=== PATIENT | female | born 1965 | race Caucasian/White ===

== ENCOUNTER 2017-03-24 07:50 | Emergency (ER) | payer SELFPAY ==
[~2017-03-24] VITALS: Ht 172.7 cm; Wt 75.0 kg
[~2017-03-24 07:50] MED LIST: BACT800T5 PO; DOXY100T PO
[2017-03-24 07:51] VITALS: BP 195/126; PULSE 98; RESP 14; TEMP 98; O2SAT 96
[2017-03-24 07:54] VITALS: BP 156/111; PULSE 82; RESP 16; O2SAT 98
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
== END 2017-03-24 08:33 | disposition left against medical advice (07) ==
LOC: NEPK 07:50
DX: J02.9 Acute pharyngitis, unspecified (principal)
CPT/HCPCS: 99281

== ENCOUNTER 2017-08-07 05:24 | Inpatient (IN) | payer OTHER ==
[~2017-08-07] VITALS: Ht 170.2 cm; Wt 52.8 kg
[2017-08-07] VITALS (17 sets, daily range): BP systolic 118–193; BP diastolic 84–122; PULSE 82–130; RESP 16–28; TEMP 97.7–98.8; O2SAT 95–100
[2017-08-07] MEDS ORDERED: RESP: LIDOCAINE HCL 4% PF 5 ML NEB NEB ONE (05:30)
[2017-08-07] MEDS ORDERED: DEXAMETHASONE SOD PHOS 4 MG/ML VIAL OTHER ONE (05:30)
[2017-08-07] MEDS ORDERED: DEXAMETHASONE SOD PHOS 4 MG/ML VIAL IM ONE (05:30)
[2017-08-07] MEDS ORDERED: DEXAMETHASONE SOD PHOS 20 MG/5 ML VIAL IV PUSH ONE (05:45)
[2017-08-07] MEDS ORDERED: hydrALAZINE HCL 20 MG/ML VIAL IV PUSH ONE (05:45)
[2017-08-07 06:02] LABS: BASOPHIL % 0.6 % (0.0-2.0); EOSINOPHIL # 0.1 TH/MM3 (0-0.4); EOSINOPHIL % 0.9 % (0.0-4.0); HEMATOCRIT 52.4 % (35.0-46.0); HEMOGLOBIN 18.8 GM/DL (11.6-15.3); LYMPH % 16.4 % (9.0-44.0); LYMPHOCYTE # 1.1 TH/MM3 (1.0-4.8); MEAN CELL VOLUME 97.1 FL (80.0-100.0); MEAN CORPUSCULAR HEMOGLOBIN 34.7 PG (27.0-34.0); MEAN CORPUSCULAR HGB CONC 35.8 % (32.0-36.0); MEAN PLATELET VOLUME 8.2 FL (7.0-11.0); MONO % 9.6 % (0.0-8.0); MONOCYTE # 0.7 TH/MM3 (0-0.9); NEUT % 72.5 % (16.0-70.0); PLATELET COUNT 209 TH/MM3 (150-450); WHITE BLOOD COUNT 6.9 TH/MM3 (4.0-11.0)
--- NOTE | 2017-08-07 06:11 | RADRPT ---
EXAM DATE/TIME: 08/07/2017 05:38 [facility] COMPARISON: No previous studies available for comparison. INDICATIONS : Short of breath. MEDICAL HISTORY : None. SURGICAL HISTORY : None. ENCOUNTER: Initial ACUITY: 1 day PAIN SCORE: 06/26 LOCATION: Bilateral chest FINDINGS: A single view of the chest demonstrates the lungs to be symmetrically aerated without evidence of mas s, infiltrate or effusion. The cardiomediastinal contours are unremarkable. Osseous structures are intact. CONCLUSION: No acute disease. Walker Sharif MD on August 07, 2017 at 6:10 Board Certified Radiologist. This report was verified electronically.
[2017-08-07 06:15] LABS: PROTHROMBIN TIME - PATIENT 9.9 SEC (9.8-11.6)
--- NOTE | 2017-08-07 06:22 | PD ---
HPI . Respiratory distress Chief Complaint: Respiratory Distress Time Seen by Provider: 05:28 Travel History International Travel<30 days: No Contact w/Intl Traveler<30days: No Traveled to known affect area: No History of Present Illness HPI 52-year-old female complains of having respiratory distress, difficulty breathing, states that "it feels like him breathing through a straw" this is been progressive over the past several months. Patient is a heavy active smoker for many years. Patient denies any fevers chills sweats, cough, production of sputum, leg edema or pain PFSH Past Medical History Narrative Medical Past medical history reviewed Hx Anticoagulant Therapy: No Cardiovascular Problems: Yes Chemotherapy: No COPD: Yes Cerebrovascular Accident: No Diabetes: Yes Patient Takes Glucophage: No Hypertension: Yes Respiratory: Yes Tetanus Vaccination: Unknown Influenza Vaccination: No ?: Not : 3 Para: 3 Past Surgical History Surgical History: No Previous Surgery Hysterectomy: No Social History Alcohol Use: Yes (A COUPLE OF TIMES A WEEK) Tobacco Use: Yes (1 PPD) Substance Use: Yes (MARIJUANA) Allergies-Medications (Allergen,Severity, Reaction): Coded Allergies: *MDRO Multi-Drug Resistant Organism (Verified Adverse Reaction, Unknown, ) MRSA (wound) - 11/07/15 Reported Meds & Prescriptions Reported Meds & Active Scripts Active No Active Prescriptions or Reported Medications Narrative Medication Allergies and medications reviewed Review of Systems Except as stated in HPI: all other systems reviewed are Neg General / Constitutional: No: Fever Eyes: No: Visual changes HENT: No: Headaches Cardiovascular: No: Chest Pain or Discomfort Respiratory: Positive: Shortness of Breath, Stridor, No: Cough, Wheezing, Sneezing, Orthopnea, Hemoptysis, Night Sweats, Pleuritic Pain Gastrointestinal: No: Abdominal Pain Genitourinary: No: Dysuria Musculoskeletal: No: Pain Skin: No Rash Neurologic: No: Weakness Psychiatric: No: Depression Endocrine: No: Polydipsia Hematologic/Lymphatic: No: Easy Bruising Physical Exam Narrative GENERAL: Awake and alert oriented 3 in mild to moderate respiratory distress. Oxygen saturation 96% on room air SKIN: Warm and dry. Color is normal diaphoresis and pallor HEAD: Atraumatic. Normocephalic. EYES: Pupils equal and round. No scleral icterus. No injection or drainage. ENT: No nasal bleeding or discharge. Mucous membranes pink and moist. NECK: Trachea midline. No JVD. Positive stridorous respirations. Possible right sided neck mass anteriorly CARDIOVASCULAR: Regular rate and rhythm. S1-S2 no murmurs rubs gallops RESPIRATORY: No accessory muscle use. Clear to auscultation. Breath sounds equal bilaterally. GASTROINTESTINAL: Abdomen soft, non-tender, nondistended. Hepatic and splenic margins not palpable. MUSCULOSKELETAL: Extremities without clubbing, cyanosis, or edema. No obvious deformities. NEUROLOGICAL: Awake and alert. No obvious gross focal deficits PSYCHIATRIC: Appropriate mood and affect; insight and judgment normal. Data Data Last Documented VS Vital Signs Date Time Temp Pulse Resp B/P (MAP) Pulse Ox O2 Delivery O2 Flow Rate FiO2 08/07/17 05:48 82 28 146/93 (110) 100 Room Air 08/07/17 05:26 97.7 Orders Orders Complete Blood Count With Diff (08/07/17 05:28) Comprehensive Metabolic Panel (08/07/17 05:28) B-Type Natriuretic Peptide (08/07/17 05:28) Act Partial Throm Time (Ptt) (08/07/17 05:28) Prothrombin Time / Inr (Pt) (08/07/17 05:28) Magnesium (Mg) (08/07/17 05:28) Ckmb (Isoenzyme) Profile (08/07/17 05:28) Troponin I (08/07/17 05:28) Urinalysis - C+S If Indicated (08/07/17 05:28) Iv Access Insert/Monitor (08/07/17 05:28) Electrocardiogram (08/07/17 05:28) Ecg Monitoring (08/07/17 05:28) Oximetry (08/07/17 05:28) Oxygen Administration (08/07/17 05:28) Chest, Single Ap (08/07/17 05:28) Sodium Chloride 0.9% Flush (Ns Flush) (08/07/17 05:30) Dexamethasone Inj (Decadron Inj) (08/07/17 05:30) Lidocaine Pf 4% Neb (Lidocaine Pf 4% Neb (08/07/17 05:30) Hydralazine Inj (Apresoline Inj) (08/07/17 05:45) Dexamethasone Inj (Decadron Inj) (08/07/17 05:45) Ct Soft Tiss Neck W Iv Cont (08/07/17 ) Iohexol 350 Inj (Omnipaque 350 Inj) (08/07/17 06:41) Labs Laboratory Tests Test 08/07/17 05:47 08/07/17 06:53 White Blood Count 6.9 TH/MM3 Red Blood Count 5.40 MIL/MM3 Hemoglobin 18.8 GM/DL Hematocrit 52.4 % Mean Corpuscular Volume 97.1 FL Mean Corpuscular Hemoglobin 34.7 PG Mean Corpuscular Hemoglobin Concent 35.8 % Red Cell Distribution Width 13.0 % Platelet Count 209 TH/MM3 Mean Platelet Volume 8.2 FL Neutrophils (%) (Auto) 72.5 % Lymphocytes (%) (Auto) 16.4 % Monocytes (%) (Auto) 9.6 % Eosinophils (%) (Auto) 0.9 % Basophils (%) (Auto) 0.6 % Neutrophils # (Auto) 5.0 TH/MM3 Lymphocytes # (Auto) 1.1 TH/MM3 Monocytes # (Auto) 0.7 TH/MM3 Eosinophils # (Auto) 0.1 TH/MM3 Basophils # (Auto) 0.0 TH/MM3 CBC Comment DIFF FINAL Differential Comment Prothrombin Time 9.9 SEC Prothromb Time International Ratio 1.0 RATIO Activated Partial Thromboplast Time 26.8 SEC Blood Urea Nitrogen 2 MG/DL Creatinine 0.50 MG/DL Random Glucose 94 MG/DL Total Protein 7.9 GM/DL Albumin 3.8 GM/DL Calcium Level 9.4 MG/DL Magnesium Level 2.0 MG/DL Alkaline Phosphatase 141 U/L Aspartate Amino Transf (AST/SGOT) 61 U/L Alanine Aminotransferase (ALT/SGPT) 56 U/L Total Bilirubin 0.8 MG/DL Sodium Level 126 MEQ/L Potassium Level 3.6 MEQ/L Chloride Level 85 MEQ/L Carbon Dioxide Level 33.3 MEQ/L Anion Gap 8 MEQ/L Estimat Glomerular Filtration Rate 131 ML/MIN Total Creatine Kinase 66 U/L Troponin I LESS THAN 0.02 NG/ML B-Type Natriuretic Peptide 58 PG/ML Urine Color LIGHT-YELLOW Urine Turbidity CLEAR Urine pH 7.5 Urine Specific Reeves 1.040 Urine Protein NEG mg/dL Urine Glucose (UA) NEG mg/dL Urine Ketones 10 mg/dL Urine Occult Blood NEG Urine Nitrite NEG Urine Bilirubin NEG Urine Urobilinogen LESS THAN 2.0 MG/DL Urine Leukocyte Esterase MOD Urine RBC 1 /hpf Urine WBC 5 /hpf Urine Squamous Epithelial Cells 1 /hpf Urine Bacteria RARE /hpf Microscopic Urinalysis Comment CULT NOT INDICATED MDM Medical Decision Making Medical Screen Exam Complete: Yes Emergency Medical Condition: Yes Medical Record Reviewed: Yes Differential Diagnosis Stridor, neck mass, COPD exacerbation Narrative Course Patient had no improvement with Decadron/lidocaine via nebulizer treatment. Laboratory examination reviewed, no significant abnormalities CT soft tissue neck, right-sided. Her laryngeal mass consistent with exam and presentation. Pending ENT evaluation and admission to medical service Diagnosis Primary Impression: Laryngeal mass Additional Impression: Stridor Admitting Information Admitting Physician Requests: Admit Scripts No Active Prescriptions or Reported Meds Errol Velez MD Aug 07, 2017 06:22
[2017-08-07 06:30] LABS: ALBUMIN 3.8 GM/DL (3.4-5.0); ALT (GPT) 56 U/L (10-53); AST (GOT) 61 U/L (15-37); BICARBONATE 33.3 MEQ/L (21.0-32.0); BLOOD UREA NITROGEN 2 MG/DL (7-18); CALCIUM 9.4 MG/DL (8.5-10.1); CHLORIDE 85 MEQ/L (98-107); GLOMERULAR FILTRATION RATE 131 ML/MIN (>89); GLUCOSE,RANDOM 94 MG/DL (74-106); SODIUM (NA) 126 MEQ/L (136-145)
[2017-08-07 06:34] LABS: ALKALINE PHOSPHATASE 141 U/L (45-117); TOTAL BILIRUBIN ADULT 0.8 MG/DL (0.2-1.0); TOTAL PROTEIN 7.9 GM/DL (6.4-8.2); TROPONIN I LESS THAN 0.02 NG/ML (0.02-0.05)
[2017-08-07] MEDS ORDERED: IOHEXOL 350 MG/ML 10 ML VIAL (for RAD DIAG) IVCONTRAST ONE (06:41)
--- NOTE | 2017-08-07 07:00 | RADRPT ---
EXAM DATE/TIME: 08/07/2017 06:35 This report includes an Addendum and supersedes previous reports for this exam. [facility] COMPARISON: No previous studies available for comparison. INDICATIONS : Stridor. Difficulty breathing. Evaluate for mass. IV CONTRAST: 72 cc Omnipaque 350 (iohexol) IV RADIATION DOSE: 13.44 CTDIvol (mGy) MEDICAL HISTORY : Chronic obstructive pulmonary disease. Hypertension. SURGICAL HISTORY : None. ENCOUNTER: Initial ACUITY: 1 day PAIN SCALE: 6/10 LOCATION: Bilateral neck TECHNIQUE: Volumetric scanning of the neck was performed. Using automated exposure control and adjustment of th e mA and/or kV according to patient size, radiation dose was kept as low as reasonably achievable to obtain optimal diagnostic quality images. DICOM format image data is available electronically for r eview and comparison. FINDINGS: NASOPHARYNX: The nasopharyngeal airway has a normal configuration. No mucosal thickening or mass is seen. OROPHARYNX: The intrinsic muscles of the tongue are symmetric. The tonsillar pillars are intact. The prevertebr al soft tissues are not thickened. LARYNX: There is a soft tissue mass involving the left piriform sinus and aryepiglottic fold. This is indisti nct and demonstrates areas of enhancement. This measures up to at least 2 cm in diameter. There is mi dline shift of the soft tissue structures to the right. The airway is mild to moderately narrowed. PARAPHARYNGEAL: The parapharyngeal space is intact. SALIVARY GLANDS: The parotid and submandibular glands are intact. LYMPH NODES: No enlarged or necrotic-appearing nodes. There is small left cervical chain nodes measuring up to a c entimeter which may be reactive. THYROID: Homogeneous enhancement without evidence of nodule. BONES: Unremarkable. There is emphysema in the lung apices. CONCLUSION: 1. Soft tissue mass involving left performed sinuses and aryepiglottic folds most characteristic of a tumor. Direct visualization is recommended. 2. Small left cervical chain nodes which may be reactive. 3. Emphysema in the lung apices. Walker Sharif MD on August 07, 2017 at 6:54 Board Certified Radiologist. This report was verified electronically. 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 There is extra laryngeal pe netration by the mass into the left anterolateral subcutaneous soft tissues at the level of the commi ssure. Infraglottic extension of the mass is seen concentrically involving the cricoid cartilage. Arnaldo Okeefe MD on August 21, 2017 at 15:23 Board Certified Radiologist. This report was verified electronically.
[2017-08-07 07:21] LABS: BACTERIA, URINE RARE /hpf; BILIRUBIN, URINE NEG (NEG); BLOOD, URINE NEG (NEG); GLUCOSE,URINE NEG (NEG); KETONE, URINE 10 mg/dL (NEG); NITRITE,URINE NEG (NEG); PH, URINE 7.5 (5.0-8.5); SQUAMOUS EPITHELIAL CELL URINE 1 /hpf (0-5); URINE COLOR LIGHT-YELLOW (YELLW/STRAW); URINE LEUKOCYTE ESTERASE MOD (NEG)
[2017-08-07] MEDS ORDERED: RESP: ALBUTEROL 1.25 MG/3 ML NEB (PRN) NEB (07:45)
[2017-08-07] MEDS ORDERED: ONDANSETRON HCL 4 MG/2 ML VIAL IV PUSH PRN (07:45)
[2017-08-07] MEDS ORDERED: SODIUM CHLOR 0.9% 1000 ML INJ 1,000 ML IV SCH (07:45)
--- NOTE | 2017-08-07 07:50 | EKG ---
Date Performed: 08/07/2017 Time Performed: 05:30:35 PTAGE: 52 years EKG: SINUS TACHYCARDIA RIGHT ATRIAL ENLARGEMENT POSSIBLE LEFT ATRIAL ENLARGEMENT ABNORMAL ECG NO PREVIOUS TRACING DOCTOR: Jose Bedoya Interpretating Date/Time 08/07/2017 07:49:20
--- NOTE | 2017-08-07 08:01 | HHI.HP ---
[facility] Service [facility] Primary Care Physician No Primary Care Physician Admission Diagnosis neck mass, airway impingement Diagnoses: (1) Laryngeal mass Diagnosis: Principal Chief Complaint: hoarseness Travel History International Travel<30 Days: No Contact w/Intl Traveler <30 Da: No Traveled to Known Affected Are: No History of Present Illness patient is a 52 y/o female , chronic smoker with history of alcohol abuse, who presented to ER with hoarseness. she says that it's been going on for a couple of months. she's complaining of difficult breathing and swallowing for the past two months. she's lost about 15 pounds over the past few weeks.she's having cough productive of whitish sputum with no report of fever or chills. she says that it seems that her hoarseness has been getting worse. Review of Systems Constitutional: COMPLAINS OF: Weight loss, DENIES: Fever, Chills, Night Sweats Eyes: DENIES: Blurred vision, Diplopia, Vision loss, Double Vision Ears, nose, mouth, throat: COMPLAINS OF: Hoarseness, DENIES: Tinnitus, Vertigo , Throat pain, Epistaxis Respiratory: COMPLAINS OF: Cough, Sputum production, Shortness of breath, DENIES: Apneas, Snoring, Wheezing, Hemoptysis Cardiovascular: DENIES: Chest pain, Palpitations, Syncope, Dyspnea on Exertion , PND, Lower Extremity Edema, Orthopnea, Claudication Gastrointestinal: COMPLAINS OF: Difficulty Swallowing, DENIES: Abdominal pain, Black stools, Bloody stools, Constipation, Diarrhea, Nausea, Vomiting, Anorexia Genitourinary: DENIES: Urinary frequency, Urgency, Hematuria, Dysuria Musculoskeletal: DENIES: Joint pain, Muscle aches, Stiffness, Joint Swelling Integumentary: DENIES: Rash Neurologic: DENIES: Abnormal gait, Headache, Localized weakness, Paresthesias, Seizures, Speech Problems, Tremor, Poor Balance Psychiatric: DENIES: Anxiety, Confusion, Mood changes, Depression, Hallucinations, Agitation, Suicidal Ideation, Homicidal Ideation, Delusions Past Family Social History Past Medical History not significant except questionable diabetes. Past Surgical History tubal ligation. Reported Medications none. Allergies: Coded Allergies: *MDRO Multi-Drug Resistant Organism (Verified Adverse Reaction, Unknown, ) MRSA (wound) - 11/07/15 Active Ordered Medications Inpatient Medications Dexamethasone Sodium Phosphate (Decadron Inj) 10 mg ONCE ONCE IV PUSH Last administered on 08/07/17at 05:46; Start 08/07/17 at 05:45; Stop 08/07/17 at 05:46 ; Status DC Hydralazine HCl (Apresoline Inj) 10 mg ONCE ONCE IV PUSH Last administered on 08/07/17at 05:44; Start 08/07/17 at 05:45; Stop 08/07/17 at 05:46; Status DC Lidocaine HCl (Lidocaine Pf 4% Neb) 1 ml ONCE ONCE NEB Last administered on at 05:30; Start 08/07/17 at 05:30; Stop 08/07/17 at 05:31; Status DC Sodium Chloride (NS Flush) 2 ml UNSCH PRN IVF FLUSH AFTER USING IV ACCESS; Start 08/07/17 at 05:30 Family History cancer in mother. Social History used to smoke one pack and half a day with heavy alcohol abuse. Physical Exam Vital Signs Vital Signs Date Time Temp Pulse Resp B/P (MAP) Pulse Ox O2 Delivery O2 Flow Rate FiO2 08/07/17 07:10 98.1 95 22 142/99 (113) 96 Room Air 08/07/17 07:10 96 Room Air 08/07/17 07:10 118 22 96 Room Air 08/07/17 07:10 22 96 Room Air 08/07/17 05:48 82 28 146/93 (110) 100 Room Air 08/07/17 05:34 100 Room Air 08/07/17 05:34 107 99 Room Air 08/07/17 05:34 24 100 Room Air 08/07/17 05:26 97.7 122 24 193/122 (145) 98 Physical Exam GENERAL: in no acute distress but sounds hoarse. SKIN: No rashes, ecchymoses or lesions. Cool and dry. HEAD: Atraumatic. Normocephalic. No temporal or scalp tenderness. EYES: Pupils equal round and reactive. Extraocular motions intact. No scleral icterus. No injection or drainage. ENT: Nose without bleeding, purulent drainage or septal hematoma. Throat without erythema, tonsillar hypertrophy or exudate. Uvula midline. Airway patent. NECK: Trachea midline. No JVD or lymphadenopathy. Supple, nontender, no meningeal signs. CARDIOVASCULAR: Regular rate and rhythm without murmurs, gallops, or rubs. RESPIRATORY: Clear to auscultation. Breath sounds equal bilaterally. No wheezes , rales, or rhonchi. GASTROINTESTINAL: Abdomen soft, non-tender, nondistended. No hepato-splenomegaly , or palpable masses. No guarding. MUSCULOSKELETAL: Extremities without clubbing, cyanosis, or edema. No joint tenderness, effusion, or edema noted. No calf tenderness. Negative Homans sign bilaterally. NEUROLOGICAL: Awake and alert. Cranial nerves II through XII intact. Motor and sensory grossly within normal limits. Five out of 5 muscle strength in all muscle groups. Normal speech. Laboratory Laboratory Tests Test 08/07/17 05:47 08/07/17 06:53 White Blood Count 6.9 Red Blood Count 5.40 Hemoglobin 18.8 Hematocrit 52.4 Mean Corpuscular Volume 97.1 Mean Corpuscular Hemoglobin 34.7 Mean Corpuscular Hemoglobin Concent 35.8 Red Cell Distribution Width 13.0 Platelet Count 209 Mean Platelet Volume 8.2 Neutrophils (%) (Auto) 72.5 Lymphocytes (%) (Auto) 16.4 Monocytes (%) (Auto) 9.6 Eosinophils (%) (Auto) 0.9 Basophils (%) (Auto) 0.6 Neutrophils # (Auto) 5.0 Lymphocytes # (Auto) 1.1 Monocytes # (Auto) 0.7 Eosinophils # (Auto) 0.1 Basophils # (Auto) 0.0 CBC Comment DIFF FINAL Differential Comment Prothrombin Time 9.9 Prothromb Time International Ratio 1.0 Activated Partial Thromboplast Time 26.8 Blood Urea Nitrogen 2 Creatinine 0.50 Random Glucose 94 Total Protein 7.9 Albumin 3.8 Calcium Level 9.4 Magnesium Level 2.0 Alkaline Phosphatase 141 Aspartate Amino Transf (AST/SGOT) 61 Alanine Aminotransferase (ALT/SGPT) 56 Total Bilirubin 0.8 Sodium Level 126 Potassium Level 3.6 Chloride Level 85 Carbon Dioxide Level 33.3 Anion Gap 8 Estimat Glomerular Filtration Rate 131 Total Creatine Kinase 66 Troponin I LESS THAN 0.02 B-Type Natriuretic Peptide 58 Urine Color LIGHT-YELLOW Urine Turbidity CLEAR Urine pH 7.5 Urine Specific [place] 1.040 Urine Protein NEG Urine Glucose (UA) NEG Urine Ketones 10 Urine Occult Blood NEG Urine Nitrite NEG Urine Bilirubin NEG Urine Urobilinogen LESS THAN 2.0 Urine Leukocyte Esterase MOD Urine RBC 1 Urine WBC 5 Urine Squamous Epithelial Cells 1 Urine Bacteria RARE Microscopic Urinalysis Comment CULT NOT INDICATED Result Diagram: 08/07/17 0547 08/07/17 0547 Imaging Last Impressions Chest X-Ray 08/07/17 0528 Signed Impressions: Service Date/Time: Monday, August 07, 2017 05:38 - CONCLUSION: No acute disease. Walker Sharif MD Neck CT 08/07/17 0000 Signed Impressions: Service Date/Time: Monday, August 07, 2017 06:35 - CONCLUSION: 1. Soft tissue mass involving left performed sinuses and aryepiglottic folds most characteristic of a tumor. Direct visualization is recommended. 2. Small left cervical chain nodes which may be reactive. 3. Emphysema in the lung apices. Walker Sharif MD Caproycei VTE Risk Assessment Caprini VTE Risk Assessment: Mod/High Risk (score >= 2) Caprini Risk Assessment Model Point Value = 1 Point Value = 2 Point Value = 3 Point Value = 5 Age 41-60 Minor surgery BMI > 25 kg/m2 Swollen legs Varicose veins or History of unexplained or recurrent spontaneous Oral contraceptives or hormone replacement Sepsis (< 1 month) Serious lung disease, including pneumonia (< 1 month) Abnormal pulmonary function Acute myocardial infarction Congestive heart failure (< 1 month) History of inflammatory bowel disease Medical patient at bed rest Age 61-74 Arthroscopic surgery Major open surgery (> 45 min) Laparoscopic surgery (> 45 min) Malignancy Confined to bed (> 72 hours) Immobilizing plaster cast Central venous access Age >= 75 History of VTE Family history of VTE Factor V Leiden Prothrombin [id number] Lupus anticoagulant Anticardiolipin antibodies Elevated serum homocysteine Heparin-induced thrombocytopenia Other congenital or acquired thrombophilia Stroke (< 1 month) Elective arthroplasty Hip, pelvis, or leg fracture Acute spinal cord injury (< 1 month) Prophylaxis Regimen Total Risk Factor Score Risk Level Prophylaxis Regimen 0-1 Low Early ambulation 2 Moderate Order ONE of the following: *Sequential Compression Device (SCD) *Heparin 5000 units SQ BID 3-4 Higher Order ONE of the following medications: *Heparin 5000 units SQ TID *Enoxaparin/Lovenox 40 mg SQ daily (WT < 150 kg, CrCl > 30 mL/min) *Enoxaparin/Lovenox 30 mg SQ daily (WT < 150 kg, CrCl > 10-29 mL/min) *Enoxaparin/Lovenox 30 mg SQ BID (WT < 150 kg, CrCl > 30 mL/min) AND/OR *Sequential Compression Device (SCD) 5 or more Highest Order ONE of the following medications: *Heparin 5000 units SQ TID (Preferred with Epidurals) *Enoxaparin/Lovenox 40 mg SQ daily (WT < 150 kg, CrCl > 30 mL/min) *Enoxaparin/Lovenox 30 mg SQ daily (WT < 150 kg, CrCl > 10-29 mL/min) *Enoxaparin/Lovenox 30 mg SQ BID (WT < 150 kg, CrCl > 30 mL/min) AND *Sequential Compression Device (SCD) Assessment and Plan Assessment and Plan A/P - laryngeal mass/ stridor keep NPO for now- consult ENT. received IV steroids earlier. continue with oxygen and neb treatment as needed. -hyponatremia check urine and serum osmolality- check TSH. start on IV NS-continue to monitor the sodium level. -elevated LFT's- likely due to alcohol abuse check hepatitis panel -DVT prophylaxis with SCD's- no chemical prophylaxis till evaluated by roofing laborer and ENT. d/w the ER physician and will roofing laborer will be consulted for possible need for emergent tracheostomy. critical care time 35 min. Discussed Condition With ER physician and the patient. Physician Certification 2 Midnight Certification Type: Admission for Inpatient Services Order for Inpatient Services The services are ordered in accordance with Medicare regulations or non- Medicare payer requirements, as applicable. In the case of services not specified as inpatient-only, they are appropriately provided as inpatient services in accordance with the 2-midnight benchmark. Estimated LOS (days): 2 days is the estimated time the patient will need to remain in the hospital, assuming treatment plan goals are met and no additional complications. Post-Hospital Plan: Home Anuradha Jay MD Aug 07, 2017 08:01
[2017-08-07] MEDS: SODIUM CHLORIDE 0.9% FLUSH 10 ML FLUSH IVF PRN (08:12)
--- NOTE | 2017-08-07 09:08 | PD ---
Physical Exam Narrative Patient originally seen by Dr. Velez. Patient is sitting in the bed comfortably. She is breathing normally, but voice is hoarse. Data Data Last Documented VS Vital Signs Date Time Temp Pulse Resp B/P (MAP) Pulse Ox O2 Delivery O2 Flow Rate FiO2 08/07/17 07:10 98.1 95 22 142/99 (113) 96 Room Air Orders Orders Complete Blood Count With Diff (08/07/17 05:28) Comprehensive Metabolic Panel (08/07/17 05:28) B-Type Natriuretic Peptide (08/07/17 05:28) Act Partial Throm Time (Ptt) (08/07/17 05:28) Prothrombin Time / Inr (Pt) (08/07/17 05:28) Magnesium (Mg) (08/07/17 05:28) Ckmb (Isoenzyme) Profile (08/07/17 05:28) Troponin I (08/07/17 05:28) Urinalysis - C+S If Indicated (08/07/17 05:28) Iv Access Insert/Monitor (08/07/17 05:28) Electrocardiogram (08/07/17 05:28) Ecg Monitoring (08/07/17 05:28) Oximetry (08/07/17 05:28) Oxygen Administration (08/07/17 05:28) Chest, Single Ap (08/07/17 05:28) Sodium Chloride 0.9% Flush (Ns Flush) (08/07/17 05:30) Dexamethasone Inj (Decadron Inj) (08/07/17 05:30) Lidocaine Pf 4% Neb (Lidocaine Pf 4% Neb (08/07/17 05:30) Hydralazine Inj (Apresoline Inj) (08/07/17 05:45) Dexamethasone Inj (Decadron Inj) (08/07/17 05:45) Ct Soft Tiss Neck W Iv Cont (08/07/17 ) Iohexol 350 Inj (Omnipaque 350 Inj) (08/07/17 06:41) Admit Order (Ed Use Only) (08/07/17 ) Labs Laboratory Tests Test 08/07/17 05:47 08/07/17 06:53 White Blood Count 6.9 TH/MM3 Red Blood Count 5.40 MIL/MM3 Hemoglobin 18.8 GM/DL Hematocrit 52.4 % Mean Corpuscular Volume 97.1 FL Mean Corpuscular Hemoglobin 34.7 PG Mean Corpuscular Hemoglobin Concent 35.8 % Red Cell Distribution Width 13.0 % Platelet Count 209 TH/MM3 Mean Platelet Volume 8.2 FL Neutrophils (%) (Auto) 72.5 % Lymphocytes (%) (Auto) 16.4 % Monocytes (%) (Auto) 9.6 % Eosinophils (%) (Auto) 0.9 % Basophils (%) (Auto) 0.6 % Neutrophils # (Auto) 5.0 TH/MM3 Lymphocytes # (Auto) 1.1 TH/MM3 Monocytes # (Auto) 0.7 TH/MM3 Eosinophils # (Auto) 0.1 TH/MM3 Basophils # (Auto) 0.0 TH/MM3 CBC Comment DIFF FINAL Differential Comment Prothrombin Time 9.9 SEC Prothromb Time International Ratio 1.0 RATIO Activated Partial Thromboplast Time 26.8 SEC Blood Urea Nitrogen 2 MG/DL Creatinine 0.50 MG/DL Random Glucose 94 MG/DL Total Protein 7.9 GM/DL Albumin 3.8 GM/DL Calcium Level 9.4 MG/DL Magnesium Level 2.0 MG/DL Alkaline Phosphatase 141 U/L Aspartate Amino Transf (AST/SGOT) 61 U/L Alanine Aminotransferase (ALT/SGPT) 56 U/L Total Bilirubin 0.8 MG/DL Sodium Level 126 MEQ/L Potassium Level 3.6 MEQ/L Chloride Level 85 MEQ/L Carbon Dioxide Level 33.3 MEQ/L Anion Gap 8 MEQ/L Estimat Glomerular Filtration Rate 131 ML/MIN Total Creatine Kinase 66 U/L Troponin I LESS THAN 0.02 NG/ML B-Type Natriuretic Peptide 58 PG/ML Urine Color LIGHT-YELLOW Urine Turbidity CLEAR Urine pH 7.5 Urine Specific [place] 1.040 Urine Protein NEG mg/dL Urine Glucose (UA) NEG mg/dL Urine Ketones 10 mg/dL Urine Occult Blood NEG Urine Nitrite NEG Urine Bilirubin NEG Urine Urobilinogen LESS THAN 2.0 MG/DL Urine Leukocyte Esterase MOD Urine RBC 1 /hpf Urine WBC 5 /hpf Urine Squamous Epithelial Cells 1 /hpf Urine Bacteria RARE /hpf Microscopic Urinalysis Comment CULT NOT INDICATED Urine Osmolality 192 MOSM/KG MDM Supervised Visit with VANESSA: No Narrative Course CT of the neck shows a large mass. She was given Decadron. ENT consulted. Patient admitted to the ICU due to airway concerns. Diagnosis Primary Impression: Laryngeal mass Additional Impression: Stridor Admitting Information Admitting Physician Requests: Admit Scripts No Active Prescriptions or Reported Meds Samira Gabriel MD Aug 07, 2017 09:08
[2017-08-07] MEDS ORDERED: CHLORHEXIDINE GLUCONATE 2 % 1 PACK (2 CLOTHS) TOP PRN (09:15)
[2017-08-07] MEDS ORDERED: MISCELLANEOUS NURSING INFORMATION XX SCH (09:15)
[2017-08-07] MEDS ORDERED: RESP: ALBUTEROL 2.5 MG/IPRATROPIUM 0.5 MG NEB (PRN) INH (09:15)
[2017-08-07] MEDS: SODIUM CHLOR 0.9% 1000 ML INJ 1,000 ML IV SCH ×2 (09:17→21:18)
--- NOTE | 2017-08-07 09:20 | HHI.HP ---
[facility] Service Critical Care Medicine Primary Care Physician No Primary Care Physician Admission Diagnosis difficulty breathing, neck mass, airway impingement Diagnosis: (1) Acute airway obstruction Diagnosis: Principal (2) Laryngeal mass Diagnosis: Principal (3) Stridor Diagnosis: Principal Chief Complaint: I feel like I'm breathing through a straw. Travel History International Travel<30 Days: No Contact w/Intl Traveler <30 Da: No Traveled to Known Affected Are: No History of Present Illness 52 y/o female , chronic smoker with history of alcohol abuse, who presented to ER with hoarseness, difficulty breathing. She says that it's been going on for a couple of months. Complaining of worsening difficult breathing and swallowing for the past two months. she's lost about 15 pounds over the past few weeks. Cough productive of whitish sputum with no report of fever or chills. she says that it seems that her hoarseness has been getting worse. Review of Systems ROS Difficulty breathing in, struggling to get a breath. Past Family Social History Allergies: Coded Allergies: *MDRO Multi-Drug Resistant Organism (Verified Adverse Reaction, Unknown, ) MRSA (wound) - 11/07/15 Past Medical History Past Medical History Narrative Medical Past medical history reviewed Hx Anticoagulant Therapy: No Cardiovascular Problems: Yes Chemotherapy: No COPD: Yes Cerebrovascular Accident: No Diabetes: Yes Patient Takes Glucophage: No Hypertension: Yes Respiratory: Yes Tetanus Vaccination: Unknown Influenza Vaccination: No ?: Not : 3 Para: 3 Past Surgical History Surgical History: No Previous Surgery Hysterectomy: No Social History Alcohol Use: Yes (A COUPLE OF TIMES A WEEK) Tobacco Use: Yes (1 PPD) Substance Use: Yes (MARIJUANA) Allergies-Medications Allergies-Medications (Allergen,Severity, Reaction): Coded Allergies: *MDRO Multi-Drug Resistant Organism (Verified Adverse Reaction, Unknown, ) MRSA (wound) - 11/07/15 Reported Meds & Prescriptions Reported Meds & Active Scripts Active No Active Prescriptions or Reported Medications Narrative Medication Allergies and medications reviewed Physical Exam Vital Signs Vital Signs Date Time Temp Pulse Resp B/P (MAP) Pulse Ox O2 Delivery O2 Flow Rate FiO2 08/07/17 07:10 98.1 95 22 142/99 (113) 96 Room Air 08/07/17 07:10 96 Room Air 2/21/18 07:10 118 22 96 Room Air 08/07/17 07:10 22 96 Room Air 08/07/17 05:48 82 28 146/93 (110) 100 Room Air 08/07/17 05:34 100 Room Air 08/07/17 05:34 107 99 Room Air 08/07/17 05:34 24 100 Room Air 08/07/17 05:26 97.7 122 24 193/122 (145) 98 Physical Exam Head: Atraumatic. Neck: Fullness left lateral neck at cricoid level and above. Airway with high- pitched stridor. Lungs: Transmitted stridor, otherwise clear. Heart: NL S1S2, RRR. No JVD. Abdomen: Benign, soft. Extremities: Warm, well perfused. No edema. Neuro: O X 3, alert, M/S grossly intact. Hoarse. Struggling to inhale. Laboratory Laboratory Tests Test 08/07/17 05:47 08/07/17 06:53 White Blood Count 6.9 Red Blood Count 5.40 Hemoglobin 18.8 Hematocrit 52.4 Mean Corpuscular Volume 97.1 Mean Corpuscular Hemoglobin 34.7 Mean Corpuscular Hemoglobin Concent 35.8 Red Cell Distribution Width 13.0 Platelet Count 209 Mean Platelet Volume 8.2 Neutrophils (%) (Auto) 72.5 Lymphocytes (%) (Auto) 16.4 Monocytes (%) (Auto) 9.6 Eosinophils (%) (Auto) 0.9 Basophils (%) (Auto) 0.6 Neutrophils # (Auto) 5.0 Lymphocytes # (Auto) 1.1 Monocytes # (Auto) 0.7 Eosinophils # (Auto) 0.1 Basophils # (Auto) 0.0 CBC Comment DIFF FINAL Differential Comment Prothrombin Time 9.9 Prothromb Time International Ratio 1.0 Activated Partial Thromboplast Time 26.8 Blood Urea Nitrogen 2 Creatinine 0.50 Random Glucose 94 Total Protein 7.9 Albumin 3.8 Calcium Level 9.4 Magnesium Level 2.0 Alkaline Phosphatase 141 Aspartate Amino Transf (AST/SGOT) 61 Alanine Aminotransferase (ALT/SGPT) 56 Total Bilirubin 0.8 Sodium Level 126 Potassium Level 3.6 Chloride Level 85 Carbon Dioxide Level 33.3 Anion Gap 8 Estimat Glomerular Filtration Rate 131 Total Creatine Kinase 66 Troponin I LESS THAN 0.02 B-Type Natriuretic Peptide 58 Urine Color LIGHT-YELLOW Urine Turbidity CLEAR Urine pH 7.5 Urine Specific [place] 1.040 Urine Protein NEG Urine Glucose (UA) NEG Urine Ketones 10 Urine Occult Blood NEG Urine Nitrite NEG Urine Bilirubin NEG Urine Urobilinogen LESS THAN 2.0 Urine Leukocyte Esterase MOD Urine RBC 1 Urine WBC 5 Urine Squamous Epithelial Cells 1 Urine Bacteria RARE Microscopic Urinalysis Comment CULT NOT INDICATED Result Diagram: 08/07/1747 08/07/1747 Caprini VTE Risk Assessment Caprini VTE Risk Assessment: Mod/High Risk (score >= 2) Caprini Risk Assessment Model Point Value = 1 Point Value = 2 Point Value = 3 Point Value = 5 Age 41-60 Minor surgery BMI > 25 kg/m2 Swollen legs Varicose veins or History of unexplained or recurrent spontaneous Oral contraceptives or hormone replacement Sepsis (< 1 month) Serious lung disease, including pneumonia (< 1 month) Abnormal pulmonary function Acute myocardial infarction Congestive heart failure (< 1 month) History of inflammatory bowel disease Medical patient at bed rest Age 61-74 Arthroscopic surgery Major open surgery (> 45 min) Laparoscopic surgery (> 45 min) Malignancy Confined to bed (> 72 hours) Immobilizing plaster cast Central venous access Age >= 75 History of VTE Family history of VTE Factor V Leiden Prothrombin [id number] Lupus anticoagulant Anticardiolipin antibodies Elevated serum homocysteine Heparin-induced thrombocytopenia Other congenital or acquired thrombophilia Stroke (< 1 month) Elective arthroplasty Hip, pelvis, or leg fracture Acute spinal cord injury (< 1 month) Prophylaxis Regimen Total Risk Factor Score Risk Level Prophylaxis Regimen 0-1 Low Early ambulation 2 Moderate Order ONE of the following: *Sequential Compression Device (SCD) *Heparin 5000 units SQ BID 3-4 Higher Order ONE of the following medications: *Heparin 5000 units SQ TID *Enoxaparin/Lovenox 40 mg SQ daily (WT < 150 kg, CrCl > 30 mL/min) *Enoxaparin/Lovenox 30 mg SQ daily (WT < 150 kg, CrCl > 10-29 mL/min) *Enoxaparin/Lovenox 30 mg SQ BID (WT < 150 kg, CrCl > 30 mL/min) AND/OR *Sequential Compression Device (SCD) 5 or more Highest Order ONE of the following medications: *Heparin 5000 units SQ TID (Preferred with Epidurals) *Enoxaparin/Lovenox 40 mg SQ daily (WT < 150 kg, CrCl > 30 mL/min) *Enoxaparin/Lovenox 30 mg SQ daily (WT < 150 kg, CrCl > 10-29 mL/min) *Enoxaparin/Lovenox 30 mg SQ BID (WT < 150 kg, CrCl > 30 mL/min) AND *Sequential Compression Device (SCD) Assessment and Plan Problem List: (1) Stridor ICD Code: R06.1 - Stridor Status: Acute (2) Laryngeal mass ICD Code: J38.7 - Other diseases of larynx Status: Acute (3) Acute airway obstruction ICD Code: J98.8 - Other specified respiratory disorders Assessment and Plan Plan: 1. ICU admission. 2. Racemic epinephrine. 3. HOB up 30. 4. Clindamycin 5. Avoid chemical DVT px. 6. Pepcid. 7. May need emergent trach. Overall impression: Critical airway. Needs protection immediately, will require emergency tracheostomy. Critically ill with airway obstruction. Critical Care 45 mins aside from procedures. Jesus Magana MD Aug 07, 2017 09:19
[2017-08-07] MEDS ORDERED: MORPHINE SULFATE 2 MG/ML INJ IV PUSH PRN (09:30)
[2017-08-07] MEDS ORDERED: MIDAZOLAM HCL 5 MG/5 ML VIAL IV PUSH ONE (10:30)
[2017-08-07] MEDS ORDERED: fentaNYL CITRATE 250 MCG/5 ML AMP IV PUSH ONE (10:30)
[2017-08-07] MEDS ORDERED: MIDAZOLAM HCL 5 MG/ML VIAL (1 ML) ONE (10:35)
--- NOTE | 2017-08-07 10:55 | PD.CONS ---
History of Present Illness Service ENT Consult Requested By ED Reason for Consult Laryngeal tumor Primary Care Physician No Primary Care Physician Diagnoses: History of Present Illness 52 year old female smoker, several months increasing airway obstruction. Presneted to ED feeling like she is breathing through a straw. CT confirms at least 2 cm left laryngeal tumor. Patient in ICU, about to have tracheostomy. She is alert with daughter at bedside and able to complete interview. Review of Systems Ears, nose, mouth, throat: COMPLAINS OF: Throat pain, Hoarseness, Odynophagia, DENIES: Nasal discharge, Oral lesions Past Family Social History Allergies: Coded Allergies: *MDRO Multi-Drug Resistant Organism (Verified Adverse Reaction, Unknown, ) MRSA (wound) - 11/07/15 Physical Exam Vital Signs Vital Signs Date Time Temp Pulse Resp B/P (MAP) Pulse Ox O2 Delivery O2 Flow Rate FiO2 08/07/17 09:35 97.8 102 22 129/84 (99) 97 08/07/17 07:10 98.1 95 22 142/99 (113) 96 Room Air 08/07/17 07:10 96 Room Air 08/07/17 07:10 118 22 96 Room Air 08/07/17 07:10 22 96 Room Air 08/07/17 05:48 82 28 146/93 (110) 100 Room Air 08/07/17 05:34 100 Room Air 08/07/17 05:34 107 99 Room Air 08/07/17 05:34 24 100 Room Air 08/07/17 05:26 97.7 122 24 193/122 (145) 98 Physical Exam GENERAL: This is a well-nourished, thin patient, in mild respiratory distress. SKIN: No rashes, ecchymoses or lesions. Cool and dry. HEAD: Atraumatic. Normocephalic. No temporal or scalp tenderness. EYES: Pupils equal round and reactive. Extraocular motions intact. No scleral icterus. No injection or drainage. ENT: Nose without bleeding, purulent drainage or septal hematoma. Throat without erythema, tonsillar hypertrophy or exudate. Uvula midline. Airway patent. NECK: Trachea midline. No JVD or lymphadenopathy. Supple, nontender, no meningeal signs. NEUROLOGICAL: Awake and alert. Hoarse. Normal speech. Laboratory Laboratory Tests Test 08/07/17 05:47 08/07/17 06:53 08/07/17 09:30 08/07/17 10:30 White Blood Count 6.9 Red Blood Count 5.40 Hemoglobin 18.8 Hematocrit 52.4 Mean Corpuscular Volume 97.1 Mean Corpuscular Hemoglobin 34.7 Mean Corpuscular Hemoglobin Concent 35.8 Red Cell Distribution Width 13.0 Platelet Count 209 Mean Platelet Volume 8.2 Neutrophils (%) (Auto) 72.5 Lymphocytes (%) (Auto) 16.4 Monocytes (%) (Auto) 9.6 Eosinophils (%) (Auto) 0.9 Basophils (%) (Auto) 0.6 Neutrophils # (Auto) 5.0 Lymphocytes # (Auto) 1.1 Monocytes # (Auto) 0.7 Eosinophils # (Auto) 0.1 Basophils # (Auto) 0.0 CBC Comment DIFF FINAL Differential Comment Prothrombin Time 9.9 Prothromb Time International Ratio 1.0 Activated Partial Thromboplast Time 26.8 Blood Urea Nitrogen 2 Creatinine 0.50 Random Glucose 94 Total Protein 7.9 Albumin 3.8 Calcium Level 9.4 Magnesium Level 2.0 Alkaline Phosphatase 141 Aspartate Amino Transf (AST/SGOT) 61 Alanine Aminotransferase (ALT/SGPT) 56 Total Bilirubin 0.8 Sodium Level 126 Potassium Level 3.6 Chloride Level 85 Carbon Dioxide Level 33.3 Anion Gap 8 Estimat Glomerular Filtration Rate 131 Total Creatine Kinase 66 Troponin I LESS THAN 0.02 B-Type Natriuretic Peptide 58 Urine Color LIGHT-YELLOW Urine Turbidity CLEAR Urine pH 7.5 Urine Specific [place] 1.040 Urine Protein NEG Urine Glucose (UA) NEG Urine Ketones 10 Urine Occult Blood NEG Urine Nitrite NEG Urine Bilirubin NEG Urine Urobilinogen LESS THAN 2.0 Urine Leukocyte Esterase MOD Urine RBC 1 Urine WBC 5 Urine Squamous Epithelial Cells 1 Urine Bacteria RARE Microscopic Urinalysis Comment CULT NOT INDICATED Serum Osmolality 268 Result Diagram: 08/07/17 0547 08/07/[address] reviewed Assessment and Plan Assessment and Plan 52 year old female large left laryngeal tumor. Airway obstruction. Was able to review with patient and her daughter. 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 She is about to have her airway secured. Ageree with trach, she is not stable, she will need it for her biopsy, she will need it to maintain her airway during treatment. Discussed risks and benefits and will plan a Micro Laryngoscopy and Biopsy for Saturday. Needs Medical Oncology and Radiation Oncology evaluation. Romeo Shay MD Aug 07, 2017 10:55
[2017-08-07] MEDS ORDERED: RESP: RACEPINEPHRINE 2.25% 0.5 ML NEB ONE (10:59)
[2017-08-07] MEDS ORDERED: KETAMINE HCL 500 MG/5 ML VIAL IV PUSH ONE (11:00)
[2017-08-07] MEDS ORDERED: SUCCINYLCHOLINE CHLORIDE 200 MG/10 ML VIAL ONE (11:02)
[2017-08-07] MEDS ORDERED: PROPOFOL 500 MG/50 ML INJ 50 ML ONE (11:14)
--- NOTE | 2017-08-07 11:38 | PD.PROCEDR ---
Procedure Note Procedure Moderate Sedation Diagnosis: Laryngeal mass Indications: Laryngeal mass with airway obstruction. Need for urgent awake/ spontaneously breathing tracheostomy Consent: Verbal consent was obtained from the patient and her daughter. Due to the emergent nature of the procedure, written consent was not obtained Planned Procedure: Urgent percutaneous dilation tracheostomy Airway Exam: Oropharyngeal class II airway, normal flexion, normal extension, edentulous. Normal thyroid mental distance. Mobile anterior neck. Noted inspiratory and expiratory stridor. CT neck reviewed which demonstrated rightward deviation of the larynx with narrowing at the level just above the true vocal cords. Sedation plan: Moderate sedation with ketamine and midazolam Total sedation time: 23 minutes Please see sedation record scanned into medical record. The patient's past medical history, allergies, medications, and prior airway records were reviewed. A time-out procedure was performed. The patient underwent the above planned procedure and tolerated it well. They remained hemodynamically stable throughout. At the conclusion of the case, the patient was back to neurologic baseline and their care was turned over to the bedside RN. No immediate complications noted. I personally performed the sedation. Santi Mesa MD Aug 07, 2017 11:38
[2017-08-07] MEDS ORDERED: fentaNYL DRIP 250 ML IV PRN (11:45)
[2017-08-07] MEDS ORDERED: PROPOFOL 1000 MG/100 ML INJ 100 ML IV PRN (11:45)
--- NOTE | 2017-08-07 11:51 | PD.PROCEDR ---
Procedure Note Procedure DX: Airway obstruction, laryngeal mass OP: Percutaneous Tracheostomy ([id number]) Procedure: Consent and time out. Anesthetic by bag mask and supplementation. Patient large breathing spontaneously. Anterior neck prepped and draped. Skin above sternal notch infiltrated with 1% lidocaine with epinephrine. Two cm vertical incision centered above the sternal notch. Needle passed into trachea by palpation. Unable to visualize from above due to large mass. Wire passed to connor. Dilators passed then 8 mm Shiley cuffed trach tube delivered into main trachea over dilator. Position confirmed with EtCO2. Flange sutured to skin. Ties applied around neck. Sats maintained over 95% throughout procedure. Jesus Magana MD Aug 07, 2017 11:51
[2017-08-07] MEDS ORDERED: DEXAMETHASONE SOD PHOS 4 MG/ML VIAL IV PUSH SCH (12:00)
--- NOTE | 2017-08-07 13:14 | RADRPT ---
EXAM DATE/TIME: 08/07/2017 12:39 [facility] COMPARISON: CHEST SINGLE AP, August 07, 2017, 5:38. INDICATIONS : Post tracheostomy. MEDICAL HISTORY : Chronic obstructive pulmonary disease. Hypertension. SURGICAL HISTORY : None. ENCOUNTER: Initial ACUITY: 1 day PAIN SCORE: Non-responsive. LOCATION: Bilateral chest FINDINGS: Tracheostomy is present in good position. Nasogastric tube descends into the stomach. There is no todd dence of pneumothorax or other complication of tracheostomy. There is slight parenchymal opacity at t he left lung base which may reflect developing infiltrate. Cardiac contours are grossly unchanged. CONCLUSION: Satisfactory tracheostomy placement. Possible mild developing infiltrate in the left base. Renato Candelaria MD on August 07, 2017 at 13:12 Board Certified Radiologist. This report was verified electronically.
[2017-08-07 14:50] LABS: HEPATITIS A AB IGM NEGATIVE (NEGATIVE); HEPATITIS B CORE AB IGM NEGATIVE (NEGATIVE)
--- NOTE | 2017-08-07 19:02 | MB ---
cc: ALMA VELASQUEZ M.D. DATE OF CONSULTATION: 08/07/2017. REASON FOR CONSULTATION: Oncology was consulted to render opinion regarding a patient with head and neck cancer. REFERRING PHYSICIAN: Dr. Shay. HISTORY OF PRESENT ILLNESS: The patient is 52-year-old female with extensive history of tobacco and alcohol use who presented to the hospital with complaint of worsening dysphagia and shortness of breath. When I saw the patient, she was sedated on the ventilator. History was obtained from her daughter and son at bedside. Apparently the patient has been developing hoarseness for more than two months. She also complained of dysphagia. She has been getting progressively short of breath according to the patient's daughter. The patient was having stridor and she also had been having cough bringing up some whitish sputum. She has lost about 15 pounds. She was drinking alcohol until about four days ago. She has no complaints of fever or chills. She has no nausea, vomiting, abdominal pain. No complaint of urinary symptoms. When she presented to the hospital, a CT showed a mass in the larynx obstructing the airway. She had tracheostomy placement. PAST MEDICAL HISTORY: 1. Borderline diabetes not on any medication. 2. Chronic obstructive pulmonary disease, not previously diagnosed. 3. Hypertension. PAST SURGICAL HISTORY: 1. Bilateral tubal ligation. FAMILY HISTORY: The mother had some sort of cancer. She has seven siblings; however, they have no contact. She has two daughters and a son, all healthy. SOCIAL HISTORY: She smokes 1-1/2 packs a day for at least thirty years. She drinks beer and hard liquor for many years. The son stated that the patient would be drunk in the morning. ALLERGIES: NO KNOWN DRUG ALLERGIES. CURRENT MEDICATIONS: Pepcid. REVIEW OF SYSTEMS: CONSTITUTIONAL: As above. EYES: Negative. ENT: As above. CARDIOVASCULAR: No reported chest pressure or palpitations. RESPIRATORY: As above. GI: Negative. : Negative. MUSCULOSKELETAL: Negative. HEMATOLOGIC: Negative. ENDOCRINE: Negative. DERMATOLOGIC: Negative. PSYCHIATRIC: Negative. NEUROLOGIC: Negative. PHYSICAL EXAMINATION: VITAL SIGNS: Temperature 97.8, blood pressure 129/84. GENERAL: She is sedated on a ventilator. HEAD, EYES, EARS, NOSE, THROAT: Atraumatic, normocephalic. Pupils equal, round, reactive to light. Oropharynx has dry mucosa. NECK: Tracheostomy noted. LYMPHATIC: I could not palpate any axillary adenopathy. CARDIOVASCULAR: Regular S1 and S2. No murmur. LUNGS: Clear to auscultation anteriorly. ABDOMEN: Abdomen soft and nontender. I could not palpate liver or spleen. EXTREMITIES: No cyanosis or clubbing or edema. SKIN: No rash or petechiae. NEUROLOGIC EXAM: Sedated. LABORATORY DATA: Dated August 07, 2017 reviewed. ASSESSMENT: 1. Laryngeal mass. She has a long history of tobacco and alcohol use. She started having dysphonia about two months ago. She developed progressive dysphagia and shortness of breath. 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 There was a small left cervical chain lymph node, which could be reactive, but cannot rule out metastatic disease. The mass has obstructed the airway and the patient had emergent tracheostomy placement today. She has been evaluated Dr. Shay and Dr. Shay is going to take the patient to the operating room for examination under anesthesia and biopsy on Saturday. I had an extensive discussion with the patient's daughter and son. 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 I would recommend getting a PET/CT scan outpatient for staging. If she has localize disease, primary treatment will be concurrent chemotherapy and radiation. She is awaiting evaluation by radiation oncology. I told them that the patient will need port placement. Given that she has dysphagia she will likely need PEG tube placement also. I will discuss this with the patient once she comes off sedation. 2. History of alcohol and tobacco abuse. She had drank heavily until four days ago. Possibly she could go into withdrawal. 3. Chronic obstructive pulmonary disease. She was still smoking although her children said that she tried to cut back. 4. Hypertension. 5. Erythrocytosis, which I think is likely due to underlying chronic obstructive pulmonary disease and tobacco use. She possibly also has hemoconcentration due to dehydration. Continue to monitor for now. 6. Elevated liver enzymes likely due to alcohol abuse. She was drinking up to about four days ago. Hepatitis screen was negative. RECOMMENDATIONS: 1. Extensive discussion with the patient's children. 2. Await ENT exam and biopsy. 3. The patient is likely going to need port placement and PEG tube placement. 4. She will need outpatient PET/CT scan. 5. Await radiation oncology consultation. Thank you, Dr. Shay, for asking me to see this patient. MD AMADA Ram/KITA /4:53 PM /6:46 PM GUILLERMO
[2017-08-07] MEDS: CHLORHEXIDINE 0.12% (ORAL KIT) 15 ML CUP MT SCH (20:00)
[2017-08-07] MEDS: FAMOTIDINE 20 MG/2 ML VIAL IV PUSH SCH (21:18)
[2017-08-08] VITALS (19 sets, daily range): BP systolic 96–126; BP diastolic 71–93; PULSE 70–102; RESP 12–22; TEMP 97.9–98.7; O2SAT 96–100
[2017-08-08] MEDS: CHLORHEXIDINE GLUCONATE 2 % 1 PACK (2 CLOTHS) TOP SCH (02:42)
--- NOTE | 2017-08-08 06:41 | HHI.PR ---
Subjective Remarks Airway secured yesterday in ICU. Scheduled for laryngoscopy and biopsy tomorrow. Objective Vital Signs Date Time Temp Pulse Resp B/P (MAP) Pulse Ox O2 Delivery O2 Flow Rate FiO2 08/08/17 06:00 75 08/08/17 05:03 99 40 08/08/17 04:00 98.7 76 12 96/71 (79) 100 08/08/17 04:00 76 08/08/17 04:00 40 08/08/17 02:00 92 08/08/17 00:23 100 40 08/08/17 00:00 40 08/08/17 00:00 93 08/08/17 00:00 98.2 90 12 100/73 (82) 96 08/07/17 22:00 96 08/07/17 21:45 97 40 08/07/17 20:00 96 08/07/17 20:00 98.8 130 22 133/89 (104) 100 08/07/17 20:00 40 08/07/17 19:00 100 Mechanical Ventilator 40 08/07/17 18:00 108 08/07/17 16:13 100 40 08/07/17 16:00 98.1 102 16 118/87 (97) 100 08/07/17 16:00 60 08/07/17 16:00 102 08/07/17 14:07 100 40 08/07/17 14:00 104 08/07/17 12:00 112 08/07/17 12:00 97.9 112 26 126/90 (102) 99 08/07/17 11:35 100 100 08/07/17 11:30 60 08/07/17 11:01 100 15.00 08/07/17 10:00 108 08/07/17 10:00 97.8 108 21 132/93 (106) 95 08/07/17 09:35 97.8 102 22 129/84 (99) 97 08/07/17 07:10 98.1 95 22 142/99 (113) 96 Room Air 08/07/17 07:10 96 Room Air 08/07/17 07:10 118 22 96 Room Air 08/07/17 07:10 22 96 Room Air I/O 08/07/17 08/07/17 08/07/17 08/08/17 08/08/17 08/08/17 07:00 15:00 23:00 07:00 15:00 23:00 Intake Total 1150 ml 0 ml Output Total 10 ml 500 ml Balance 1150 ml -10 ml -500 ml Intake Oral 0 ml IV Total 1150 ml Output Urine Total 500 ml Stool Total 0 ml Gastric Drainage Total 10 ml Result Diagram: 08/07/17 0547 08/07/17 0547 Assessment and Plan Assessment and Plan 52 year old female large left laryngeal tumor. Airway obstruction. Successful tracheostomy. For laryngoscopy and biopsy tomorrow in OR. Romeo Shay MD Aug 08, 2017 06:41
[2017-08-08 06:44] LABS: PROTHROMBIN TIME - PATIENT 10.3 SEC (9.8-11.6)
[2017-08-08 07:17] LABS: BASOPHIL % 0.4 % (0.0-2.0); EOSINOPHIL % 0.2 % (0.0-4.0); HEMOGLOBIN 14.8 GM/DL (11.6-15.3); LYMPH % 19.7 % (9.0-44.0); LYMPHOCYTE # 1.4 TH/MM3 (1.0-4.8); MEAN CELL VOLUME 97.2 FL (80.0-100.0); MEAN CORPUSCULAR HEMOGLOBIN 34.2 PG (27.0-34.0); MEAN CORPUSCULAR HGB CONC 35.2 % (32.0-36.0); MEAN PLATELET VOLUME 8.3 FL (7.0-11.0); MONO % 10.4 % (0.0-8.0); MONOCYTE # 0.7 TH/MM3 (0-0.9); NEUT % 69.3 % (16.0-70.0); PLATELET COUNT 185 TH/MM3 (150-450); RED BLOOD COUNT 4.32 MIL/MM3 (4.00-5.30); RED CELL DISTRIBUTION WIDTH 12.8 % (11.6-17.2); WHITE BLOOD COUNT 7.2 TH/MM3 (4.0-11.0)
[2017-08-08] MEDS ORDERED: LORazepam 2 MG/ML VIAL IV PRN (07:30)
--- NOTE | 2017-08-08 07:31 | HHI.CCPN ---
Subjective Remarks/Hospital Course 52 y/o female , chronic smoker with history of alcohol abuse, who presented to ER with hoarseness, difficulty breathing. She says that it's been going on for a couple of months. Complaining of worsening difficult breathing and swallowing for the past two months. she's lost about 15 pounds over the past few weeks. Cough productive of whitish sputum with no report of fever or chills. she says that it seems that her hoarseness has been getting worse. 08/08: Tracheostomy yesterday emergently due to upper airway obstruction. Will lighten sedation today, place nicoderm patch, add ativan for withdrawal. Objective Vital Signs Date Time Temp Pulse Resp B/P (MAP) Pulse Ox O2 Delivery O2 Flow Rate FiO2 08/08/17 06:00 75 08/08/17 05:03 99 40 08/08/17 04:00 98.7 12 96/71 (79) 08/07/17 19:00 Mechanical Ventilator 08/07/17 11:01 15.00 Intake and Output 08/08/17 08/08/17 08/09/17 08:00 16:00 00:00 Intake Total 0 ml Output Total 500 ml Balance -500 ml Result Diagram: 08/08/17 0606 08/07/17 0547 Objective Remarks Head: Atraumatic. Neck: Fullness left lateral neck at cricoid level and above. Trach tube in place , clean, dry. Lungs: Clear, no wheezes or crackles. Comfortable on vent. Heart: NL S1S2, RRR. No JVD. Abdomen: Benign, soft. Nondistended. Extremities: Warm, well perfused. No edema. Neuro: Sedated, M/S grossly intact when awake. A/P Problem List: (1) Stridor ICD Code: R06.1 - Stridor Status: Acute (2) Laryngeal mass ICD Code: J38.7 - Other diseases of larynx Status: Acute (3) Acute airway obstruction ICD Code: J98.8 - Other specified respiratory disorders Assessment and Plan Plan: 1. ICU admission still, vent. 2. Bronchodilators. 3. HOB up 30. 4. Ativan for withdrawal. 5. Avoid chemical DVT px. 6. Pepcid. 7. Oncology evaluation. Overall impression: Critical airway now protected with tracheostomy. Jesus Magana MD Aug 08, 2017 07:31
[2017-08-08 07:35] LABS: ALBUMIN 2.7 GM/DL (3.4-5.0); ALKALINE PHOSPHATASE 89 U/L (45-117); ALT (GPT) 36 U/L (10-53); AST (GOT) 32 U/L (15-37); BICARBONATE 26.6 MEQ/L (21.0-32.0); BLOOD UREA NITROGEN 8 MG/DL (7-18); CALCIUM 8.6 MG/DL (8.5-10.1); CHLORIDE 100 MEQ/L (98-107); GLOMERULAR FILTRATION RATE 169 ML/MIN (>89); GLUCOSE,RANDOM 81 MG/DL (74-106); SODIUM (NA) 135 MEQ/L (136-145); TOTAL BILIRUBIN ADULT 0.7 MG/DL (0.2-1.0); TOTAL PROTEIN 5.6 GM/DL (6.4-8.2)
[2017-08-08] MEDS: CHLORHEXIDINE 0.12% (ORAL KIT) 15 ML CUP MT SCH ×2 (08:00→21:20)
[2017-08-08] MEDS: FAMOTIDINE 20 MG/2 ML VIAL IV PUSH SCH ×2 (08:06→20:44)
[2017-08-08] MEDS: SODIUM CHLOR 0.9% 1000 ML INJ 1,000 ML IV SCH ×2 (08:06→21:20)
[2017-08-08] MEDS: NICOTINE 21 MG/24 HR PATCH T-DERMAL SCH (08:06)
[2017-08-08] MEDS: REMOVE OLD PATCH T-DERMAL SCH (08:06)
--- NOTE | 2017-08-08 11:48 | PD.ONC.PN ---
Subjective Subjective Remarks Afebrile overnight. patient resting in bed. she reports she is hungry and wants to eat. the hunger is making her nauseated. ready to go for biopsy tomorrow. Objective Data Date Time Temp Pulse Resp B/P (MAP) Pulse Ox O2 Delivery O2 Flow Rate FiO2 08/08/17 08:25 100 40 08/08/17 08:15 40 08/08/17 07:00 100 Mechanical Ventilator 40 08/08/17 06:00 75 08/08/17 05:03 99 40 08/08/17 04:00 98.7 76 12 96/71 (79) 100 08/08/17 04:00 76 08/08/17 04:00 40 08/08/17 02:00 92 08/08/17 00:23 100 40 08/08/17 00:00 40 08/08/17 00:00 93 08/08/17 00:00 98.2 90 12 100/73 (82) 96 08/07/17 22:00 96 08/07/17 21:45 97 40 08/07/17 20:00 96 08/07/17 20:00 98.8 130 22 133/89 (104) 100 08/07/17 20:00 40 08/07/17 19:00 100 Mechanical Ventilator 40 08/07/17 18:00 108 08/07/17 16:13 100 40 08/07/17 16:00 98.1 102 16 118/87 (97) 100 08/07/17 16:00 60 08/07/17 16:00 102 08/07/17 14:07 100 40 08/07/17 14:00 104 08/07/17 12:00 112 08/07/17 12:00 97.9 112 26 126/90 (102) 99 08/07/17 11:35 100 100 08/08/17 08/08/17 08/08/17 07:00 15:00 23:00 Intake Total 0 ml Output Total 500 ml Balance -500 ml Result Diagram: 08/08/1760508/08/17605 Laboratory Results Laboratory Tests Test 08/07/17 13:10 08/08/17 06:06 08/08/17 06:09 Thyroid Stimulating Hormone 3rd Gen 0.352 uIU/ML Hepatitis A IgM Antibody NEGATIVE Hepatitis B Surface Antigen NEGATIVE Hepatitis B Core IgM Antibody NEGATIVE Hepatitis C Antibody NEGATIVE White Blood Count 7.2 TH/MM3 Red Blood Count 4.32 MIL/MM3 Hemoglobin 14.8 GM/DL Hematocrit 42.0 % Mean Corpuscular Volume 97.2 FL Mean Corpuscular Hemoglobin 34.2 PG Mean Corpuscular Hemoglobin Concent 35.2 % Red Cell Distribution Width 12.8 % Platelet Count 185 TH/MM3 Mean Platelet Volume 8.3 FL Neutrophils (%) (Auto) 69.3 % Lymphocytes (%) (Auto) 19.7 % Monocytes (%) (Auto) 10.4 % Eosinophils (%) (Auto) 0.2 % Basophils (%) (Auto) 0.4 % Neutrophils # (Auto) 5.0 TH/MM3 Lymphocytes # (Auto) 1.4 TH/MM3 Monocytes # (Auto) 0.7 TH/MM3 Eosinophils # (Auto) 0.0 TH/MM3 Basophils # (Auto) 0.0 TH/MM3 CBC Comment DIFF FINAL Differential Comment Blood Urea Nitrogen 8 MG/DL Creatinine 0.40 MG/DL Random Glucose 81 MG/DL Total Protein 5.6 GM/DL Albumin 2.7 GM/DL Calcium Level 8.6 MG/DL Alkaline Phosphatase 89 U/L Aspartate Amino Transf (AST/SGOT) 32 U/L Alanine Aminotransferase (ALT/SGPT) 36 U/L Total Bilirubin 0.7 MG/DL Sodium Level 135 MEQ/L Potassium Level 3.5 MEQ/L Chloride Level 100 MEQ/L Carbon Dioxide Level 26.6 MEQ/L Anion Gap 8 MEQ/L Estimat Glomerular Filtration Rate 169 ML/MIN Prothrombin Time 10.3 SEC Prothromb Time International Ratio 1.0 RATIO Activated Partial Thromboplast Time 24.0 SEC Administered Medications Medications (Trade) Dose Ordered Sig/Kali Route PRN Reason Start Time Stop Time Status Last Admin Dose Admin Sodium Chloride (NS Flush) 2 ml UNSCH PRN IVF FLUSH AFTER USING IV ACCESS 08/07/17 05:30 08/07/17 08:12 Sodium Chloride 1,000 ml @ 84 mls/hr [id number] IV 08/07/17 09:00 08/08/17 08:06 Famotidine (Pepcid Inj) 20 mg Q12HR IV PUSH 08/07/17 21:00 08/08/17 08:06 Miscellaneous Information 1 [id number] 08/07/17 09:15 08/07/17 09:15 Chlorhexidine Gluconate (Chlorhexidine 2% Cloth) 3 pack Taper DAILY@04 TOP 08/08/17 04:00 08/04/18 03:59 08/08/17 02:42 Chlorhexidine Gluconate (Peridex 0.12% Liq) 15 ml BID@08,20 MT 08/07/17 20:00 08/08/17 08:00 Propofol 100 ml @ 1.71 mls/hr TITRATE PRN IV SEDATION 08/07/17 11:45 08/07/17 14:00 Fentanyl Citrate 250 ml @ 5 mls/hr TITRATE PRN IV SEDATION 08/07/17 11:45 08/07/17 18:03 Nicotine (Habitrol 21 Mg Patch.24 Hr) 1 patch DAILY T-DERMAL 08/08/17 09:00 08/08/17 08:06 Objective Remarks GENERAL: middle aged female, lying in bed. SKIN: Warm and dry. HEAD: Normocephalic. EYES: No injection or drainage. NECK: Supple. trach in place CARDIOVASCULAR: Regular rate and rhythm RESPIRATORY: anterior zavala with occasional rhonchi GASTROINTESTINAL: Abdomen soft, non-tender, nondistended. EXTREMITIES: No cyanosis, or edema. MUSCULOSKELETAL: Adequate muscle tone. NEUROLOGICAL: awake and alert, able to move extremities. Assessment/Plan Problem List: (1) Laryngeal mass ICD Codes: J38.7 - Other diseases of larynx Status: Acute Plan: will obtain biopsy tomorrow. History: --started having dysphonia about two months ago. She developed progressive dysphagia and shortness of breath. 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 There was a small left cervical chain lymph node, which could be reactive, but cannot rule out metastatic disease. The mass has obstructed the airway and the patient had emergent tracheostomy placement today. She has been evaluated and Dr. Shay is going to take the patient to the operating room for examination under anesthesia and biopsy on Saturday. --will need outpatient PET scan. -- If she has localize disease, primary treatment will be concurrent chemotherapy and radiation. She is awaiting evaluation by radiation oncology. I told them that the patient will need port placement. Given that she has dysphagia she will likely need PEG tube placement also. Assessment 52y/o female with laryngeal mass. h/o tobacco and alcohol use. Borderline diabetes not on any medication. Chronic obstructive pulmonary disease, not previously diagnosed. Hypertension. Plan 1. biopsy in OR tomorrow. 2. will obtain port and PEG tube after biopsy results. Attending Statement The exam, history, and the medical decision-making described in the above note were completed with the assistance of the mid-level provider. I reviewed and agree with the findings presented. I attest that I had a [id number] encounter with the patient on the same day, and personally performed and documented my assessment and findings in the medical record. Denies any pain. Remains on vent. Await laryngoscopy and biopsy tomorrow. Await rad onc eval. Will need port and PEG placement after we have the pathology. Regi Pitts Aug 08, 2017 11:48 Artie Hayward MD Aug 08, 2017 15:04
[2017-08-08] MEDS: MORPHINE SULFATE 2 MG/ML INJ IV PUSH PRN (18:45)
[2017-08-09] VITALS (12 sets, daily range): BP systolic 118–155; BP diastolic 85–102; PULSE 82–102; RESP 13–24; TEMP 98.4–98.8; O2SAT 98–100
[2017-08-09] MEDS: CHLORHEXIDINE GLUCONATE 2 % 1 PACK (2 CLOTHS) TOP SCH (02:45)
[2017-08-09] MEDS: NICOTINE 21 MG/24 HR PATCH T-DERMAL SCH (08:44)
[2017-08-09] MEDS: FAMOTIDINE 20 MG/2 ML VIAL IV PUSH SCH ×2 (08:44→22:20)
[2017-08-09] MEDS: MORPHINE SULFATE 2 MG/ML INJ IV PUSH PRN ×4 (08:44→22:42)
[2017-08-09] MEDS: CHLORHEXIDINE 0.12% (ORAL KIT) 15 ML CUP MT SCH ×2 (08:45→22:20)
[2017-08-09] MEDS: SODIUM CHLOR 0.9% 1000 ML INJ 1,000 ML IV SCH ×2 (08:45→22:20)
[2017-08-09] MEDS: REMOVE OLD PATCH T-DERMAL SCH (08:45)
[2017-08-09] MEDS ORDERED: LIDOCAINE HCL 1% PF 5 ML SYRINGE OTHER ONE (12:00)
[2017-08-09] MEDS ORDERED: ePHEDrine/NS 25 MG/5 ML SYRINGE IV ONE (12:00)
[2017-08-09] MEDS ORDERED: PROPOFOL 200 MG/20 ML AMP IV ONE (12:00)
[2017-08-09] MEDS ORDERED: DO NOT ADM ANY ANTICOAGULANT DRUGS PRN (12:42)
--- NOTE | 2017-08-09 13:26 | MP ---
cc: JOSE EDUARDO BALDERAS M.D. DATE OF SURGERY 08/09/2017 INDICATIONS This is a 52-year-old female with a history of airway obstruction and CT evidence of a laryngeal tumor. Ruben presented and had an emergency tracheostomy on Saturday and is stabilized with her airway. She is now brought to the operating room for microlaryngoscopy and biopsy with suspicion of squamous cell carcinoma of the larynx. PREOPERATIVE DIAGNOSIS Hoarseness, laryngeal lesion. POSTOPERATIVE DIAGNOSIS Hoarseness, laryngeal lesion. PROCEDURE Microlaryngoscopy and biopsy. SUMMARY The patient was brought to the operating room and placed in supine position, successfully placed under general anesthesia and prepared in the usual fashion for this procedure. The oral cavity was palpated. There was no palpable lesion. The neck was without any significant palpable mass. The patient was examined with a laryngoscope with magnification. She showed evidence of a large left laryngeal tumor involving transglottic, supraglottic down through to the subglottic region and the left side at the aryepiglottic fold. Multiple biopsies were completed, endolaryngeal to the left side with mild bleeding. She was suctioned. Hemostasis was obtained. She tolerated the procedure well, was awakened and taken to Recovery in stable condition. MD JOSH Anderson/STEPHANIE /12:25 PM /1:06 PM
[2017-08-09 13:56] LABS: AUTOMATED NEUTROPHIL # 4.9 TH/MM3 (1.8-7.7); BASOPHIL % 0.4 % (0.0-2.0); EOSINOPHIL % 0.5 % (0.0-4.0); HEMOGLOBIN 14.6 GM/DL (11.6-15.3); LYMPHOCYTE # 0.9 TH/MM3 (1.0-4.8); MEAN CELL VOLUME 98.9 FL (80.0-100.0); MEAN CORPUSCULAR HEMOGLOBIN 34.4 PG (27.0-34.0); MEAN CORPUSCULAR HGB CONC 34.8 % (32.0-36.0); MEAN PLATELET VOLUME 8.1 FL (7.0-11.0); MONO % 9.7 % (0.0-8.0); MONOCYTE # 0.6 TH/MM3 (0-0.9); NEUT % 75.4 % (16.0-70.0); PLATELET COUNT 154 TH/MM3 (150-450); RED BLOOD COUNT 4.25 MIL/MM3 (4.00-5.30); RED CELL DISTRIBUTION WIDTH 13.1 % (11.6-17.2); WHITE BLOOD COUNT 6.5 TH/MM3 (4.0-11.0)
--- NOTE | 2017-08-09 13:57 | HHI.CCPN ---
Subjective Remarks/Hospital Course 52 y/o female , chronic smoker with history of alcohol abuse, who presented to ER with hoarseness, difficulty breathing. She says that it's been going on for a couple of months. Complaining of worsening difficult breathing and swallowing for the past two months. she's lost about 15 pounds over the past few weeks. Cough productive of whitish sputum with no report of fever or chills. she says that it seems that her hoarseness has been getting worse. 08/08: Tracheostomy yesterday emergently due to upper airway obstruction. Will lighten sedation today, place nicoderm patch, add ativan for withdrawal. 08/09: Laryngeal biopsy today. Possibly home in a.m. with office visits to Oncology for followup. Braething comfortably. Objective Vital Signs Date Time Temp Pulse Resp B/P (MAP) Pulse Ox O2 Delivery O2 Flow Rate FiO2 08/09/17 13:00 98.2 92 16 122/78 (93) 99 Trach Collar 6 08/09/17 08:32 28 Intake and Output 08/09/17 08/09/17 08/10/17 08:00 16:00 00:00 Intake Total 382 ml 1250 ml Output Total 200 ml 1 ml Balance 182 ml 1249 ml Result Diagram: 08/08/17 0608/08/17 0606 Objective Remarks Head: Atraumatic. Neck: Fullness left lateral neck at cricoid level and above. Trach tube in place , clean, dry. Lungs: Clear, no wheezes or crackles. Comfortable on vent. Heart: NL S1S2, RRR. No JVD. Abdomen: Benign, soft. Nondistended.BS active. Extremities: Warm, well perfused. No edema. Neuro: Sedated, M/S grossly intact when awake. A/P Problem List: (1) Stridor ICD Code: R06.1 - Stridor Status: Acute (2) Laryngeal mass ICD Code: J38.7 - Other diseases of larynx Status: Acute (3) Acute airway obstruction ICD Code: J98.8 - Other specified respiratory disorders Assessment and Plan Plan: 1. ICU admission. 2. Racemic epinephrine. 3. HOB up 30. 4. TFs started. Home with NG. 5. Avoid chemical DVT px. 6. Pepcid. 7. Emergent tracheostomy 08/07.. Overall impression: Critical airway. Now protected with tracheostomy. Laryngeal biopsy today. Jesus Magana MD Aug 09, 2017 13:57
[2017-08-09 14:33] LABS: CALCIUM 8.6 MG/DL (8.5-10.1); CREATININE 0.47 MG/DL (0.50-1.00)
--- NOTE | 2017-08-09 15:18 | PD.ONC.PN ---
Subjective Subjective Remarks Afebrile overnight. patient resting in bed. tolerated procedure in OR this AM. no complaints. wants to know when her biopsy results will return. Objective Data Date Time Temp Pulse Resp B/P (MAP) Pulse Ox O2 Delivery O2 Flow Rate FiO2 08/09/17 13:00 98.2 92 16 122/78 (93) 99 Trach Collar 6 08/09/17 12:45 93 15 112/75 (87) 98 Trach Collar 6 08/09/17 12:40 98.4 95 15 106/73 (84) 100 Trach Collar 8 08/09/17 11:35 89 16 154/98 (116) 100 08/09/17 11:30 97.8 95 18 157/102 (120) 100 08/09/17 11:30 100 Trach Collar 6 08/09/17 10:00 94 08/09/17 08:32 100 T-piece 5.00 28 08/09/17 08:00 94 08/09/17 08:00 98.6 102 24 155/102 (119) 99 08/09/17 07:00 100 Room Air 08/09/17 06:00 82 08/09/17 04:00 96 08/09/17 04:00 98.4 102 18 124/88 (100) 99 08/09/17 02:00 88 08/09/17 00:00 98.4 96 17 118/85 (96) 98 08/09/17 00:00 96 08/08/17 22:00 82 08/08/17 20:41 98 T-piece 28 08/08/17 20:00 98.5 102 22 126/93 (104) 97 08/08/17 20:00 102 08/08/17 19:00 100 T-Piece 28 Humidified 08/08/17 18:00 87 08/08/17 16:33 100 T-piece 28 08/08/17 16:12 100 35 08/08/17 16:12 28 35 08/08/17 16:00 40 08/08/17 16:00 98.2 85 22 116/85 (95) 100 08/08/17 16:00 85 08/09/17 08/09/17 08/09/17 07:00 15:00 23:00 Intake Total 382 ml 1250 ml Output Total 200 ml 1 ml Balance 182 ml 1249 ml Result Diagram: 08/09/17 1344 08/09/17 1344 Laboratory Results Laboratory Tests Test 08/09/17 13:44 White Blood Count 6.5 TH/MM3 Red Blood Count 4.25 MIL/MM3 Hemoglobin 14.6 GM/DL Hematocrit 42.0 % Mean Corpuscular Volume 98.9 FL Mean Corpuscular Hemoglobin 34.4 PG Mean Corpuscular Hemoglobin Concent 34.8 % Red Cell Distribution Width 13.1 % Platelet Count 154 TH/MM3 Mean Platelet Volume 8.1 FL Neutrophils (%) (Auto) 75.4 % Lymphocytes (%) (Auto) 14.0 % Monocytes (%) (Auto) 9.7 % Eosinophils (%) (Auto) 0.5 % Basophils (%) (Auto) 0.4 % Neutrophils # (Auto) 4.9 TH/MM3 Lymphocytes # (Auto) 0.9 TH/MM3 Monocytes # (Auto) 0.6 TH/MM3 Eosinophils # (Auto) 0.0 TH/MM3 Basophils # (Auto) 0.0 TH/MM3 CBC Comment DIFF FINAL Differential Comment Blood Urea Nitrogen 6 MG/DL Creatinine 0.47 MG/DL Random Glucose 85 MG/DL Calcium Level 8.6 MG/DL Sodium Level 137 MEQ/L Potassium Level 3.5 MEQ/L Chloride Level 100 MEQ/L Carbon Dioxide Level 30.0 MEQ/L Anion Gap 7 MEQ/L Estimat Glomerular Filtration Rate 140 ML/MIN Administered Medications Medications (Trade) Dose Ordered Sig/Kali Route PRN Reason Start Time Stop Time Status Last Admin Dose Admin Sodium Chloride (NS Flush) 2 ml UNSCH PRN IVF FLUSH AFTER USING IV ACCESS 08/07/17 05:30 08/07/17 08:12 Sodium Chloride 1,000 ml @ 84 mls/hr [id number] IV 08/07/17 09:00 08/09/17 08:45 Famotidine (Pepcid Inj) 20 mg Q12HR IV PUSH 08/07/17 21:00 08/09/17 08:44 Miscellaneous Information 1 Q361D XX 08/07/17 09:15 08/07/17 09:15 Chlorhexidine Gluconate (Chlorhexidine 2% Cloth) 3 pack Taper DAILY@04 TOP 08/08/17 04:00 08/04/18 03:59 08/08/17 02:42 Chlorhexidine Gluconate (Peridex 0.12% Liq) 15 ml BID@08,20 MT 08/07/17 20:00 08/09/17 08:45 Propofol 100 ml @ 1.71 mls/hr TITRATE PRN IV SEDATION 08/07/17 11:45 08/07/17 14:00 Fentanyl Citrate 250 ml @ 5 mls/hr TITRATE PRN IV SEDATION 08/07/17 11:45 08/07/17 18:03 Morphine Sulfate (Morphine Inj) 2 mg Q3H PRN IV PUSH pain 6-10 08/07/17 11:45 08/09/17 14:00 Nicotine (Habitrol 21 Mg Patch.24 Hr) 1 patch DAILY T-DERMAL 08/08/17 09:00 08/09/17 08:44 Miscellaneous Information 1 DAILY T-DERMAL 08/08/17 09:00 08/09/17 08:45 Objective Remarks GENERAL: middle aged female, supine in bed resting. SKIN: Warm and dry. HEAD: Normocephalic. EYES: No injection or drainage. NECK: Supple. trach in place CARDIOVASCULAR: Regular rate and rhythm RESPIRATORY: anterior zavala clear GASTROINTESTINAL: Abdomen soft, non-tender, nondistended. EXTREMITIES: No cyanosis, or edema. MUSCULOSKELETAL: Adequate muscle tone. NEUROLOGICAL: awake and alert, moving extremities. unable to speak d/t trach. Assessment/Plan Problem List: (1) Laryngeal mass ICD Codes: J38.7 - Other diseases of larynx Status: Acute Plan: s/p biopsy in OR today, await pathology History: --started having dysphonia about two months ago. She developed progressive dysphagia and shortness of breath. 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 There was a small left cervical chain lymph node, which could be reactive, but cannot rule out metastatic disease. The mass has obstructed the airway and the patient had emergent tracheostomy placement today. She has been evaluated and Dr. Shay is going to take the patient to the operating room for examination under anesthesia and biopsy on Saturday. --will need outpatient PET scan. -- If she has localize disease, primary treatment will be concurrent chemotherapy and radiation. She is awaiting evaluation by radiation oncology. I told them that the patient will need port placement. Given that she has dysphagia she will likely need PEG tube placement also. Assessment 52y/o female with laryngeal mass. h/o tobacco and alcohol use. Borderline diabetes not on any medication. Chronic obstructive pulmonary disease, not previously diagnosed. Hypertension. Plan 1. await pathology 2. supportive care Attending Statement The exam, history, and the medical decision-making described in the above note were completed with the assistance of the mid-level provider. I reviewed and agree with the findings presented. I attest that I had a [id number] encounter with the patient on the same day, and personally performed and documented my assessment and findings in the medical record. Denies neck pain. Await laryngoscopy and biopsy. Will need port placement and possible PEG tube placement if path confirms head and neck carcinoma. Continue supportive care. Regi Pitts Aug 09, 2017 15:18 Artie Hayward MD Aug 09, 2017 15:37
[2017-08-10] VITALS (13 sets, daily range): BP systolic 137–148; BP diastolic 92–110; PULSE 81–100; RESP 13–22; TEMP 98–98.7; O2SAT 98–100
[2017-08-10] MEDS: CHLORHEXIDINE GLUCONATE 2 % 1 PACK (2 CLOTHS) TOP SCH (02:36)
[2017-08-10] MEDS: MORPHINE SULFATE 2 MG/ML INJ IV PUSH PRN ×4 (04:28→19:57)
[2017-08-10] MEDS: CHLORHEXIDINE 0.12% (ORAL KIT) 15 ML CUP MT SCH ×2 (08:00→19:58)
[2017-08-10] MEDS: REMOVE OLD PATCH T-DERMAL SCH (09:00)
[2017-08-10] MEDS: FAMOTIDINE 20 MG/2 ML VIAL IV PUSH SCH ×2 (09:49→21:00)
[2017-08-10] MEDS: NICOTINE 21 MG/24 HR PATCH T-DERMAL SCH (09:49)
--- NOTE | 2017-08-10 12:25 | HHI.CCPN ---
Subjective Remarks/Hospital Course 52 y/o female , chronic smoker with history of alcohol abuse, who presented to ER with hoarseness, difficulty breathing. She says that it's been going on for a couple of months. Complaining of worsening difficult breathing and swallowing for the past two months. she's lost about 15 pounds over the past few weeks. Cough productive of whitish sputum with no report of fever or chills. she says that it seems that her hoarseness has been getting worse. 08/08: Tracheostomy yesterday emergently due to upper airway obstruction. Will lighten sedation today, place nicoderm patch, add ativan for withdrawal. 08/09: Laryngeal biopsy today. Possibly home with office visits to Oncology for followup. Breathing comfortably. 08/10: Breathing comfortably on T-piece.Will need PEG, then d/c for oncology followup. Objective Vital Signs Date Time Temp Pulse Resp B/P (MAP) Pulse Ox O2 Delivery O2 Flow Rate FiO2 08/10/17 10:00 83 08/10/17 08:25 100 T-piece 28 08/10/17 08:00 98.4 14 148/109 (122) 08/10/17 07:00 6.00 Intake and Output 08/10/17 08/10/17 08/11/17 08:00 16:00 00:00 Intake Total 622 ml Output Total 625 ml Balance -3 ml Result Diagram: 08/09/17 1344 08/09/17 1344 Objective Remarks Head: Atraumatic. Neck: Fullness left lateral neck. Trach tube in place, clean, dry. Lungs: Clear, no wheezes or crackles. Comfortable on vent. Heart: NL S1S2, RRR. No JVD. Abdomen: Benign, soft. Nondistended. BS active. No guarding. Extremities: Warm, well perfused. No edema. Neuro: M/S grossly intact. Interactive by hand gestures and writing. A/P Problem List: (1) Stridor ICD Code: R06.1 - Stridor Status: Acute (2) Laryngeal mass ICD Code: J38.7 - Other diseases of larynx Status: Acute (3) Acute airway obstruction ICD Code: J98.8 - Other specified respiratory disorders Assessment and Plan Plan: 1. Place PEG. 2. Remove NG after. 3. HOB up 30. 4. TFs started. Home with NG. 5. Chemical DVT px. 6. Pepcid. 7. Emergent tracheostomy 08/07.. 8. GI consult. Overall impression: Critical airway. Now protected with tracheostomy. Laryngeal biopsy result pending. PEG then home. Jesus Magana MD Aug 10, 2017 12:25
[2017-08-10] MEDS: SODIUM CHLOR 0.9% 1000 ML INJ 1,000 ML IV SCH ×2 (13:07→20:25)
[2017-08-10] MEDS: ALPRAZolam 0.25 MG TAB PO PRN (19:57)
[2017-08-10] MEDS: SODIUM CHLORIDE 0.9% FLUSH 10 ML FLUSH IVF PRN (19:58)
[2017-08-11] VITALS (12 sets, daily range): BP systolic 133–161; BP diastolic 61–116; PULSE 82–101; RESP 14–24; TEMP 98–98.8; O2SAT 96–100
[2017-08-11] MEDS: CHLORHEXIDINE GLUCONATE 2 % 1 PACK (2 CLOTHS) TOP SCH (04:00)
[2017-08-11] MEDS: CHLORHEXIDINE 0.12% (ORAL KIT) 15 ML CUP MT SCH ×2 (08:00→19:20)
[2017-08-11] MEDS: REMOVE OLD PATCH T-DERMAL SCH (08:12)
[2017-08-11] MEDS: FAMOTIDINE 20 MG/2 ML VIAL IV PUSH SCH ×2 (08:12→20:45)
[2017-08-11] MEDS: SODIUM CHLOR 0.9% 1000 ML INJ 1,000 ML IV SCH ×2 (08:12→20:15)
[2017-08-11] MEDS: ACETAMINOPHEN/HYDROcodone 325 MG/5 MG TAB PO PRN ×3 (08:13→19:20)
[2017-08-11] MEDS: NICOTINE 21 MG/24 HR PATCH T-DERMAL SCH (08:13)
--- NOTE | 2017-08-11 09:28 | PD.CONS ---
HPI History of Present Illness This is a 52 year old slammed female who is now in the intensive care setting with trach. She is awake alert oriented and writing notes on a board for conversation. Patient notes that she had hoarseness which worsened to the point that she had no voice difficulty breathing and difficulty swallowing. Patient shakes head yes to symptoms been going on for several months. Noted on the record she had had a 15 pound weight loss. Currently denies any symptoms of nausea vomiting diarrhea or constipation. Denies any abdominal pain. She states currently managed with NG tube with Glucerna at 45 cc an hour. Patient writes note stating increased amount of gas, but no actual bloating noted. Hepatitis profile is negative, liver enzymes within normal range. CT scan done on 221 shows soft tissue mass involving the left sinuses most consistent with a tumor. Direct visualization is recommended small left cervical chain nodes which may be reactive and emphysema. (Leatha Jarrett) PFSH Past Medical History According to the record questionable diabetes. Past Surgical History tubal ligation. (Leatha Jarrett) Coded Allergies: *MDRO Multi-Drug Resistant Organism (Verified Adverse Reaction, Unknown, ) MRSA (wound) - 11/07/15 Medications Administered Medications Medications (Trade) Dose Ordered Sig/Kali Route PRN Reason Start Time Stop Time Status Last Admin Dose Admin Sodium Chloride (NS Flush) 2 ml UNSCH PRN IVF FLUSH AFTER USING IV ACCESS 08/07/17 05:30 08/10/17 19:58 Sodium Chloride 1,000 ml @ 84 mls/hr [id number] IV 08/07/17 09:00 08/11/17 08:12 Famotidine (Pepcid Inj) 20 mg Q12HR IV PUSH 08/07/17 21:00 08/11/17 08:12 Miscellaneous Information 1 Q361D XX 08/07/17 09:15 08/07/17 09:15 Chlorhexidine Gluconate (Chlorhexidine 2% Cloth) 3 pack Taper DAILY@04 TOP 08/08/17 04:00 08/04/18 03:59 08/08/17 02:42 Chlorhexidine Gluconate (Peridex 0.12% Liq) 15 ml BID@08,20 MT 08/07/17 20:00 08/11/17 08:00 Propofol 100 ml @ 1.71 mls/hr TITRATE PRN IV SEDATION 08/07/17 11:45 08/07/17 14:00 Fentanyl Citrate 250 ml @ 5 mls/hr TITRATE PRN IV SEDATION 08/07/17 11:45 08/07/17 18:03 Morphine Sulfate (Morphine Inj) 2 mg Q3H PRN IV PUSH pain 6-10 08/07/17 11:45 08/10/17 19:57 Nicotine (Habitrol 21 Mg Patch.24 Hr) 1 patch DAILY T-DERMAL 08/08/17 09:00 08/11/17 08:13 Miscellaneous Information 1 DAILY T-DERMAL 08/08/17 09:00 08/11/17 08:12 Lorazepam (Ativan Inj) 1 mg Q6H PRN IV anxiety or agitation 08/08/17 07:30 08/10/17 14:30 Acetaminophen/ Hydrocodone Bitart ([place] 5-325 Mg) 1 tab Q4H PRN PO pain 5-10 08/10/17 18:15 08/11/17 08:13 Alprazolam (Xanax) 0.25 mg Q4H PRN PO anxiety 08/10/17 18:15 08/10/17 19:57 Family History cancer in mother. Social History Pack-a-day smoker, Alcohol couple of times a week Admits to marijuana use Patient is single, but does have children (Leatha Jarrett) Review of Systems Constitutional: COMPLAINS OF: Weight loss Respiratory: COMPLAINS OF: Shortness of breath Gastrointestinal: COMPLAINS OF: Difficulty Swallowing (Leatha Jarrett) GI Exam Vitals I&O Vital Signs Date Time Temp Pulse Resp B/P (MAP) Pulse Ox O2 Delivery O2 Flow Rate FiO2 08/11/17 07:00 98 Trach Collar 6.00 28 T-Piece Humidified 08/11/17 06:00 88 08/11/17 04:00 86 08/11/17 04:00 98.0 86 14 134/96 (109) 96 08/11/17 02:00 84 08/11/17 00:00 98.8 88 14 133/95 (108) 100 08/10/17 20:21 100 28 08/10/17 20:02 22 08/10/17 20:00 T-Piece 28 Humidified 08/10/17 20:00 98.4 100 22 146/110 (122) 08/10/17 18:00 97 08/10/17 18:00 97 08/10/17 16:00 98.0 97 16 145/106 (119) 08/10/17 16:00 94 08/10/17 14:00 87 08/10/17 12:00 98.0 87 18 137/94 (108) 100 08/10/17 12:00 87 08/10/17 10:00 83 I/O 08/10/17 08/10/17 08/10/17 08/11/17 08/11/17 08/11/17 07:00 15:00 23:00 07:00 15:00 23:00 Intake Total 622 ml 660 ml 1167 ml Output Total 625 ml 1100 ml 1250 ml Balance -3 ml -440 ml -83 ml Tube Feeding 622 ml 660 ml 1167 ml Output Urine Total 625 ml 1100 ml 1250 ml # Bowel Movements 0 Imaging Last Impressions Chest X-Ray 08/07/17 0528 Signed Impressions: Service Date/Time: Monday, August 07, 2017 05:38 - CONCLUSION: No acute disease. Walker Sharif MD Neck CT 08/07/17 0000 Signed Impressions: Service Date/Time: Monday, August 07, 2017 06:35 - CONCLUSION: 1. Soft tissue mass involving left performed sinuses and aryepiglottic folds most characteristic of a tumor. Direct visualization is recommended. 2. Small left cervical chain nodes which may be reactive. 3. Emphysema in the lung apices. Walker Sharif MD Laboratory Administered Medications Medications (Trade) Dose Ordered Sig/Kali Route PRN Reason Start Time Stop Time Status Last Admin Dose Admin Sodium Chloride (NS Flush) 2 ml UNSCH PRN IVF FLUSH AFTER USING IV ACCESS 08/07/17 05:30 08/10/17 19:58 Sodium Chloride 1,000 ml @ 84 mls/hr [id number] IV 08/07/17 09:00 08/11/17 08:12 Famotidine (Pepcid Inj) 20 mg Q12HR IV PUSH 08/07/17 21:00 08/11/17 08:12 Miscellaneous Information 1 Q361D XX 08/07/17 09:15 08/07/17 09:15 Chlorhexidine Gluconate (Chlorhexidine 2% Cloth) 3 pack Taper DAILY@04 TOP 08/08/17 04:00 08/04/18 03:59 08/08/17 02:42 Chlorhexidine Gluconate (Peridex 0.12% Liq) 15 ml BID@08,20 MT 08/07/17 20:00 08/11/17 08:00 Propofol 100 ml @ 1.71 mls/hr TITRATE PRN IV SEDATION 08/07/17 11:45 08/07/17 14:00 Fentanyl Citrate 250 ml @ 5 mls/hr TITRATE PRN IV SEDATION 08/07/17 11:45 08/07/17 18:03 Morphine Sulfate (Morphine Inj) 2 mg Q3H PRN IV PUSH pain 6-10 08/07/17 11:45 08/10/17 19:57 Nicotine (Habitrol 21 Mg Patch.24 Hr) 1 patch DAILY T-DERMAL 08/08/17 09:00 08/11/17 08:13 Miscellaneous Information 1 DAILY T-DERMAL 08/08/17 09:00 08/11/17 08:12 Lorazepam (Ativan Inj) 1 mg Q6H PRN IV anxiety or agitation 08/08/17 07:30 08/10/17 14:30 Acetaminophen/ Hydrocodone Bitart ([place] 5-325 Mg) 1 tab Q4H PRN PO pain 5-10 08/10/17 18:15 08/11/17 08:13 Alprazolam (Xanax) 0.25 mg Q4H PRN PO anxiety 08/10/17 18:15 08/10/17 19:57 Physical Examination HEENT: Pupils round and reactive to light; normocephalic; atraumatic; no jaundice. Trach, new for the past few days NECK: Neck is supple, no JVD, mild left lymphadenopathy. CHEST: Chest is clear without obvious rhonchi, mild diminished lower breath sounds CARDIAC: Regular rate and rhythm ABDOMEN: Soft, nondistended, nontender; no hepatosplenomegaly; bowel sounds are present in all four quadrants. N G-tube with Glucerna tube feeds at 45 cc an hour EXTREMITIES: No clubbing, cyanosis, or edema. SKIN: Normal; no rash; no jaundice. 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 Soft tissue mass, laryngeal area requiring tracheotomy for now. Needs visualization according to CT scan. Nutritional deficits and weight loss, 15 pounds over the past few months. Currently being managed with Glucerna tube feeds per NG tube tolerate and 45 cc an hour, positive for gas without bloating for now. PEG tube discussion is already in place. History of tobacco and EtOH abuse and marijuana use. Emphysema noted on CT scan. Plan Nutrition continue keep feeds for now, Glucerna EGD with PEG tube placement, possible tomorrow, time to be announced Ancef 2 g IV on-call 1 pre-EGD PPI IV Monitor for any acute bleeding Monitor labs Supportive care keep patient informed of her plan of care She was seen per myself and Dr. Hart, no written on his behalf (Leatha Jarrett) Plan Patient was seen and examined, agree with above-noted, plan for PEG tube tomorrow morning (Leticia Hart MD) Leatha Jarrett Aug 11, 2017 09:28 Leticia Hart MD Aug 11, 2017 16:49
--- NOTE | 2017-08-11 11:29 | HHI.PR ---
Subjective Remarks in no acute distress. denies pain. at times tachycardic. d/w the RN and no acute issues over night. Objective Vitals Vital Signs Date Time Temp Pulse Resp B/P (MAP) Pulse Ox O2 Delivery O2 Flow Rate FiO2 08/11/17 10:16 99 T-piece 28 08/11/17 10:00 92 08/11/17 09:15 20 08/11/17 08:00 98.4 100 24 159/111 (127) 98 08/11/17 08:00 101 08/11/17 07:00 98 Trach Collar 6.00 28 T-Piece Humidified 08/11/17 06:00 88 08/11/17 04:00 86 08/11/17 04:00 98.0 86 14 134/96 (109) 96 08/11/17 02:00 84 08/11/17 00:00 98.8 88 14 133/95 (108) 100 08/10/17 20:21 100 28 08/10/17 20:02 22 08/10/17 20:00 T-Piece 28 Humidified 08/10/17 20:00 98.4 100 22 146/110 (122) 08/10/17 18:00 97 08/10/17 18:00 97 08/10/17 16:00 98.0 97 16 145/106 (119) 08/10/17 16:00 94 08/10/17 14:00 87 08/10/17 12:00 98.0 87 18 137/94 (108) 100 08/10/17 12:00 87 I/O 08/10/17 08/10/17 08/10/17 08/11/17 08/11/17 08/11/17 07:00 15:00 23:00 07:00 15:00 23:00 Intake Total 622 ml 660 ml 1167 ml Output Total 625 ml 1100 ml 1250 ml Balance -3 ml -440 ml -83 ml Tube Feeding 622 ml 660 ml 1167 ml Output Urine Total 625 ml 1100 ml 1250 ml # Bowel Movements 0 Result Diagram: 08/09/17 1344 08/09/17 1344 Imaging Last Impressions Chest X-Ray 08/07/17 0574 Signed Impressions: Service Date/Time: Monday, August 07, 2017 05:38 - CONCLUSION: No acute disease. Walker Sharif MD Neck CT 08/07/17 0000 Signed Impressions: Service Date/Time: Monday, August 07, 2017 06:35 - CONCLUSION: 1. Soft tissue mass involving left performed sinuses and aryepiglottic folds most characteristic of a tumor. Direct visualization is recommended. 2. Small left cervical chain nodes which may be reactive. 3. Emphysema in the lung apices. Walker Sharif MD Objective Remarks GENERAL: This is a well-nourished, well-developed patient, in no apparent distress. Neck; trach in place. CARDIOVASCULAR: Regular rate and regular rhythm without murmurs, gallops, or rubs. RESPIRATORY: Clear to auscultation. Breath sounds equal bilaterally. No wheezes , rales, or rhonchi. GASTROINTESTINAL: Abdomen soft, non-tender, nondistended. Normal, active bowel sounds MUSCULOSKELETAL: Extremities without clubbing, cyanosis, or edema. NEURO: Alert & Oriented x4 to person, place, time, situation. Moves all ext x4 Procedures tracheostomy/ Microlaryngoscopy and biopsy. 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 IV ; Start 08/12/17 at 09:45 Chlorhexidine Gluconate (Chlorhexidine 2% Cloth) 3 pack UNSCH PRN TOP HYGIENIC CARE; Start 08/07/17 at 09:15 Chlorhexidine Gluconate (Peridex 0.12% Liq) 15 ml BID@08,20 MT Last administered on 08/11/17at 08:00; Start 08/07/17 at 20:00 Dexamethasone Sodium Phosphate (Decadron Inj) 6 mg Q6HR IV PUSH Last administered on 08/07/17at 12:00; Start 08/07/17 at 12:00; Stop 08/07/17 at 13:31 ; Status DC Famotidine (Pepcid Inj) 20 mg Q12HR IV PUSH Last administered on 08/11/17at 08: 12; Start 08/07/17 at 21:00 Fentanyl Citrate 250 ml @ 5 mls/hr TITRATE PRN IV SEDATION Last administered on 08/07/17at 18:03; Start 08/07/17 at 11:45 Fentanyl Citrate (fentaNYL INJ) 250 mcg ONCE ONCE IV PUSH Last administered on 08/07/17at 10:30; Start 08/07/17 at 10:30; Stop 08/07/17 at 10:31; Status DC Hydralazine HCl (Apresoline Inj) 10 mg ONCE ONCE IV PUSH Last administered on 08/07/17at 05:44; Start 08/07/17 at 05:45; Stop 08/07/17 at 05:46; Status DC Hydralazine HCl (Apresoline) 25 mg Q6H PRN PO SBP > 160, DBP > 90; Start at 18:15 Ketamine HCl (Ketalar Inj) 100 mg STAT ONCE IV PUSH Last administered on at 11:00; Start 08/07/17 at 11:00; Stop 08/07/17 at 11:01; Status DC Lidocaine HCl (Lidocaine Pf 4% Neb) 1 ml ONCE ONCE NEB Last administered on at 05:30; Start 08/07/17 at 05:30; Stop 08/07/17 at 05:31; Status DC Lorazepam (Ativan Inj) 1 mg Q6H PRN IV anxiety or agitation Last administered on 08/10/17at 14:30; Start 08/08/17 at 07:30 Midazolam HCl (Versed Inj) 10 mg ONCE ONCE IV PUSH Last administered on at 10:30; Start 08/07/17 at 10:30; Stop 08/07/17 at 10:31; Status DC Miscellaneous Information ALL NURSING DEPARTME... UNSCH PRN .XX SEE LABEL COMMENTS; Start 08/09/17 at 12:42; Stop 08/10/17 at 12:41; Status DC Morphine Sulfate (Morphine Inj) 2 mg Q1H PRN IV PUSH Pain 6-10; Start 08/10/17 at 18:15 Nicotine (Habitrol 21 Mg Patch.24 Hr) 1 patch DAILY T-DERMAL Last administered on 08/11/17 08:13; Start 08/08/17 at 09:00 Ondansetron HCl (Zofran Inj) 4 mg Q6H PRN IV PUSH NAUSEA OR VOMITING; Start at 09:15 Propofol 100 ml @ 1.71 mls/hr TITRATE PRN IV SEDATION Last administered on at 14:00; Start 08/07/17 at 11:45 Sodium Chloride 1,000 ml @ 84 mls/hr [id number] IV Last administered on at 08:12; Start 08/07/17 at 09:00 Sodium Chloride (NS Flush) 2 ml UNSCH PRN IVF FLUSH AFTER USING IV ACCESS Last administered on 08/10/17at 19:58; Start 08/07/17 at 05:30 A/P Problem List: (1) Acute airway obstruction ICD Code: J98.8 - Other specified respiratory disorders (2) Laryngeal mass ICD Code: J38.7 - Other diseases of larynx Status: Acute (3) Stridor ICD Code: R06.1 - Stridor Status: Acute Assessment and Plan A/P - laryngeal mass s/p tracheostomy and Microlaryngoscopy and biopsy. follow the biopsy. for PEG and port placement tomorrow. continue with Glucerna via NG tube for now. continue with trach care. oncology/ radiation oncology, ENT and GI following. -DVT prophylaxis- SCD's- pending the planned procedures. Discharge Planning for PEG and port placement tomorrow. not ready for discharge yet. Anuradha Jay MD Aug 11, 2017 11:28
--- NOTE | 2017-08-11 18:15 | RC ---
cc: JOSE EDUARDO BALDERAS,ALICE ANTHONY MD DATE OF SERVICE 08/08/2017 HISTORY Ms. Jorge is a 52-year-old female I am asked to see, currently inpatient. A neck mass, airway impingement. Had a tracheostomy. Scheduled for a biopsy tomorrow. Daughter present. We discussed potential role of definitive radiation therapy and chemo radiation potentially. We discussed potential surgical resection based on disease extent. She is scheduled for microlaryngoscopy and biopsy on Saturday which we recommend. I will schedule reevaluation in one week. Alice Grossman MD Radiation Oncologist RUY/MAXWELL /9:27 AM /6:06 PM
[2017-08-12] VITALS (7 sets, daily range): BP systolic 143–162; BP diastolic 93–102; PULSE 80–109; RESP 11–19; TEMP 98–98.9; O2SAT 97–100
[2017-08-12] MEDS: MORPHINE SULFATE 2 MG/ML INJ IV PUSH PRN ×5 (01:07→19:49)
[2017-08-12] MEDS: CHLORHEXIDINE GLUCONATE 2 % 1 PACK (2 CLOTHS) TOP SCH (04:00)
[2017-08-12] MEDS: ONDANSETRON HCL 4 MG/2 ML VIAL IV PUSH PRN ×2 (05:35→19:48)
[2017-08-12 06:13] LABS: AUTOMATED NEUTROPHIL # 3.1 TH/MM3 (1.8-7.7); EOSINOPHIL # 0.1 TH/MM3 (0-0.4); EOSINOPHIL % 2.7 % (0.0-4.0); HEMATOCRIT 44.3 % (35.0-46.0); HEMOGLOBIN 15.5 GM/DL (11.6-15.3); LYMPH % 17.3 % (9.0-44.0); LYMPHOCYTE # 0.8 TH/MM3 (1.0-4.8); MEAN CELL VOLUME 98.6 FL (80.0-100.0); MEAN CORPUSCULAR HEMOGLOBIN 34.6 PG (27.0-34.0); MEAN CORPUSCULAR HGB CONC 35.1 % (32.0-36.0); MEAN PLATELET VOLUME 8.8 FL (7.0-11.0); MONOCYTE # 0.7 TH/MM3 (0-0.9); PLATELET COUNT 199 TH/MM3 (150-450); RED BLOOD COUNT 4.49 MIL/MM3 (4.00-5.30); RED CELL DISTRIBUTION WIDTH 12.9 % (11.6-17.2); WHITE BLOOD COUNT 4.8 TH/MM3 (4.0-11.0)
[2017-08-12 06:43] LABS: BICARBONATE 30.4 MEQ/L (21.0-32.0); CALCIUM 8.3 MG/DL (8.5-10.1); CREATININE 0.28 MG/DL (0.50-1.00)
[2017-08-12] MEDS: CHLORHEXIDINE 0.12% (ORAL KIT) 15 ML CUP MT SCH ×2 (08:00→20:00)
[2017-08-12] MEDS: SODIUM CHLOR 0.9% 1000 ML INJ 1,000 ML IV SCH ×2 (08:10→20:05)
--- NOTE | 2017-08-12 08:10 | HHI.PR ---
Subjective Remarks in no acute distress. denies pain. no new complaints. overall had a good night. family at the bedside. Objective Vitals Vital Signs Date Time Temp Pulse Resp B/P (MAP) Pulse Ox O2 Delivery O2 Flow Rate FiO2 08/12/17 05:41 15 08/12/17 04:00 98.3 92 18 160/100 (120) 99 08/12/17 00:00 98.0 80 11 143/100 (114) 100 08/11/17 20:20 13 08/11/17 20:13 97 T-piece 28 08/11/17 20:00 98.2 90 18 149/61 (90) 99 08/11/17 19:15 90 08/11/17 19:00 99 Trach Collar 6.00 28 T-Piece Humidified 08/11/17 16:00 98.2 82 16 135/86 (102) 96 08/11/17 12:00 90 08/11/17 12:00 98.4 90 20 161/116 (131) 99 08/11/17 10:16 99 T-piece 28 08/11/17 10:00 92 I/O 08/11/17 08/11/17 08/11/17 08/12/17 08/12/17 08/12/17 07:00 15:00 23:00 07:00 15:00 23:00 Intake Total 1167 ml 655 ml 262 ml Output Total 1250 ml 1100 ml Balance -83 ml 655 ml -838 ml Tube Feeding 1167 ml 655 ml 262 ml Output Urine Total 1250 ml 1100 ml # Voids 3 Result Diagram: 08/12/17 0516 08/12/17 0516 Imaging Last Impressions Chest X-Ray 08/07/17 0528 Signed Impressions: Service Date/Time: Monday, August 07, 2017 05:38 - CONCLUSION: No acute disease. Walker Sharif MD Neck CT 08/07/17 0000 Signed Impressions: Service Date/Time: Monday, August 07, 2017 06:35 - CONCLUSION: 1. Soft tissue mass involving left performed sinuses and aryepiglottic folds most characteristic of a tumor. Direct visualization is recommended. 2. Small left cervical chain nodes which may be reactive. 3. Emphysema in the lung apices. Walker Sharif MD Objective Remarks GENERAL: This is a well-nourished, well-developed patient, in no apparent distress. Neck; trach in place. CARDIOVASCULAR: Regular rate and regular rhythm without murmurs, gallops, or rubs. RESPIRATORY: Clear to auscultation. Breath sounds equal bilaterally. No wheezes , rales, or rhonchi. GASTROINTESTINAL: Abdomen soft, non-tender, nondistended. Normal, active bowel sounds MUSCULOSKELETAL: Extremities without clubbing, cyanosis, or edema. NEURO: Alert & Oriented x4 to person, place, time, situation. Moves all ext x4 Procedures tracheostomy/ Microlaryngoscopy and biopsy. Medications and IVs Inpatient Medications Acetaminophen/ Hydrocodone Bitart ([place] 5-325 Mg) 1 tab Q4H PRN PO pain 5-10 Last administered on 08/11/17at 19:20; Start 08/10/17 at 18:15 Albuterol Sulfate (Albuterol Neb) 1.25 mg Q4HR NEB PRN NEB SHORTNESS OF BREATH ; Start 08/07/17 at 07:45 Albuterol/ Ipratropium (Duoneb Neb) 1 ampule Q2HR NEB PRN INH WHEEZING; Start 08/07/17 at 09:15 Alprazolam (Xanax) 0.25 mg Q4H PRN PO anxiety Last administered on 08/10/17at 19 :57; Start 08/10/17 at 18:15 Cefazolin Sodium/ Dextrose 50 ml @ 100 mls/hr SWITCH BOX INSTALLER IV ; Start 08/12/17 at 09:45 Chlorhexidine Gluconate (Chlorhexidine 2% Cloth) 3 pack UNSCH PRN TOP HYGIENIC CARE; Start 08/07/17 at 09:15 Chlorhexidine Gluconate (Peridex 0.12% Liq) 15 ml BID@08,20 MT Last administered on 08/11/17at 19:20; Start 08/07/17 at 20:00 Dexamethasone Sodium Phosphate (Decadron Inj) 6 mg Q6HR IV PUSH Last administered on 08/07/17at 12:00; Start 08/07/17 at 12:00; Stop 08/07/17 at 13:31 ; Status DC Famotidine (Pepcid Inj) 20 mg Q12HR IV PUSH Last administered on 08/11/17at 20: 45; Start 08/07/17 at 21:00 Fentanyl Citrate 250 ml @ 5 mls/hr TITRATE PRN IV SEDATION Last administered on 08/07/17at 18:03; Start 08/07/17 at 11:45 Fentanyl Citrate (fentaNYL INJ) 250 mcg ONCE ONCE IV PUSH Last administered on 08/07/17at 10:30; Start 08/07/17 at 10:30; Stop 08/07/17 at 10:31; Status DC Hydralazine HCl (Apresoline Inj) 10 mg ONCE ONCE IV PUSH Last administered on 08/07/17at 05:44; Start 08/07/17 at 05:45; Stop 08/07/17 at 05:46; Status DC Hydralazine HCl (Apresoline) 25 mg Q6H PRN PO SBP > 160, DBP > 90; Start at 18:15 Ketamine HCl (Ketalar Inj) 100 mg STAT ONCE IV PUSH Last administered on at 11:00; Start 08/07/17 at 11:00; Stop 08/07/17 at 11:01; Status DC Lidocaine HCl (Lidocaine Pf 4% Neb) 1 ml ONCE ONCE NEB Last administered on at 05:30; Start 08/07/17 at 05:30; Stop 08/07/17 at 05:31; Status DC Lorazepam (Ativan Inj) 1 mg Q6H PRN IV anxiety or agitation Last administered on 08/10/17at 14:30; Start 08/08/17 at 07:30 Midazolam HCl (Versed Inj) 10 mg ONCE ONCE IV PUSH Last administered on at 10:30; Start 08/07/17 at 10:30; Stop 08/07/17 at 10:31; Status DC Miscellaneous Information ALL NURSING DEPARTME... UNSCH PRN .XX SEE LABEL COMMENTS; Start 08/09/17 at 12:42; Stop 08/10/17 at 12:41; Status DC Morphine Sulfate (Morphine Inj) 2 mg Q1H PRN IV PUSH Pain 6-10; Start 08/10/17 at 18:15 Nicotine (Habitrol 21 Mg Patch.24 Hr) 1 patch DAILY T-DERMAL Last administered on 08/11/17at 08:13; Start 08/08/17 at 09:00 Ondansetron HCl (Zofran Inj) 4 mg Q6H PRN IV PUSH NAUSEA OR VOMITING Last administered on 08/12/17at 05:35; Start 08/07/17 at 09:15 Propofol 100 ml @ 1.71 mls/hr TITRATE PRN IV SEDATION Last administered on at 14:00; Start 08/07/17 at 11:45 Sodium Chloride 1,000 ml @ 84 mls/hr [id number] IV Last administered on at 20:15; Start 08/07/17 at 09:00 Sodium Chloride (NS Flush) 2 ml UNSCH PRN IVF FLUSH AFTER USING IV ACCESS Last administered on 08/10/17at 19:58; Start 08/07/17 at 05:30 A/P Problem List: (1) Acute airway obstruction ICD Code: J98.8 - Other specified respiratory disorders (2) Laryngeal mass ICD Code: J38.7 - Other diseases of larynx Status: Acute (3) Stridor ICD Code: R06.1 - Stridor Status: Acute Assessment and Plan A/P - laryngeal mass s/p tracheostomy and Microlaryngoscopy and biopsy. follow the pathology. for PEG and port placement today. on Glucerna via NG tube . continue with trach care. oncology/ radiation oncology, ENT and GI following. -DVT prophylaxis- SCD's- pending the planned procedures. -consult PT Discharge Planning for PEG and port placement today. not ready for discharge. case management for dc planning. Anuradha Jay MD Aug 12, 2017 08:10
[2017-08-12] MEDS: FAMOTIDINE 20 MG/2 ML VIAL IV PUSH SCH ×2 (08:59→19:48)
[2017-08-12] MEDS: NICOTINE 21 MG/24 HR PATCH T-DERMAL SCH (08:59)
[2017-08-12] MEDS: REMOVE OLD PATCH T-DERMAL SCH (08:59)
[2017-08-12] MEDS ORDERED: ceFAZolin 2 GM PREMIX 50 ML IV SCH ×2 (09:45→11:00)
[2017-08-12] MEDS ORDERED: VANCOMYCIN INJ 1,000 MG in SODIUM CHLOR 0.9% 250 ML INJ 250 ML IV SCH (11:00)
[2017-08-12] MEDS ORDERED: LIDOCAINE HCL 1% PF 5 ML SYRINGE OTHER ONE (12:00)
[2017-08-12] MEDS ORDERED: PROPOFOL 200 MG/20 ML AMP IV ONE (12:00)
[2017-08-12] MEDS ORDERED: MIDAZOLAM HCL 2 MG/2 ML VIAL ONE ×2 (12:14→12:46)
--- NOTE | 2017-08-12 13:24 | PD.RAD ---
Post Procedure Progress Note Pre Procedure Diagnosis: (1) Laryngeal mass Post Procedure Diagnosis: (1) Laryngeal mass Procedure Date: Aug 12, 2017 Supervising Radiologist: Renato Cadnelaria Proceduralist/Assist: RT Elizabeth(R) Estimated blood loss: 5ml Anesthesia: Local, Conscious Sedation Plan of Activity Patient to Unit: ROPU Patient Condition: Good See PACS Report for procedural detail/treatment Central Venous Access Device Procedure 1 Right Internal Jugular Infusaport Placement single lumen Cuban: 8 Renato Candelaria MD Aug 12, 2017 13:24
[2017-08-12] MEDS ORDERED: SODIUM CHLORIDE 0.9% FLUSH 10 ML FLUSH IVF PRN (13:30)
--- NOTE | 2017-08-12 13:46 | RADRPT ---
EXAM DATE/TIME: 08/12/2017 12:06 [facility] COMPARISON: No previous studies available for comparison. INDICATIONS : Patient with a history of laryngeal mass needs [id number]. MEDICAL HISTORY : ETOH HTN PAD Chronic lung disease Laryngeal mass Diabetes SURGICAL HISTORY : None. ENCOUNTER: Initial ACUITY: 1 week PAIN SCORE: 0/10 FLUORO TIME: 0.4 minutes IMAGE SERIES: 0 SEDATION TIME: 30 minutes ACCESS: Right internal jugular vein SEDATION: 1.) 3 mg midazolam (Versed) IV 2.) 150 mcg fentanyl (Sublimaze) IV Prophylactic antibiotics were administered with appropriate pre-procedure timing. Vancomycin within 2 hours of procedure, Ancef (or alternative) within 1 hour of procedure. DEVICE: 1. 8 Arabic single lumen [id number] PROCEDURE : 1. Continuous pulse oximetry and EKG monitoring. 2. Intravenous conscious sedation. 3. Ultrasound guidance for venous access. 4. Fluoroscopic guided implantable central venous port placement. The patient was placed supine. The neck was prepped in sterile fashion. Full sterile technique was u sed, including cap, mask, sterile gloves and gown, and a large sterile sheet. Hand hygiene and 2% ch lorhexidine Betadine was utilized per protocol for cutaneous antisepsis with appropriate dry time for site. Sterile gel and sterile probe cover were utilized for ultrasound guidance. The skin and sub cutaneous tissues were infiltrated with local anesthetic solution. Under direct ultrasound guidance, central venous access was accomplished in the targeted vessel. The ultrasound images depicting access guidance were stored and saved to PACS for permanent record. A s ubcutaneous pocket was created using blunt dissection. The port was introduced to the pocket. The c atheter tubing was fed through a subcutaneous tunnel to the venotomy site. The catheter tubing was c ut to a suitable length and then was introduced through a valved Peel-Away sheath and positioned with catheter tubing tip at the cavo-atrial junction level. The pocket incision was closed with subcutic ular Vicryl suture. Steri-Strips were applied. The port was flushed and locked with heparin solutio n per protocol. Sterile dressing was applied to the site. The patient tolerated the procedure well. Conscious sedation was performed with the prescribed dosages and duration as above in the presence of an independent trained radiology nurse to assist in the monitoring of the patient. EKG and oximetry remained stable throughout the procedure. The patient tolerated the procedure well and there were no complications. The patient was sent to post anesthesia recovery in stable condition. CONCLUSION: Uncomplicated ultrasound and fluoroscopic guided implanted central venous port catheter placement as described in detail above. An 8 Arabic Power port was placed. Renato Candelaria MD on August 12, 2017 at 13:44 Board Certified Radiologist. This report was verified electronically.
--- NOTE | 2017-08-12 15:19 | PD.PROCEDR ---
GI Procedure PROCEDURE PERFORMED Upper endoscopy with gastrostomy tube placement INDICATION FOR PROCEDURE Dysphagia patient has trach PROCEDURE: The procedure, risks and benefits were discussed with Ms. Jorge and informed consent was obtained. Anesthesia sedated her with Diprivan. She was placed in the left lateral decubitus position. EGD: The Pentax videoscope was introduced through the oropharynx and advanced to the second portion of the duodenum under direct visualization. Retroflexion was performed in the stomach. The area for PEG tube was identified by illumination and indentation, sterilized with Betadine, injected with lidocaine, a catheter was advanced through the abdominal wall with retrieval of guidewire and then 20 [place] Microvasive PEG tube placement with a pull technique without any difficulty, after that verification of the PEG tube was done with a visualization by scope FINDINGS: Normal exam PEG tube was placed as above ESTIMATED BLOOD LOSS: None SPECIMENS REMOVED: None COMPLICATIONS: None IMPRESSION: Normal exam PEG tube was placed Antibiotic was given earlier PLAN: Nothing by mouth for 6 hours if site okay may use PEG tube Leticia Hart MD Aug 12, 2017 15:19
--- NOTE | 2017-08-12 15:20 | HHI.GIFU ---
Subjective Remarks Patient is laying in bed comfortably with a trach, no new complain, ready to have the PEG tube placed Objective Vitals I&O Vital Signs Date Time Temp Pulse Resp B/P (MAP) Pulse Ox O2 Delivery O2 Flow Rate FiO2 08/12/17 12:00 08/12/17 09:01 97 T-piece 4.00 98 08/12/17 08:00 88 08/12/17 08:00 98.8 88 14 151/93 (112) 98 08/12/17 07:00 98 Trach Collar 6.00 28 T-Piece Humidified 08/12/17 05:41 15 08/12/17 04:00 98.3 92 18 160/100 (120) 99 08/12/17 00:00 98.0 80 11 143/100 (114) 100 08/11/17 20:20 13 08/11/17 20:13 97 T-piece 28 08/11/17 20:00 98.2 90 18 149/61 (90) 99 08/11/17 19:15 90 08/11/17 19:00 99 Trach Collar 6.00 28 T-Piece Humidified 08/11/17 16:00 98.2 82 16 135/86 (102) 96 I/O 08/11/17 08/11/17 08/11/17 08/12/17 08/12/17 08/12/17 07:00 15:00 23:00 07:00 15:00 23:00 Intake Total 1167 ml 655 ml 262 ml 300 ml Output Total 1250 ml 1100 ml Balance -83 ml 655 ml -838 ml 300 ml IV Total 300 ml Tube Feeding 1167 ml 655 ml 262 ml Output Urine Total 1250 ml 1100 ml # Voids 3 Laboratory Laboratory Tests Test 08/12/17 05:16 White Blood Count 4.8 Red Blood Count 4.49 Hemoglobin 15.5 Hematocrit 44.3 Mean Corpuscular Volume 98.6 Mean Corpuscular Hemoglobin 34.6 Mean Corpuscular Hemoglobin Concent 35.1 Red Cell Distribution Width 12.9 Platelet Count 199 Mean Platelet Volume 8.8 Neutrophils (%) (Auto) 65.0 Lymphocytes (%) (Auto) 17.3 Monocytes (%) (Auto) 14.0 Eosinophils (%) (Auto) 2.7 Basophils (%) (Auto) 1.0 Neutrophils # (Auto) 3.1 Lymphocytes # (Auto) 0.8 Monocytes # (Auto) 0.7 Eosinophils # (Auto) 0.1 Basophils # (Auto) 0.0 CBC Comment DIFF FINAL Differential Comment Blood Urea Nitrogen 7 Creatinine 0.28 Random Glucose 86 Calcium Level 8.3 Sodium Level 136 Potassium Level 3.9 Chloride Level 100 Carbon Dioxide Level 30.4 Anion Gap 6 Estimat Glomerular Filtration Rate 255 Physical Exam HEENT: Pupils round and reactive to light; normocephalic; atraumatic; no jaundice. Throat is clear. NECK: Neck is supple, no JVD, no lymphadenopathy. Trach in place CHEST: Chest is clear to auscultation and percussion. CARDIAC: Regular rate and rhythm with no murmur gallop or rubs. ABDOMEN: Soft, nondistended, nontender; no hepatosplenomegaly; bowel sounds are present in all four quadrants. EXTREMITIES: No clubbing, cyanosis, or edema. SKIN: Normal; no rash; no jaundice. SUPERVISOR BLOOMING MILL: No focal deficits; alert and oriented times three. Assessment and Plan Plan Patient was seen and examined, tube with upper endoscopy was placed IMPRESSION: Normal exam PEG tube was placed Antibiotic was given earlier PLAN: Nothing by mouth for 6 hours if site okay may use PEG tube Leticia Hart MD Aug 12, 2017 15:20
--- NOTE | 2017-08-12 17:16 | PD.ONC.PN ---
Subjective Subjective Remarks Afebrile overnight Pt indicates she has some soreness where her PEG tube was placed, as well as the infusaport. No bleeding Daughter in room anxious to know biopsy results. Objective Data Date Time Temp Pulse Resp B/P (MAP) Pulse Ox O2 Delivery O2 Flow Rate FiO2 08/12/17 12:00 08/12/17 09:01 97 T-piece 4.00 98 08/12/17 08:00 88 08/12/17 08:00 98.8 88 14 151/93 (112) 98 08/12/17 07:00 98 Trach Collar 6.00 28 T-Piece Humidified 08/12/17 05:41 15 08/12/17 04:00 98.3 92 18 160/100 (120) 99 08/12/17 00:00 98.0 80 11 143/100 (114) 100 08/11/17 20:20 13 08/11/17 20:13 97 T-piece 28 08/11/17 20:00 98.2 90 18 149/61 (90) 99 08/11/17 19:15 90 08/11/17 19:00 99 Trach Collar 6.00 28 T-Piece Humidified 08/12/17 08/12/17 08/12/17 07:00 15:00 23:00 Intake Total 262 ml 350 ml Output Total 1100 ml Balance -838 ml 350 ml Result Diagram: 08/12/17 0516 08/12/17 0516 Laboratory Results Laboratory Tests Test 08/12/17 05:16 White Blood Count 4.8 TH/MM3 Red Blood Count 4.49 MIL/MM3 Hemoglobin 15.5 GM/DL Hematocrit 44.3 % Mean Corpuscular Volume 98.6 FL Mean Corpuscular Hemoglobin 34.6 PG Mean Corpuscular Hemoglobin Concent 35.1 % Red Cell Distribution Width 12.9 % Platelet Count 199 TH/MM3 Mean Platelet Volume 8.8 FL Neutrophils (%) (Auto) 65.0 % Lymphocytes (%) (Auto) 17.3 % Monocytes (%) (Auto) 14.0 % Eosinophils (%) (Auto) 2.7 % Basophils (%) (Auto) 1.0 % Neutrophils # (Auto) 3.1 TH/MM3 Lymphocytes # (Auto) 0.8 TH/MM3 Monocytes # (Auto) 0.7 TH/MM3 Eosinophils # (Auto) 0.1 TH/MM3 Basophils # (Auto) 0.0 TH/MM3 CBC Comment DIFF FINAL Differential Comment Blood Urea Nitrogen 7 MG/DL Creatinine 0.28 MG/DL Random Glucose 86 MG/DL Calcium Level 8.3 MG/DL Sodium Level 136 MEQ/L Potassium Level 3.9 MEQ/L Chloride Level 100 MEQ/L Carbon Dioxide Level 30.4 MEQ/L Anion Gap 6 MEQ/L Estimat Glomerular Filtration Rate 255 ML/MIN Administered Medications Medications (Trade) Dose Ordered Sig/Kali Route PRN Reason Start Time Stop Time Status Last Admin Dose Admin Sodium Chloride (NS Flush) 2 ml UNSCH PRN IVF FLUSH AFTER USING IV ACCESS 08/07/17 05:30 08/10/17 19:58 Sodium Chloride 1,000 ml @ 84 mls/hr [id number] IV 08/07/17 09:00 08/12/17 08:10 Famotidine (Pepcid Inj) 20 mg Q12HR IV PUSH 08/07/17 21:00 08/12/17 08:59 Ondansetron HCl (Zofran Inj) 4 mg Q6H PRN IV PUSH NAUSEA OR VOMITING 08/07/17 09:15 08/12/17 05:35 Miscellaneous Information 1 [id number] XX 08/07/17 09:15 08/07/17 09:15 Chlorhexidine Gluconate (Chlorhexidine 2% Cloth) 3 pack Taper DAILY@04 TOP 08/08/17 04:00 08/04/18 03:59 08/12/17 04:00 Chlorhexidine Gluconate (Peridex 0.12% Liq) 15 ml BID@08,20 MT 08/07/17 20:00 08/12/17 08:00 Propofol 100 ml @ 1.71 mls/hr TITRATE PRN IV SEDATION 08/07/17 11:45 08/07/17 14:00 Fentanyl Citrate 250 ml @ 5 mls/hr TITRATE PRN IV SEDATION 08/07/17 11:45 08/07/17 18:03 Morphine Sulfate (Morphine Inj) 2 mg Q3H PRN IV PUSH pain 6-10 08/07/17 11:45 08/12/17 09:31 Nicotine (Habitrol 21 Mg Patch.24 Hr) 1 patch DAILY T-DERMAL 08/08/17 09:00 08/12/17 08:59 Miscellaneous Information 1 DAILY T-DERMAL 08/08/17 09:00 08/12/17 08:59 Lorazepam (Ativan Inj) 1 mg Q6H PRN IV anxiety or agitation 08/08/17 07:30 08/10/17 14:30 Acetaminophen/ Hydrocodone Bitart ([place] 5-325 Mg) 1 tab Q4H PRN PO pain 5-10 08/10/17 18:15 08/11/17 19:20 Alprazolam (Xanax) 0.25 mg Q4H PRN PO anxiety 08/10/17 18:15 08/10/17 19:57 Vancomycin HCl 1000 mg/Sodium Chloride 250 ml @ 250 mls/hr PHOTOGRAPHIC SUPERVISOR IV 08/12/17 11:00 08/16/17 10:59 08/12/17 12:43 Cefazolin Sodium/ Dextrose 50 ml @ 100 mls/hr PHOTOGRAPHIC SUPERVISOR IV 08/12/17 11:00 08/16/17 10:59 08/12/17 11:31 Objective Remarks GENERAL: Middle aged female sitting on bedside commode in no obvious distress. SKIN: Warm and dry. Dressing covering L upper chest from infusaport placement earlier today HEAD: Normocephalic. EYES: No injection or drainage. NECK: Supple. trach in place CARDIOVASCULAR: Regular rate and rhythm RESPIRATORY: Scattered rhonchi anteriorly. GASTROINTESTINAL: Abdomen soft. New PEG tube placement. EXTREMITIES: No cyanosis, or edema. MUSCULOSKELETAL: Adequate muscle tone. NEUROLOGICAL: Awake and alert, moving extremities. Trach in place. Assessment/Plan Problem List: (1) Laryngeal mass ICD Codes: J38.7 - Other diseases of larynx Status: Acute Plan: s/p biopsy in [place] 08/09, await pathology History: --started having dysphonia about two months ago. She developed progressive dysphagia and shortness of breath. 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 There was a small left cervical chain lymph node, which could be reactive, but cannot rule out metastatic disease. The mass has obstructed the airway and the patient had emergent tracheostomy placement today. She has been evaluated and Dr. Shay is going to take the patient to the operating room for examination under anesthesia and biopsy on Saturday. --will need outpatient PET scan. -- If she has localize disease, primary treatment will be concurrent chemotherapy and radiation. She is awaiting evaluation by radiation oncology. I told them that the patient will need port placement. Given that she has dysphagia she will likely need PEG tube placement also. Assessment 52y/o female with laryngeal mass. h/o tobacco and alcohol use. Borderline diabetes not on any medication. Chronic obstructive pulmonary disease, not previously diagnosed. Hypertension. Plan 1. Await path 2. Supportive care. Attending Statement The exam, history, and the medical decision-making described in the above note were completed with the assistance of the mid-level provider. I reviewed and agree with the findings presented. I attest that I had a [id number] encounter with the patient on the same day, and personally performed and documented my assessment and findings in the medical record. Denies neck pain. No CP/SOB. Does not like the NGT. ENT exam showed laryngeal mass. Path pending. Await port placement and PEG tube placement. Continue supportive care. Amber Escobedo Aug 12, 2017 17:16 Artie Hayward MD Aug 12, 2017 19:55
[2017-08-12] MEDS: ACETAMINOPHEN/HYDROcodone 325 MG/5 MG TAB PO PRN (23:19)
[2017-08-13] VITALS (8 sets, daily range): BP systolic 119–169; BP diastolic 75–109; PULSE 70–96; RESP 18–20; TEMP 97.6–99.2; O2SAT 94–98
[2017-08-13] MEDS: CHLORHEXIDINE 0.12% (ORAL KIT) 15 ML CUP MT SCH ×2 (08:00→20:00)
[2017-08-13] MEDS: SODIUM CHLOR 0.9% 1000 ML INJ 1,000 ML IV SCH ×2 (08:32→22:14)
[2017-08-13] MEDS: REMOVE OLD PATCH T-DERMAL SCH (08:35)
[2017-08-13] MEDS: NICOTINE 21 MG/24 HR PATCH T-DERMAL SCH (08:35)
[2017-08-13] MEDS: FAMOTIDINE 20 MG/2 ML VIAL IV PUSH SCH ×2 (08:36→22:14)
[2017-08-13] MEDS ORDERED: IOHEXOL 350 MG/ML 10 ML VIAL (for RAD DIAG) IVCONTRAST ONE (10:06)
--- NOTE | 2017-08-13 10:36 | RADRPT ---
EXAM DATE/TIME: 08/13/2017 10:05 [facility] COMPARISON: CT SOFT TISSUE NECK W CONTRAST, August 07, 2017, 6:35. CHEST SINGLE AP, August 07, 2017, 12:39. INDICATIONS : Head and neck cancer. IV CONTRAST: 69 cc Omnipaque 350 (iohexol) IV RADIATION DOSE: 4.29 CTDIvol (mGy) MEDICAL HISTORY : Chronic obstructive pulmonary disease. Hypertension. SURGICAL HISTORY : None. ENCOUNTER: Initial ACUITY: 1 day PAIN SCALE: 0/10 LOCATION: chest TECHNIQUE: Volumetric scanning of the chest was performed. Using automated exposure control and adjustment of t he mA and/or kV according to patient size, radiation dose was kept as low as reasonably achievable to obtain optimal diagnostic quality images. DICOM format image data is available electronically for review and comparison. Follow-up recommendations for detected pulmonary nodules are based at a minimum on nodule size and pa tient risk factors according to Fleischner Society Guidelines. FINDINGS: LUNGS: There is no consolidation or pneumothorax. No concerning pulmonary nodule is visualized. There is mi ld to moderate centrilobular emphysema. Compressive atelectasis is present in both lower lobes adjace nt to the pleural effusions. PLEURA: There are small bilateral simple appearing pleural effusions with associated pleural thickening. MEDIASTINUM: The heart and great vessels demonstrate no acute abnormality. There is no mediastinal or hilar lymph adenopathy. AXILLAE: Within normal limits. No lymphadenopathy. SKELETAL: There are mild degenerative changes of the thoracic spine but no lytic or blastic lesion is seen. MISCELLANEOUS: There are 3 low density lesions in the liver measuring up to 4 cm. The 2 largest have density measure ments consistent with simple cysts. The smallest lesion measures 7 mm and is too small to characteriz e. There is scar at the right upper pole kidney. Tracheostomy is present and there is narrowing of th e airway superior to the tracheostomy. Additionally, there is a stranding of the peritracheal fat. CONCLUSION: 1. Small simple appearing bilateral pleural effusions with compressive atelectasis. 2. There is moderate emphysema. No pulmonary nodules are identified to suggest metastatic disease. 3. There is narrowing of the airway superior to the tracheostomy. Additionally, there is tracheal wal l thickening with mild abnormal soft tissue surrounding the trachea and the superior mediastinum. Renato Drew MD on August 13, 2017 at 10:28 Board Certified Radiologist. This report was verified electronically.
[2017-08-13] MEDS: ACETAMINOPHEN/HYDROcodone 325 MG/5 MG TAB PO PRN ×2 (10:42→17:51)
--- NOTE | 2017-08-13 12:48 | HHI.PR ---
Subjective Remarks The patient was resting comfortably in bed. She endorsed slight soreness around the PEG tube site. She said she had a little bit of mucus production. She was breathing well. She worked with physical therapy. She says she quit smoking 2 months ago and has a nicotine patch in place. Discussed with nursing. Objective Vitals Vital Signs Date Time Temp Pulse Resp B/P (MAP) Pulse Ox O2 Delivery O2 Flow Rate FiO2 08/13/17 12:01 97.6 76 20 144/104 (117) 95 08/13/17 08:44 100 Trach Collar 5.00 28 08/13/17 08:29 98.7 93 20 148/97 (114) 96 08/13/17 07:31 94 T-piece 28 08/13/17 04:00 98.5 86 18 119/75 (90) 98 08/13/17 02:00 T-Piece 28 08/13/17 00:00 98.3 91 18 131/84 (100) 95 08/12/17 20:30 100 T-piece 5.00 28 08/12/17 20:00 98.9 108 18 148/98 (115) 97 08/12/17 20:00 97 T-Piece 28 Humidified 08/12/17 20:00 108 08/12/17 20:00 98.0 109 18 155/102 (119) 97 08/12/17 16:00 98.0 88 19 162/99 (120) 97 I/O 08/12/17 08/12/17 08/12/17 08/13/17 08/13/17 08/13/17 07:00 15:00 23:00 07:00 15:00 23:00 Intake Total 262 ml 350 ml 0 ml 966 ml 282 ml Output Total 1100 ml 1 ml Balance -838 ml 350 ml 0 ml 966 ml 281 ml IV Total 300 ml 966 ml Tube Feeding 262 ml 0 ml 122 ml Other 50 ml 160 ml Output Urine Total 1100 ml 1 ml # Voids 4 4 # Bowel Movements 0 Result Diagram: 08/12/17 0516 08/12/17 0516 Imaging Last Impressions Chest CT 08/13/17 0000 Signed Impressions: Service Date/Time: Sunday, August 13, 2017 10:05 - CONCLUSION: 1. Small simple appearing bilateral pleural effusions with compressive atelectasis. 2. There is moderate emphysema. No pulmonary nodules are identified to suggest metastatic disease. 3. There is narrowing of the airway superior to the tracheostomy. Additionally, there is tracheal wall thickening with mild abnormal soft tissue surrounding the trachea and the superior mediastinum. Renato Drew MD Port Line Insertion 08/12/17 0000 Signed Impressions: Service Date/Time: Saturday, August 12, 2017 12:06 - CONCLUSION: Uncomplicated ultrasound and fluoroscopic guided implanted central venous port catheter placement as described in detail above. An 8 Amharic Power port was placed. Renato Candelaria MD Chest X-Ray 08/07/17 0528 Signed Impressions: Service Date/Time: Monday, August 07, 2017 05:38 - CONCLUSION: No acute disease. Walker Sharif MD Neck CT 08/07/17 0000 Signed Impressions: Service Date/Time: Monday, August 07, 2017 06:35 - CONCLUSION: 1. Soft tissue mass involving left performed sinuses and aryepiglottic folds most characteristic of a tumor. Direct visualization is recommended. 2. Small left cervical chain nodes which may be reactive. 3. Emphysema in the lung apices. Walker Sharif MD Objective Remarks GENERAL: This is a well-nourished, well-developed patient, in no apparent distress. HEENT: Trach in place. CARDIOVASCULAR: Regular rate and regular rhythm without murmurs, gallops, or rubs. RESPIRATORY: Clear to auscultation. Breath sounds equal bilaterally. No wheezes , rales, or rhonchi. GASTROINTESTINAL: Abdomen soft, non-tender, nondistended. Normal, active bowel sounds. MUSCULOSKELETAL: Extremities without clubbing, cyanosis, or edema. NEURO: Alert & Oriented x4 to person, place, time, situation. Moves all ext x4. PSYCH: Mood and affect appropriate. Procedures Tracheostomy/ Microlaryngoscopy and biopsy PEG tube/ Port placement Medications and IVs Current Medications Medications (Trade) Dose Ordered Sig/Kali Route Start Time Stop Time Status Last Admin (NS Flush) 2 ml UNSCH PRN IVF 08/07/17 05:30 08/10/17 19:58 (Zofran Inj) 4 mg Q8HR PRN IV PUSH 08/07/17 07:45 (Albuterol Neb) 1.25 mg Q4HR NEB PRN NEB 08/07/17 07:45 Sodium Chloride 1,000 ml @ 84 mls/hr [id number] IV 08/07/17 09:00 08/13/17 08:32 (Pepcid Inj) 20 mg Q12HR IV PUSH 08/07/17 21:00 08/13/17 08:36 (Zofran Inj) 4 mg Q6H PRN IV PUSH 08/07/17 09:15 08/12/17 19:48 (Duoneb Neb) 1 ampule Q2HR NEB PRN INH 08/07/17 09:15 (Peridex 0.12% Liq) 15 ml BID@08,20 MT 08/07/17 20:00 08/13/17 08:00 (Morphine Inj) 2 mg Q3H PRN IV PUSH 08/07/17 11:45 08/12/17 09:31 (Habitrol 21 Mg Patch.24 Hr) 1 patch DAILY T-DERMAL 08/08/17 09:00 08/13/17 08:35 Miscellaneous Information 1 DAILY T-DERMAL 08/08/17 09:00 08/13/17 08:35 (Ativan Inj) 1 mg Q6H PRN IV 08/08/17 07:30 08/10/17 14:30 ([place] 5-325 Mg) 1 tab Q4H PRN PO 08/10/17 18:15 08/13/17 10:42 (Xanax) 0.25 mg Q4H PRN PO 08/10/17 18:15 08/10/17 19:57 (Morphine Inj) 2 mg Q1H PRN IV PUSH 08/10/17 18:15 08/12/17 19:49 (Apresoline) 25 mg Q6H PRN PO 08/10/17 18:15 Cefazolin Sodium/ Dextrose 50 ml @ 100 mls/hr CODING COMPLIANCE SPECIALIST IV 08/12/17 09:45 Vancomycin HCl 1000 mg/Sodium Chloride 250 ml @ 250 mls/hr CODING COMPLIANCE SPECIALIST IV 08/12/17 11:00 08/16/17 10:59 08/12/17 12:43 Cefazolin Sodium/ Dextrose 50 ml @ 100 mls/hr CODING COMPLIANCE SPECIALIST IV 08/12/17 11:00 08/16/17 10:59 08/12/17 11:31 (Heparin Central Flush) 500 units UNSCH IV FLUSH 08/12/17 13:30 (NS Flush) 5 ml UNSCH PRN IVF 08/12/17 13:30 (Heparin Central Flush) 250 units UNSCH PRN IV FLUSH 08/12/17 13:30 A/P Problem List: (1) Acute airway obstruction ICD Code: J98.8 - Other specified respiratory disorders (2) Laryngeal mass ICD Code: J38.7 - Other diseases of larynx Status: Acute (3) Stridor ICD Code: R06.1 - Stridor Status: Acute Assessment and Plan Laryngeal mass S/p tracheostomy and microlaryngoscopy and biopsy. Oncology/ radiation oncology , ENT and GI following. S/p PEG and port placement. CT chest per oncology noted. - follow the pathology. - tube feeds. - continue with trach care. - follow up with oncology. - encourage ambulation. PT. Low TSH Borderline result. - repeat labs as an outpt. DVT prophylaxis: SCD's Discharge Planning Will likely need placement Walker Bautista DO Aug 13, 2017 12:48
--- NOTE | 2017-08-13 14:11 | PD.ONC.PN ---
Subjective Subjective Remarks Afebrile overnight. Patient resting in room with son at bedside. No complaints. awaiting pathology results. tolerating tube feeds. Objective Data Date Time Temp Pulse Resp B/P (MAP) Pulse Ox O2 Delivery O2 Flow Rate FiO2 08/13/17 12:01 97.6 76 20 144/104 (117) 95 08/13/17 08:44 100 Trach Collar 5.00 28 08/13/17 08:29 98.7 93 20 148/97 (114) 96 08/13/17 07:31 94 T-piece 28 08/13/17 04:00 98.5 86 18 119/75 (90) 98 08/13/17 02:00 T-Piece 28 08/13/17 00:00 98.3 91 18 131/84 (100) 95 08/12/17 20:30 100 T-piece 5.00 28 08/12/17 20:00 98.9 108 18 148/98 (115) 97 08/12/17 20:00 97 T-Piece 28 Humidified 08/12/17 20:00 108 08/12/17 20:00 98.0 109 18 155/102 (119) 97 08/12/17 16:00 98.0 88 19 162/99 (120) 97 08/13/17 08/13/17 08/13/17 07:00 15:00 23:00 Intake Total 966 ml 282 ml Output Total 1 ml Balance 966 ml 281 ml Result Diagram: 08/12/17 0516 08/12/17 0516 Imaging Studies Last [address] 08/13/17 0000 Signed Impressions: Service Date/Time: Sunday, August 13, 2017 10:05 - CONCLUSION: 1. Small simple appearing bilateral pleural effusions with compressive atelectasis. 2. There is moderate emphysema. No pulmonary nodules are identified to suggest metastatic disease. 3. There is narrowing of the airway superior to the tracheostomy. Additionally, there is tracheal wall thickening with mild abnormal soft tissue surrounding the trachea and the superior mediastinum. Renato Drew MD Administered Medications Medications (Trade) Dose Ordered Sig/Kali Route PRN Reason Start Time Stop Time Status Last Admin Dose Admin Sodium Chloride (NS Flush) 2 ml UNSCH PRN IVF FLUSH AFTER USING IV ACCESS 08/07/17 05:30 08/10/17 19:58 Sodium Chloride 1,000 ml @ 84 mls/hr [id number] IV 08/07/17 09:00 08/13/17 08:32 Famotidine (Pepcid Inj) 20 mg Q12HR IV PUSH 08/07/17 21:00 08/13/17 08:36 Ondansetron HCl (Zofran Inj) 4 mg Q6H PRN IV PUSH NAUSEA OR VOMITING 08/07/17 09:15 08/12/17 19:48 Chlorhexidine Gluconate (Peridex 0.12% Liq) 15 ml BID@08,20 MT 08/07/17 20:00 08/13/17 08:00 Morphine Sulfate (Morphine Inj) 2 mg Q3H PRN IV PUSH pain 6-10 08/07/17 11:45 08/12/17 09:31 Nicotine (Habitrol 21 Mg Patch.24 Hr) 1 patch DAILY T-DERMAL 08/08/17 09:00 08/13/17 08:35 Miscellaneous Information 1 DAILY T-DERMAL 08/08/17 09:00 08/13/17 08:35 Lorazepam (Ativan Inj) 1 mg Q6H PRN IV anxiety or agitation 08/08/17 07:30 08/10/17 14:30 Acetaminophen/ Hydrocodone Bitart ([place] 5-325 Mg) 1 tab Q4H PRN PO pain 5-10 08/10/17 18:15 08/13/17 10:42 Alprazolam (Xanax) 0.25 mg Q4H PRN PO anxiety 08/10/17 18:15 08/10/17 19:57 Morphine Sulfate (Morphine Inj) 2 mg Q1H PRN IV PUSH Pain 6-10 08/10/17 18:15 08/12/17 19:49 Vancomycin HCl 1000 mg/Sodium Chloride 250 ml @ 250 mls/hr PETROPHYSICAL ENGINEER IV 08/12/17 11:00 08/16/17 10:59 08/12/17 12:43 Cefazolin Sodium/ Dextrose 50 ml @ 100 mls/hr PETROPHYSICAL ENGINEER IV 08/12/17 11:00 08/16/17 10:59 08/12/17 11:31 Objective Remarks GENERAL: middle aged female, sitting up in bed in [facility]. SKIN: Warm and dry. HEAD: Normocephalic. EYES: no injection or drainage. NECK: Supple, trachea midline. trach in place. CARDIOVASCULAR: Regular rate and rhythm RESPIRATORY: Breath sounds equal bilaterally. No accessory muscle use. GASTROINTESTINAL: Abdomen soft, non-tender, nondistended. receiving TF via PEG tube EXTREMITIES: No cyanosis NEUROLOGICAL: No obvious focal deficit. Awake, alert, and oriented x3. Assessment/Plan Problem List: (1) Laryngeal cancer ICD Codes: C32.9 - Malignant neoplasm of larynx, unspecified Plan: s/p biopsy in [place] 08/09, pathology showed poorly diff. invasive squamous cell carcinoma. --treatment will be concurrent chemo/radiation. History: --started having dysphonia about two months ago. She developed progressive dysphagia and shortness of breath. 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 There was a small left cervical chain lymph node, which could be reactive, but cannot rule out metastatic disease. The mass has obstructed the airway and the patient had emergent tracheostomy placement today. She has been evaluated and Dr. Shay is going to take the patient to the operating room for examination under anesthesia and biopsy on Saturday. --will need outpatient PET scan. -- If she has localize disease, primary treatment will be concurrent chemotherapy and radiation. She is awaiting evaluation by radiation oncology. I told them that the patient will need port placement. Given that she has dysphagia she will likely need PEG tube placement also. 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 h/o tobacco and alcohol use. Borderline diabetes not on any medication. Chronic obstructive pulmonary disease, not previously diagnosed. Hypertension. Plan 1. plan for concurrent chemo/radiation outpatient. 2. continue tube feeds Attending Statement The exam, history, and the medical decision-making described in the above note were completed with the assistance of the mid-level provider. I reviewed and agree with the findings presented. I attest that I had a [id number] encounter with the patient on the same day, and personally performed and documented my assessment and findings in the medical record. Had port and PEG tube placement, slightly sore at surgical sites. Discussed with pathology, path showed poorly differentiated SCCA, P16 negative. Will get CT chest to r/o thoracic mets. She will need concurrent chemo and XRT when recovers from the surgery. Regi Pitts Aug 13, 2017 14:11 Artie Hayward MD Aug 13, 2017 14:37
--- NOTE | 2017-08-13 14:47 | HHI.GIFU ---
Subjective Remarks Pt resting in bed in NAD. Admits some mild soreness around PEG site. Denies n/ v. (Stacey George) Objective Vitals I&O Vital Signs Date Time Temp Pulse Resp B/P (MAP) Pulse Ox O2 Delivery O2 Flow Rate FiO2 08/13/17 12:01 97.6 76 20 144/104 (117) 95 08/13/17 08:44 100 Trach Collar 5.00 28 08/13/17 08:29 98.7 93 20 148/97 (114) 96 08/13/17 07:31 94 T-piece 28 08/13/17 04:00 98.5 86 18 119/75 (90) 98 08/13/17 02:00 T-Piece 28 08/13/17 00:00 98.3 91 18 131/84 (100) 95 08/12/17 20:30 100 T-piece 5.00 28 08/12/17 20:00 98.9 108 18 148/98 (115) 97 08/12/17 20:00 97 T-Piece 28 Humidified 08/12/17 20:00 108 08/12/17 20:00 98.0 109 18 155/102 (119) 97 08/12/17 16:00 98.0 88 19 162/99 (120) 97 I/O 08/12/17 08/12/17 08/12/17 08/13/17 08/13/17 08/13/17 07:00 15:00 23:00 07:00 15:00 23:00 Intake Total 262 ml 350 ml 0 ml 966 ml 282 ml Output Total 1100 ml 1 ml Balance -838 ml 350 ml 0 ml 966 ml 281 ml IV Total 300 ml 966 ml Tube Feeding 262 ml 0 ml 122 ml Other 50 ml 160 ml Output Urine Total 1100 ml 1 ml # Voids 4 4 # Bowel Movements 0 Laboratory Laboratory Tests Test 08/07/17 05:47 08/07/17 06:53 08/07/17 09:30 08/07/17 10:30 Blood Urea Nitrogen 2 MG/DL Creatinine 0.50 MG/DL Random Glucose 94 MG/DL Total Protein 7.9 GM/DL Albumin 3.8 GM/DL Calcium Level 9.4 MG/DL Magnesium Level 2.0 MG/DL Alkaline Phosphatase 141 U/L Aspartate Amino Transf (AST/SGOT) 61 U/L Alanine Aminotransferase (ALT/SGPT) 56 U/L Total Bilirubin 0.8 MG/DL Sodium Level 126 MEQ/L Potassium Level 3.6 MEQ/L Chloride Level 85 MEQ/L Carbon Dioxide Level 33.3 MEQ/L Total Creatine Kinase 66 U/L Troponin I LESS THAN 0.02 NG/ML B-Type Natriuretic Peptide 58 PG/ML Urine Color LIGHT-YELLOW Urine Turbidity CLEAR Urine pH 7.5 Urine Specific [place] 1.040 Urine Protein NEG mg/dL Urine Glucose (UA) NEG mg/dL Urine Ketones 10 mg/dL Urine Occult Blood NEG Urine Nitrite NEG Urine Bilirubin NEG Urine Urobilinogen LESS THAN 2.0 MG/DL Urine Leukocyte Esterase MOD Urine RBC 1 /hpf Urine WBC 5 /hpf Urine Squamous Epithelial Cells 1 /hpf Urine Bacteria RARE /hpf Microscopic Urinalysis Comment CULT NOT INDICATED Urine Osmolality 192 MOSM/KG Serum Osmolality 268 MOSM/KG Nasal Screen MRSA (PCR) MRSA NOT DETECTED Test 08/07/17 13:10 08/08/17 06:06 08/08/17 06:09 08/12/17 05:16 Thyroid Stimulating Hormone 3rd Gen 0.352 uIU/ML Hepatitis A IgM Antibody NEGATIVE Hepatitis B Surface Antigen NEGATIVE Hepatitis B Core IgM Antibody NEGATIVE Hepatitis C Antibody NEGATIVE Blood Urea Nitrogen 8 MG/DL 7 MG/DL Creatinine 0.40 MG/DL 0.28 MG/DL Random Glucose 81 MG/DL 86 MG/DL Total Protein 5.6 GM/DL Albumin 2.7 GM/DL Calcium Level 8.6 MG/DL 8.3 MG/DL Alkaline Phosphatase 89 U/L Aspartate Amino Transf (AST/SGOT) 32 U/L Alanine Aminotransferase (ALT/SGPT) 36 U/L Total Bilirubin 0.7 MG/DL Sodium Level 135 MEQ/L 136 MEQ/L Potassium Level 3.5 MEQ/L 3.9 MEQ/L Chloride Level 100 MEQ/L 100 MEQ/L Carbon Dioxide Level 26.6 MEQ/L 30.4 MEQ/L Prothrombin Time 10.3 SEC Prothromb Time International Ratio 1.0 RATIO Activated Partial Thromboplast Time 24.0 SEC White Blood Count 4.8 TH/MM3 Red Blood Count 4.49 MIL/MM3 Hemoglobin 15.5 GM/DL Hematocrit 44.3 % Mean Corpuscular Volume 98.6 FL Mean Corpuscular Hemoglobin 34.6 PG Mean Corpuscular Hemoglobin Concent 35.1 % Red Cell Distribution Width 12.9 % Platelet Count 199 TH/MM3 Mean Platelet Volume 8.8 FL Neutrophils (%) (Auto) 65.0 % Lymphocytes (%) (Auto) 17.3 % Monocytes (%) (Auto) 14.0 % Eosinophils (%) (Auto) 2.7 % Basophils (%) (Auto) 1.0 % Neutrophils # (Auto) 3.1 TH/MM3 Lymphocytes # (Auto) 0.8 TH/MM3 Monocytes # (Auto) 0.7 TH/MM3 Eosinophils # (Auto) 0.1 TH/MM3 Basophils # (Auto) 0.0 TH/MM3 CBC Comment DIFF FINAL Differential Comment Anion Gap 6 MEQ/L Estimat Glomerular Filtration Rate 255 ML/MIN Imaging Last Impressions Chest CT 08/13/17 0000 Signed Impressions: Service Date/Time: Sunday, August 13, 2017 10:05 - CONCLUSION: 1. Small simple appearing bilateral pleural effusions with compressive atelectasis. 2. There is moderate emphysema. No pulmonary nodules are identified to suggest metastatic disease. 3. There is narrowing of the airway superior to the tracheostomy. Additionally, there is tracheal wall thickening with mild abnormal soft tissue surrounding the trachea and the superior mediastinum. Renato Drew MD Port Line Insertion 08/12/17 0000 Signed Impressions: Service Date/Time: Saturday, August 12, 2017 12:06 - CONCLUSION: Uncomplicated ultrasound and fluoroscopic guided implanted central venous port catheter placement as described in detail above. An 8 Malay Power port was placed. Renato Candelaria MD Chest X-Ray 08/07/17 0528 Signed Impressions: Service Date/Time: Monday, August 07, 2017 05:38 - CONCLUSION: No acute disease. Walker Sharif MD Neck CT 08/07/17 0000 Signed Impressions: Service Date/Time: Monday, August 07, 2017 06:35 - CONCLUSION: 1. Soft tissue mass involving left performed sinuses and aryepiglottic folds most characteristic of a tumor. Direct visualization is recommended. 2. Small left cervical chain nodes which may be reactive. 3. Emphysema in the lung apices. Walker Sharif MD Physical Exam HEENT: PERRL; normocephalic; atraumatic; no jaundice. T piece, trach CHEST: CTA CARDIAC: RRR ABDOMEN: Soft, nondistended, nontender; no hepatosplenomegaly; bowel sounds are present in all four quadrants. peg site dressing dry and intact EXTREMITIES: No clubbing, cyanosis, or edema. SKIN: Normal; no rash; no jaundice. DIGITAL ENGINEER: No focal deficits; alert and oriented times three. (Stacey George) Assessment and Plan Plan Severe stridor with dysphagia, symptomatic requiring tracheotomy. Soft tissue mass, laryngeal area requiring tracheotomy for now. Needs visualization according to CT scan. Nutritional deficits and weight loss, 15 pounds over the past few months. Currently being managed with Glucerna tube feeds per NG tube tolerate and 45 cc an hour, positive for gas without bloating for now. PEG tube discussion is already in place. History of tobacco and EtOH abuse and marijuana use. Emphysema noted on CT scan. 08/12/17 Patient was seen and examined, tube with upper endoscopy was placed IMPRESSION: Normal exam PEG tube was placed, Antibiotic was given earlier 08/13/17 pt seems comfortable. mild soreness PEG site. TF ready. biopsy neck mass poorly differentiated squamous cell carcinoma. chemo and radiation per oncology. PLAN: - restart TF - further mgmt per oncology - supportive care - GI will sign off, please reconsult if needed pt seen by myself and Dr Hart and this note is written on his behalf (Stacey George) Plan Agree with above-noted, patient tolerating feeding tube, further plan per oncology, we'll sign off (Leticia Hart MD) Stacey George Aug 13, 2017 14:47 Leticia Hart MD Aug 13, 2017 15:31
[2017-08-13] MEDS: hydrALAZINE HCL 25 MG TAB PO PRN (22:21)
[2017-08-14] VITALS (14 sets, daily range): BP systolic 120–157; BP diastolic 83–106; PULSE 86–100; RESP 18–20; TEMP 97.6–99.3; O2SAT 96–98
[2017-08-14] MEDS ORDERED: METOCLOPRAMIDE HCL 10 MG/2 ML VIAL IV PUSH ONE (02:30)
[2017-08-14] MEDS: CHLORHEXIDINE 0.12% (ORAL KIT) 15 ML CUP MT SCH ×2 (08:00→20:00)
[2017-08-14] MEDS: REMOVE OLD PATCH T-DERMAL SCH (09:00)
[2017-08-14] MEDS: ACETAMINOPHEN/HYDROcodone 325 MG/5 MG TAB PO PRN (09:53)
[2017-08-14] MEDS: hydrALAZINE HCL 25 MG TAB PO PRN ×2 (09:53→20:58)
[2017-08-14] MEDS: FAMOTIDINE 20 MG/2 ML VIAL IV PUSH SCH ×2 (09:54→20:58)
[2017-08-14] MEDS: SODIUM CHLOR 0.9% 1000 ML INJ 1,000 ML IV SCH ×2 (09:54→19:45)
[2017-08-14] MEDS: NICOTINE 21 MG/24 HR PATCH T-DERMAL SCH (09:55)
--- NOTE | 2017-08-14 12:13 | PD.ONC.PN ---
Subjective Subjective Remarks Afebrile overnight. Patient resting in bed in nad. Daughter at bedside. tolerating tube feeds. Objective Data Date Time Temp Pulse Resp B/P (MAP) Pulse Ox O2 Delivery O2 Flow Rate FiO2 08/14/17 12:07 99.2 96 20 120/83 (95) 96 08/14/17 10:02 98 T-piece 28 08/14/17 08:23 99.3 96 20 141/94 (110) 97 08/14/17 08:00 T-Piece 5.00 28 08/14/17 06:05 97.6 97 18 137/92 (107) 98 08/14/17 03:34 97 T-piece 5.00 28 08/14/17 00:42 98.9 91 18 149/105 (120) 96 08/13/17 22:22 96 169/109 (129) 08/13/17 21:00 T-Piece 5.00 28 08/13/17 20:37 98.9 87 18 155/102 (119) 98 08/13/17 15:49 99.2 70 20 143/95 (111) 98 Result Diagram: 08/12/17 0508/12/17 0516 Administered Medications Medications (Trade) Dose Ordered Sig/Kali Route PRN Reason Start Time Stop Time Status Last Admin Dose Admin Sodium Chloride (NS Flush) 2 ml UNSCH PRN IVF FLUSH AFTER USING IV ACCESS 08/07/17 05:30 08/10/17 19:58 Sodium Chloride 1,000 ml @ 84 mls/hr [id number] IV 08/07/17 09:00 08/14/17 09:54 Famotidine (Pepcid Inj) 20 mg Q12HR IV PUSH 08/07/17 21:00 08/14/17 09:54 Ondansetron HCl (Zofran Inj) 4 mg Q6H PRN IV PUSH NAUSEA OR VOMITING 08/07/17 09:15 08/12/17 19:48 Chlorhexidine Gluconate (Peridex 0.12% Liq) 15 ml BID@08,20 MT 08/07/17 20:00 08/14/17 08:00 Morphine Sulfate (Morphine Inj) 2 mg Q3H PRN IV PUSH pain 6-10 08/07/17 11:45 08/12/17 09:31 Nicotine (Habitrol 21 Mg Patch.24 Hr) 1 patch DAILY T-DERMAL 08/08/17 09:00 08/14/17 09:55 Miscellaneous Information 1 DAILY T-DERMAL 08/08/17 09:00 08/14/17 09:00 Lorazepam (Ativan Inj) 1 mg Q6H PRN IV anxiety or agitation 08/08/17 07:30 08/10/17 14:30 Acetaminophen/ Hydrocodone Bitart ([place] 5-325 Mg) 1 tab Q4H PRN PO pain 5-10 08/10/17 18:15 08/14/17 09:53 Alprazolam (Xanax) 0.25 mg Q4H PRN PO anxiety 08/10/17 18:15 08/10/17 19:57 Morphine Sulfate (Morphine Inj) 2 mg Q1H PRN IV PUSH Pain 6-10 08/10/17 18:15 08/12/17 19:49 Hydralazine HCl (Apresoline) 25 mg Q6H PRN PO SBP > 160, DBP > 90 08/10/17 18:15 08/14/17 09:53 Vancomycin HCl 1000 mg/Sodium Chloride 250 ml @ 250 mls/hr WALL SCRAPER IV 08/12/17 11:00 08/16/17 10:59 08/12/17 12:43 Cefazolin Sodium/ Dextrose 50 ml @ 100 mls/hr WALL SCRAPER IV 08/12/17 11:00 08/16/17 10:59 08/12/17 11:31 Objective Remarks GENERAL: middle aged female, upright in bed, appears freshly groomed. SKIN: Warm and dry. HEAD: Normocephalic. EYES: no injection or drainage. NECK: Supple, trachea midline. trach in place. CARDIOVASCULAR: Regular rate and rhythm RESPIRATORY: Breath sounds equal bilaterally. No accessory muscle use. GASTROINTESTINAL: Abdomen soft, non-tender, nondistended. PEG tube in place, receiving TF. EXTREMITIES: No cyanosis NEUROLOGICAL: awake and alert. unable to speak d/t trach. moving extremities. Assessment/Plan Problem List: (1) Laryngeal cancer ICD Codes: C32.9 - Malignant neoplasm of larynx, unspecified Plan: s/p biopsy in [place] 08/09, pathology showed poorly diff. invasive squamous cell carcinoma. --treatment will be concurrent chemo/radiation. --radiation simulation will be SaturdayAugust 19 (this can be done outpatient or inpatient) History: --started having dysphonia about two months ago. She developed progressive dysphagia and shortness of breath. 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 There was a small left cervical chain lymph node, which could be reactive, but cannot rule out metastatic disease. The mass has obstructed the airway and the patient had emergent tracheostomy placement today. She has been evaluated and Dr. Shay is going to take the patient to the operating room for examination under anesthesia and biopsy on Saturday. --will need outpatient PET scan. -- If she has localize disease, primary treatment will be concurrent chemotherapy and radiation. She is awaiting evaluation by radiation oncology. I told them that the patient will need port placement. Given that she has dysphagia she will likely need PEG tube placement also. 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 h/o tobacco and alcohol use. Borderline diabetes not on any medication. Chronic obstructive pulmonary disease, not previously diagnosed. Hypertension. Plan 1. consult scan coordinator for bolus tube feeds 2. discussed with patient and daughter plan to start concurrent chemoradiation. discussed plan for simulation next Saturday. discussed that this can be done inpatient if she is still in the hospital or outpatient if she has been discharged. Attending Statement The exam, history, and the medical decision-making described in the above note were completed with the assistance of the mid-level provider. I reviewed and agree with the findings presented. I attest that I had a [id number] encounter with the patient on the same day, and personally performed and documented my assessment and findings in the medical record. Some soreness at PEG tube site. Discussed pathology with her. Ct chest showed no mets disease. Plan to treat with concurrent weekly chemotherapy and XRT. She is scheduled for simulation next week. Regi Pitts Aug 14, 2017 12:12 Artie Hayward MD Aug 14, 2017 16:26
--- NOTE | 2017-08-14 12:15 | HHI.PR ---
Subjective Remarks The patient was resting in bed comfortably. She denied any pain. She said she was breathing comfortably. She was tolerating tube feeds. Discussed with nursing and case management. Objective Vitals Vital Signs Date Time Temp Pulse Resp B/P (MAP) Pulse Ox O2 Delivery O2 Flow Rate FiO2 08/14/17 12:07 99.2 96 20 120/83 (95) 96 08/14/17 10:02 98 T-piece 28 08/14/17 08:23 99.3 96 20 141/94 (110) 97 08/14/17 08:00 T-Piece 5.00 28 08/14/17 06:05 97.6 97 18 137/92 (107) 98 08/14/17 03:34 97 T-piece 5.00 28 08/14/17 00:42 98.9 91 18 149/105 (120) 96 08/13/17 22:22 96 169/109 (129) 08/13/17 21:00 T-Piece 5.00 28 08/13/17 20:37 98.9 87 18 155/102 (119) 98 08/13/17 15:49 99.2 70 20 143/95 (111) 98 I/O 08/13/17 08/13/17 08/13/17 08/14/17 08/14/17 08/14/17 07:00 15:00 23:00 07:00 15:00 23:00 Intake Total 966 ml 282 ml Output Total 1 ml 1400 ml Balance 966 ml 281 ml -1400 ml IV Total 966 ml Tube Feeding 122 ml Other 160 ml Output Urine Total 1 ml 1400 ml # Voids 4 3 Result Diagram: 08/12/17 0516 08/12/17 0516 Imaging Last Impressions Chest CT 08/13/17 0000 Signed Impressions: Service Date/Time: Sunday, August 13, 2017 10:05 - CONCLUSION: 1. Small simple appearing bilateral pleural effusions with compressive atelectasis. 2. There is moderate emphysema. No pulmonary nodules are identified to suggest metastatic disease. 3. There is narrowing of the airway superior to the tracheostomy. Additionally, there is tracheal wall thickening with mild abnormal soft tissue surrounding the trachea and the superior mediastinum. Renato Drew MD Port Line Insertion 08/12/17 0000 Signed Impressions: Service Date/Time: Saturday, August 12, 2017 12:06 - CONCLUSION: Uncomplicated ultrasound and fluoroscopic guided implanted central venous port catheter placement as described in detail above. An [employer] [place] Power port was placed. Renato Candelaria MD Chest X-Ray 08/07/17 0528 Signed Impressions: Service Date/Time: Monday, August 07, 2017 05:38 - CONCLUSION: No acute disease. Walker Sharif MD Neck CT 08/07/17 0000 Signed Impressions: Service Date/Time: Monday, August 07, 2017 06:35 - CONCLUSION: 1. Soft tissue mass involving left performed sinuses and aryepiglottic folds most characteristic of a tumor. Direct visualization is recommended. 2. Small left cervical chain nodes which may be reactive. 3. Emphysema in the lung apices. Walker Sharif MD Objective Remarks GENERAL: This is a well-nourished, well-developed patient, in no apparent distress. HEENT: Trach in place. CARDIOVASCULAR: Regular rate and regular rhythm without murmurs, gallops, or rubs. RESPIRATORY: Clear to auscultation. Breath sounds equal bilaterally. No wheezes , rales, or rhonchi. GASTROINTESTINAL: Abdomen soft, non-tender, nondistended. Normal, active bowel sounds. PEG tube in place. MUSCULOSKELETAL: Extremities without clubbing, cyanosis, or edema. NEURO: Alert & Oriented x4 to person, place, time, situation. Moves all ext x4. PSYCH: Mood and affect appropriate. Procedures Tracheostomy/ Microlaryngoscopy and biopsy PEG tube/ Port placement Medications and IVs Current Medications Medications (Trade) Dose Ordered Sig/Kali Route Start Time Stop Time Status Last Admin (NS Flush) 2 ml UNSCH PRN IVF 08/07/17 05:30 08/10/17 19:58 (Zofran Inj) 4 mg Q8HR PRN IV PUSH 08/07/17 07:45 (Albuterol Neb) 1.25 mg Q4HR NEB PRN NEB 08/07/17 07:45 Sodium Chloride 1,000 ml @ 84 mls/hr [id number] IV 08/07/17 09:00 08/14/17 09:54 (Pepcid Inj) 20 mg Q12HR IV PUSH 08/07/17 21:00 08/14/17 09:54 (Zofran Inj) 4 mg Q6H PRN IV PUSH 08/07/17 09:15 08/12/17 19:48 (Duoneb Neb) 1 ampule Q2HR NEB PRN INH 08/07/17 09:15 (Peridex 0.12% Liq) 15 ml BID@08,20 MT 08/07/17 20:00 08/14/17 08:00 (Morphine Inj) 2 mg Q3H PRN IV PUSH 08/07/17 11:45 08/12/17 09:31 (Habitrol 21 Mg Patch.24 Hr) 1 patch DAILY T-DERMAL 08/08/17 09:00 08/14/17 09:55 Miscellaneous Information 1 DAILY T-DERMAL 08/08/17 09:00 08/14/17 09:00 (Ativan Inj) 1 mg Q6H PRN IV 08/08/17 07:30 08/10/17 14:30 (Mccracken 5-325 Mg) 1 tab Q4H PRN PO 08/10/17 18:15 08/14/17 09:53 (Xanax) 0.25 mg Q4H PRN PO 08/10/17 18:15 08/10/17 19:57 (Morphine Inj) 2 mg Q1H PRN IV PUSH 08/10/17 18:15 08/12/17 19:49 (Apresoline) 25 mg Q6H PRN PO 08/10/17 18:15 08/14/17 09:53 Cefazolin Sodium/ Dextrose 50 ml @ 100 mls/hr MANAGER BABY IV 08/12/17 09:45 Vancomycin HCl 1000 mg/Sodium Chloride 250 ml @ 250 mls/hr MANAGER BABY IV 08/12/17 11:00 08/16/17 10:59 08/12/17 12:43 Cefazolin Sodium/ Dextrose 50 ml @ 100 mls/hr MANAGER BABY IV 08/12/17 11:00 08/16/17 10:59 08/12/17 11:31 (Heparin Central Flush) 500 units UNSCH IV FLUSH 08/12/17 13:30 (NS Flush) 5 ml UNSCH PRN IVF 08/12/17 13:30 (Heparin Central Flush) 250 units UNSCH PRN IV FLUSH 08/12/17 13:30 (Loreta-Colace) 1 tab BID PEG 08/14/17 10:45 A/P Problem List: (1) Acute airway obstruction ICD Code: J98.8 - Other specified respiratory disorders (2) Laryngeal mass ICD Code: J38.7 - Other diseases of larynx Status: Acute (3) Stridor ICD Code: R06.1 - Stridor Status: Acute Assessment and Plan Laryngeal mass S/p tracheostomy and microlaryngoscopy and biopsy. Oncology/ radiation oncology , ENT and GI following. S/p PEG and port placement. CT chest per oncology noted. Pathology shows poorly differentiated SCCA, P16 negative. - tube feeds. - continue with trach care. - follow up with oncology. Concurrent chemo/ radiation planned. - encourage ambulation. PT. - pain control as needed. HTN Well controlled at this time. - hydralazine as needed. Low TSH Borderline result. - repeat labs as an outpt. DVT prophylaxis: SCD's Walker Bautista DO Aug 14, 2017 12:15
[2017-08-14] MEDS: DOCUSATE SODIUM 50 MG/SENNA 8.6 MG TAB PEG SCH ×2 (17:57→20:37)
[2017-08-14] MEDS: MORPHINE SULFATE 2 MG/ML INJ IV PUSH PRN ×2 (17:58→20:58)
[2017-08-15] VITALS (17 sets, daily range): BP systolic 113–147; BP diastolic 78–103; PULSE 84–105; RESP 16–20; TEMP 98.5–99; O2SAT 93–98
[2017-08-15] MEDS: MORPHINE SULFATE 2 MG/ML INJ IV PUSH PRN (04:49)
[2017-08-15] MEDS: CHLORHEXIDINE 0.12% (ORAL KIT) 15 ML CUP MT SCH ×2 (08:00→20:00)
[2017-08-15 08:04] LABS: HEMOGLOBIN 13.8 GM/DL (11.6-15.3); MEAN CELL VOLUME 95.6 FL (80.0-100.0); MEAN CORPUSCULAR HEMOGLOBIN 33.9 PG (27.0-34.0); MEAN CORPUSCULAR HGB CONC 35.4 % (32.0-36.0); MEAN PLATELET VOLUME 8.3 FL (7.0-11.0); PLATELET COUNT 250 TH/MM3 (150-450); RED BLOOD COUNT 4.08 MIL/MM3 (4.00-5.30); RED CELL DISTRIBUTION WIDTH 12.8 % (11.6-17.2); WHITE BLOOD COUNT 4.8 TH/MM3 (4.0-11.0)
[2017-08-15 08:07] LABS: CALCIUM 8.5 MG/DL (8.5-10.1); CREATININE 0.25 MG/DL (0.50-1.00); MAGNESIUM 1.9 MG/DL (1.5-2.5)
[2017-08-15 08:08] LABS: BICARBONATE 27.8 MEQ/L (21.0-32.0)
[2017-08-15] MEDS: REMOVE OLD PATCH T-DERMAL SCH (09:00)
[2017-08-15] MEDS: NICOTINE 21 MG/24 HR PATCH T-DERMAL SCH (09:29)
[2017-08-15] MEDS: SODIUM CHLOR 0.9% 1000 ML INJ 1,000 ML IV SCH (09:30)
[2017-08-15] MEDS: FAMOTIDINE 20 MG/2 ML VIAL IV PUSH SCH (09:30)
[2017-08-15] MEDS: DOCUSATE SODIUM 50 MG/SENNA 8.6 MG TAB PEG SCH ×2 (09:31→21:11)
--- NOTE | 2017-08-15 11:29 | PD.ONC.PN ---
Subjective Subjective Remarks Afebrile overnight. Patient resting in room. She had a mild headache earlier, so she took some pain medication. she is otherwise without complaint. She is tolerating tube feeds. she is hoping to go home soon. Objective Data Date Time Temp Pulse Resp B/P (MAP) Pulse Ox O2 Delivery O2 Flow Rate FiO2 08/15/17 09:50 96 T-piece 28 08/15/17 08:00 98.6 93 16 145/101 (116) 96 08/15/17 06:00 86 08/15/17 05:00 90 08/15/17 04:54 16 08/15/17 04:41 98.7 92 19 147/103 (118) 95 08/15/17 04:01 86 08/15/17 03:00 84 08/15/17 02:00 90 08/15/17 01:00 90 08/15/17 00:02 98 08/15/17 00:00 98.5 105 16 121/90 (100) 95 08/14/17 23:00 98 08/14/17 22:00 100 08/14/17 21:55 18 08/14/17 21:16 96 08/14/17 21:00 T-Piece 5.00 28 08/14/17 20:45 98.8 95 18 157/106 (123) 97 08/14/17 20:01 96 T-piece 5.00 28 08/14/17 17:55 96 T-piece 6.00 28 08/14/17 16:42 99.3 91 20 143/99 (114) 96 08/14/17 12:07 99.2 96 20 120/83 (95) 96 08/15/17 08/15/17 08/15/17 06:59 14:59 22:59 Intake Total 700 ml Output Total 400 ml Balance 300 ml Result Diagram: 08/15/1762608/15/17626 Laboratory Results Laboratory Tests Test 08/15/17 06:27 White Blood Count 4.8 TH/MM3 Red Blood Count 4.08 MIL/MM3 Hemoglobin 13.8 GM/DL Hematocrit 39.0 % Mean Corpuscular Volume 95.6 FL Mean Corpuscular Hemoglobin 33.9 PG Mean Corpuscular Hemoglobin Concent 35.4 % Red Cell Distribution Width 12.8 % Platelet Count 250 TH/MM3 Mean Platelet Volume 8.3 FL Blood Urea Nitrogen 7 MG/DL Creatinine 0.25 MG/DL Random Glucose 93 MG/DL Calcium Level 8.5 MG/DL Magnesium Level 1.9 MG/DL Sodium Level 137 MEQ/L Potassium Level 3.5 MEQ/L Chloride Level 100 MEQ/L Carbon Dioxide Level 27.8 MEQ/L Anion Gap 9 MEQ/L Estimat Glomerular Filtration Rate 291 ML/MIN Administered Medications Medications (Trade) Dose Ordered Sig/Kali Route PRN Reason Start Time Stop Time Status Last Admin Dose Admin Sodium Chloride (NS Flush) 2 ml UNSCH PRN IVF FLUSH AFTER USING IV ACCESS 08/07/17 05:30 08/10/17 19:58 Famotidine (Pepcid Inj) 20 mg Q12HR IV PUSH 08/07/17 21:00 08/15/17 09:30 Ondansetron HCl (Zofran Inj) 4 mg Q6H PRN IV PUSH NAUSEA OR VOMITING 08/07/17 09:15 08/12/17 19:48 Chlorhexidine Gluconate (Peridex 0.12% Liq) 15 ml BID@08,20 MT 08/07/17 20:00 08/14/17 08:00 Morphine Sulfate (Morphine Inj) 2 mg Q3H PRN IV PUSH breakthrough pain 08/07/17 11:45 08/15/17 04:49 Nicotine (Habitrol 21 Mg Patch.24 Hr) 1 patch DAILY T-DERMAL 08/08/17 09:00 08/15/17 09:29 Miscellaneous Information 1 DAILY T-DERMAL 08/08/17 09:00 08/15/17 09:00 Alprazolam (Xanax) 0.25 mg Q4H PRN PO anxiety 08/10/17 18:15 08/10/17 19:57 Hydralazine HCl (Apresoline) 25 mg Q6H PRN PO SBP > 160, DBP > 90 08/10/17 18:15 08/14/17 20:58 Senna/Docusate Sodium (Loreta-Colace) 1 tab BID PEG 08/14/17 10:45 08/15/17 09:31 Oxycodone HCl (Roxicodone) 5 mg Q4H PRN PO pain 3-10 08/14/17 12:15 08/14/17 20:59 Objective Remarks GENERAL: middle aged female, sitting up in bed in nad. SKIN: Warm and dry. HEAD: Normocephalic. EYES: no injection or drainage. NECK: Supple, trachea midline. trach in place, small amount of brown drainage noted around trach. CARDIOVASCULAR: Regular rate and rhythm RESPIRATORY: Breath sounds equal bilaterally. No accessory muscle use. GASTROINTESTINAL: Abdomen soft, non-tender, nondistended. PEG tube clamped. EXTREMITIES: No cyanosis NEUROLOGICAL: awake and alert. moving extremities. Assessment/Plan Problem List: (1) Laryngeal cancer ICD Codes: C32.9 - Malignant neoplasm of larynx, unspecified Plan: s/p biopsy in [place] 08/09, pathology showed poorly diff. invasive squamous cell carcinoma. --treatment will be concurrent chemo/radiation. --radiation simulation will be SaturdayAugust 19 (this can be done outpatient or inpatient) History: --started having dysphonia about two months ago. She developed progressive dysphagia and shortness of breath. 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 There was a small left cervical chain lymph node, which could be reactive, but cannot rule out metastatic disease. The mass obstructed the airway and the patient had emergent tracheostomy placement inpatient. 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 h/o tobacco and alcohol use. Borderline diabetes not on any medication. Chronic obstructive pulmonary disease, not previously diagnosed. Hypertension. Plan 1. continue bolus tube feeds. 2. stop IVF, change all IV medications to PO. 3. discontinue peripheral IV's. will access port if IV access is needed. Attending Statement The exam, history, and the medical decision-making described in the above note were completed with the assistance of the mid-level provider. I reviewed and agree with the findings presented. I attest that I had a [id number] encounter with the patient on the same day, and personally performed and documented my assessment and findings in the medical record. Abdominal pain improved. Tolerating tube feeding. Discussed path and treatment plan with pt and her son. Their questions answered. Have nursing staff do chemo teaching. Plan to treat with weekly cisplatin along with XRT. Regi Pitts Aug 15, 2017 11:29 Artie Hayward MD Aug 15, 2017 16:41
[2017-08-15] MEDS ORDERED: ONDANSETRON ODT 4 MG TAB PO PRN (11:30)
--- NOTE | 2017-08-15 16:23 | HHI.PR ---
Subjective Remarks Patient seen today around 2 PM. Says she is feeling all right. Denies any chest pain or shortness of breath Objective Vital Signs Date Time Temp Pulse Resp B/P (MAP) Pulse Ox O2 Delivery O2 Flow Rate FiO2 08/15/17 13:06 89 08/15/17 13:06 T-Piece 5.00 08/15/17 12:00 99.0 104 16 125/96 (106) 98 08/15/17 09:50 96 T-piece 28 08/15/17 08:00 98.6 93 16 145/101 (116) 96 08/15/17 06:00 86 08/15/17 05:00 90 08/15/17 04:54 16 08/15/17 04:41 98.7 92 19 147/103 (118) 95 08/15/17 04:01 86 08/15/17 03:00 84 08/15/17 02:00 90 08/15/17 01:00 90 08/15/17 00:02 98 08/15/17 00:00 98.5 105 16 121/90 (100) 95 08/14/17 23:00 98 08/14/17 22:00 100 08/14/17 21:55 18 08/14/17 21:16 96 08/14/17 21:00 T-Piece 5.00 08/14/17 20:45 98.8 95 18 157/106 (123) 97 08/14/17 20:01 96 T-piece 5.00 28 08/14/17 17:55 96 T-piece 6.00 08/14/17 16:42 99.3 91 20 143/99 (114) 96 I/O 08/14/17 08/14/17 08/14/17 08/15/17 08/15/17 08/15/17 07:00 15:00 23:00 07:00 15:00 23:00 Intake Total 1010 ml 700 ml 400 ml Output Total 400 ml Balance 1010 ml 300 ml 400 ml IV Total 400 ml Tube Feeding 710 ml 300 ml Tube Irrigant 300 ml Other 400 ml Output Urine Total 400 ml # Voids 3 3 Result Diagram: 08/15/1762608/15/17626 Objective Remarks GENERAL: Patient sitting up in bed. Appears comfortable. SKIN: Warm and dry. HEAD: Normocephalic. EYES: No scleral icterus. No injection or drainage. NECK: Supple, trachea midline. No JVD. Tracheostomy in place. No surrounding erythema. CARDIOVASCULAR: Regular rate and rhythm without murmurs, gallops, or rubs. RESPIRATORY: Breath sounds equal bilaterally. No accessory muscle use. GASTROINTESTINAL: Abdomen soft, non-tender, nondistended. PEG tube in place without surrounding erythema or leakage. MUSCULOSKELETAL: No cyanosis, or edema. BACK: Nontender without obvious deformity. No CVA tenderness. A/P Assessment and Plan //Laryngeal mass S/p tracheostomy and microlaryngoscopy and biopsy. Oncology/ radiation oncology , ENT and GI following. S/p PEG and port placement. CT chest per oncology noted. Pathology shows poorly differentiated SCCA, P16 negative. - tube feeds. - continue with trach care. - follow up with oncology. Concurrent chemo/ radiation planned. - encourage ambulation. PT. - pain control as needed. = Working on possibly getting home health arranged for tracheostomy care, tube feeding, working out whether she can get cancer treatment as outpatient. Discussed with [facility] team, oncology. //HTN Well controlled at this time. - hydralazine as needed. //Low TSH Borderline result. - repeat labs as an outpt. //DVT prophylaxis: SCD's Discharge Planning = Working on possibly getting home health arranged for tracheostomy care, tube feeding, working out whether she can get cancer treatment as outpatient. Discussed with [facility] team, oncology. Travis Echeverria MD Aug 15, 2017 16:23
[2017-08-15] MEDS: MORPHINE SULFATE ORAL SOLN 10 MG/0.5 ML SYRINGE PEG PRN (16:55)
[2017-08-15] MEDS: FAMOTIDINE 40 MG/5 ML LIQ 50 ML BTL PEG SCH (21:10)
[2017-08-16] VITALS (19 sets, daily range): BP systolic 107–130; BP diastolic 69–98; PULSE 82–100; RESP 16–18; TEMP 97.9–98.6; O2SAT 96–98
[2017-08-16] MEDS: MORPHINE SULFATE ORAL SOLN 10 MG/0.5 ML SYRINGE PEG PRN ×2 (03:22→21:14)
[2017-08-16] MEDS: FAMOTIDINE 40 MG/5 ML LIQ 50 ML BTL PEG SCH ×2 (09:00→21:03)
[2017-08-16] MEDS: DOCUSATE SODIUM 50 MG/SENNA 8.6 MG TAB PEG SCH ×2 (09:00→21:03)
[2017-08-16] MEDS: NICOTINE 21 MG/24 HR PATCH T-DERMAL SCH (09:00)
[2017-08-16] MEDS: REMOVE OLD PATCH T-DERMAL SCH (09:00)
--- NOTE | 2017-08-16 09:20 | PD.ONC.PN ---
Subjective Subjective Remarks Afebrile overnight. Patient resting in bed. Tolerating tube feeds. has a small amount of discharge around the trach. Objective Data Date Time Temp Pulse Resp B/P (MAP) Pulse Ox O2 Delivery O2 Flow Rate FiO2 08/16/17 08:00 98.3 90 18 122/91 (101) 98 08/16/17 04:53 98.6 93 16 125/95 (105) 98 08/16/17 04:00 90 08/16/17 03:00 92 08/16/17 02:00 88 08/16/17 01:58 98.3 87 16 130/98 (109) 98 08/16/17 01:00 95 08/16/17 00:15 90 08/16/17 00:00 88 08/15/17 23:00 98 08/15/17 22:00 99 08/15/17 21:00 96 T-Piece 4.00 08/15/17 21:00 99.0 101 20 113/87 (96) 96 08/15/17 21:00 101 08/15/17 16:00 98.6 91 18 130/78 (95) 93 08/15/17 13:06 89 08/15/17 13:06 T-Piece 5.00 08/15/17 12:00 99.0 104 16 125/96 (106) 98 08/15/17 09:50 96 T-piece 28 08/16/17 08/16/17 08/16/17 06:59 14:59 22:59 Intake Total 1050 ml Output Total 350 ml Balance 700 ml Result Diagram: 08/15/1762608/15/17626 Administered Medications Medications (Trade) Dose Ordered Sig/Kali Route PRN Reason Start Time Stop Time Status Last Admin Dose Admin Sodium Chloride (NS Flush) 2 ml UNSCH PRN IVF FLUSH AFTER USING IV ACCESS 08/07/17 05:30 08/10/17 19:58 Chlorhexidine Gluconate (Peridex 0.12% Liq) 15 ml BID@08,20 MT 08/07/17 20:00 08/14/17 08:00 Nicotine (Habitrol 21 Mg Patch.24 Hr) 1 patch DAILY T-DERMAL 08/08/17 09:00 08/15/17 09:29 Miscellaneous Information 1 DAILY T-DERMAL 08/08/17 09:00 08/15/17 09:00 Alprazolam (Xanax) 0.25 mg Q4H PRN PO anxiety 08/10/17 18:15 08/10/17 19:57 Hydralazine HCl (Apresoline) 25 mg Q6H PRN PO SBP > 160, DBP > 90 08/10/17 18:15 08/14/17 20:58 Senna/Docusate Sodium (Loreta-Colace) 1 tab BID PEG 08/14/17 10:45 08/15/17 21:11 Famotidine (Pepcid Liq) 20 mg BID PEG 08/15/17 21:00 08/15/17 21:10 Morphine Sulfate (Roxanol Liq) 5 mg Q4H PRN PEG PAIN 3-10 08/15/17 11:30 08/16/17 03:22 Objective Remarks GENERAL: Middle aged female, sitting up in bed in nad. SKIN: Warm and dry. HEAD: Normocephalic. EYES: No injection or drainage. NECK: Supple, trachea midline. trach in place. CARDIOVASCULAR: Regular rate and rhythm RESPIRATORY: Breath sounds equal bilaterally. No accessory muscle use. GASTROINTESTINAL: Abdomen soft, PEG tube clamped. EXTREMITIES: No cyanosis NEUROLOGICAL: awake and alert. moving extremities. Assessment/Plan Problem List: (1) Laryngeal cancer ICD Codes: C32.9 - Malignant neoplasm of larynx, unspecified Plan: s/p biopsy in [place] 08/09, pathology showed poorly diff. invasive squamous cell carcinoma. --treatment will be concurrent chemo/radiation. --radiation simulation will be SaturdayAugust 19 (this can be done outpatient or inpatient) History: --started having dysphonia about two months ago. She developed progressive dysphagia and shortness of breath. 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 There was a small left cervical chain lymph node, which could be reactive, but cannot rule out metastatic disease. The mass obstructed the airway and the patient had emergent tracheostomy placement inpatient. 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 h/o tobacco and alcohol use. Borderline diabetes not on any medication. Chronic obstructive pulmonary disease, not previously diagnosed. Hypertension. Plan 1. continue bolus tube feeds. 2. continue supportive care. Attending Statement The exam, history, and the medical decision-making described in the above note were completed with the assistance of the mid-level provider. I reviewed and agree with the findings presented. I attest that I had a [id number] encounter with the patient on the same day, and personally performed and documented my assessment and findings in the medical record. Tolerating tube feeding. Await XRT simulation Saturday. Plan to treat with weekly Cisplatin with XRT but can be done as outpatient if f/u can be set up. Regi Pitts Aug 16, 2017 09:20 Artie Hayward MD Aug 16, 2017 16:31
[2017-08-16] MEDS ORDERED: BISACODYL 10 MG SUPP RECTAL PRN (11:45)
[2017-08-16] MEDS ORDERED: MAGNESIUM HYDROXIDE SUSP 30 ML CUP PO ONE (13:25)
--- NOTE | 2017-08-16 17:24 | HHI.PR ---
Subjective Remarks Patient seen this morning. Says she is feeling all right. Denies any chest pain or shortness of breath. She denies constipation. Objective Vital Signs Date Time Temp Pulse Resp B/P (MAP) Pulse Ox O2 Delivery O2 Flow Rate FiO2 08/16/17 16:00 97.9 95 16 124/92 (103) 98 08/16/17 12:46 T-Piece 4.00 08/16/17 12:44 89 08/16/17 12:00 97.9 86 16 107/69 (82) 97 08/16/17 11:13 97 T-piece 28 08/16/17 08:00 98.3 90 18 122/91 (101) 98 08/16/17 04:53 98.6 93 16 125/95 (105) 98 08/16/17 04:00 90 08/16/17 03:00 92 08/16/17 02:00 88 08/16/17 01:58 98.3 87 16 130/98 (109) 98 08/16/17 01:00 95 08/16/17 00:15 90 08/16/17 00:00 88 08/15/17 23:00 98 08/15/17 22:00 99 08/15/17 21:00 96 T-Piece 4.00 08/15/17 21:00 99.0 101 20 113/87 (96) 96 08/15/17 21:00 101 I/O 08/15/17 08/15/17 08/15/17 08/16/17 08/16/17 08/16/17 07:00 15:00 23:00 07:00 15:00 23:00 Intake Total 700 ml 400 ml 0 ml 1050 ml Output Total 400 ml 350 ml Balance 300 ml 400 ml 0 ml 700 ml Intake Oral 0 ml IV Total 400 ml Tube Feeding 300 ml 300 ml Other 400 ml 750 ml Output Urine Total 400 ml 350 ml # Voids 5 # Bowel Movements 0 Result Diagram: 08/15/1762608/15/17626 Objective Remarks GENERAL: Patient sitting up in bed. Appears comfortable. Exam unchanged. SKIN: Warm and dry. HEAD: Normocephalic. EYES: No scleral icterus. No injection or drainage. NECK: Supple, trachea midline. No JVD. Tracheostomy in place. No surrounding erythema. CARDIOVASCULAR: Regular rate and rhythm without murmurs, gallops, or rubs. RESPIRATORY: Breath sounds equal bilaterally. No accessory muscle use. GASTROINTESTINAL: Abdomen soft, non-tender, nondistended. PEG tube in place without surrounding erythema or leakage. MUSCULOSKELETAL: No cyanosis, or edema. BACK: Nontender without obvious deformity. No CVA tenderness. A/P Assessment and Plan //Laryngeal mass S/p tracheostomy and microlaryngoscopy and biopsy. Oncology/ radiation oncology , ENT and GI following. S/p PEG and port placement. CT chest per oncology noted. Pathology shows poorly differentiated SCCA, P16 negative. - tube feeds. - continue with trach care. - follow up with oncology. Concurrent chemo/ radiation planned. - encourage ambulation. PT. - pain control as needed. = Working on possibly getting home health arranged for tracheostomy care, tube feeding, working out whether she can get cancer treatment as outpatient. Discussed with [facility] team, oncology. =/2. Discussed again at [facility]. Case management working on obtaining home health //HTN Well controlled at this time. - hydralazine as needed. //Low TSH Borderline result. - repeat labs as an outpt. //DVT prophylaxis: SCD's Discharge Planning = Working on possibly getting home health arranged for tracheostomy care, tube feeding, working out whether she can get cancer treatment as outpatient. Discussed with [facility] team, oncology. Travis Echeverria MD Aug 16, 2017 17:24
[2017-08-16] MEDS: CHLORHEXIDINE 0.12% (ORAL KIT) 15 ML CUP MT SCH (20:00)
[2017-08-17] VITALS (30 sets, daily range): BP systolic 100–117; BP diastolic 72–89; PULSE 78–104; RESP 16–18; TEMP 98.5–98.7; O2SAT 94–98
[2017-08-17] MEDS: MORPHINE SULFATE ORAL SOLN 10 MG/0.5 ML SYRINGE PEG PRN ×4 (04:04→20:28)
[2017-08-17] MEDS: CHLORHEXIDINE 0.12% (ORAL KIT) 15 ML CUP MT SCH ×2 (08:00→20:00)
[2017-08-17] MEDS: FAMOTIDINE 40 MG/5 ML LIQ 50 ML BTL PEG SCH ×2 (08:24→20:24)
[2017-08-17] MEDS: REMOVE OLD PATCH T-DERMAL SCH (08:24)
[2017-08-17] MEDS: DOCUSATE SODIUM 50 MG/SENNA 8.6 MG TAB PEG SCH ×2 (08:24→20:27)
[2017-08-17] MEDS: NICOTINE 21 MG/24 HR PATCH T-DERMAL SCH (08:24)
--- NOTE | 2017-08-17 12:43 | HHI.PR ---
Subjective Remarks Patient seen this morning around 7 AM. Says she is feeling all right. She reports constipation. Denies any abdominal pain. Requesting laxatives. Objective Vital Signs Date Time Temp Pulse Resp B/P (MAP) Pulse Ox O2 Delivery O2 Flow Rate FiO2 08/17/17 12:00 93 08/17/17 11:16 98.7 96 18 100/72 (81) 96 08/17/17 11:00 102 08/17/17 10:06 94 T-Piece 4.00 28 08/17/17 10:00 86 08/17/17 09:09 97 T-piece 5.00 28 08/17/17 09:00 90 08/17/17 08:17 98.5 89 18 104/82 (89) 94 08/17/17 08:00 102 08/17/17 07:00 88 08/17/17 06:00 84 08/17/17 05:00 82 08/17/17 04:18 84 16 117/89 (98) 96 08/17/17 04:00 88 08/17/17 03:00 80 08/17/17 02:00 78 08/17/17 01:00 82 08/17/17 00:34 91 16 100/74 (83) 98 08/17/17 00:00 90 08/16/17 23:00 95 08/16/17 22:27 96 T-piece 28 08/16/17 22:00 88 08/16/17 21:00 86 08/16/17 21:00 97 T-Piece 4.00 08/16/17 20:00 94 08/16/17 20:00 98.4 82 16 112/89 (97) 96 08/16/17 19:00 100 08/16/17 16:00 97.9 95 16 124/92 (103) 98 08/16/17 12:46 T-Piece 4.00 08/16/17 12:44 89 I/O 08/16/17 08/16/17 08/16/17 08/17/17 08/17/17 08/17/17 07:00 15:00 23:00 07:00 15:00 23:00 Intake Total 1050 ml 0 ml 550 ml Output Total 350 ml 550 ml Balance 700 ml 0 ml 0 ml Intake Oral 0 ml 0 ml Tube Feeding 300 ml 300 ml Other 750 ml 250 ml Output Urine Total 350 ml 550 ml # Voids 5 # Bowel Movements 0 0 Result Diagram: 08/15/1762608/15/17626 Objective Remarks GENERAL: Patient sitting up in bed. Appears comfortable. Exam again unchanged. SKIN: Warm and dry. HEAD: Normocephalic. EYES: No scleral icterus. No injection or drainage. NECK: Supple, trachea midline. No JVD. Tracheostomy in place. No surrounding erythema. CARDIOVASCULAR: Regular rate and rhythm without murmurs, gallops, or rubs. RESPIRATORY: Breath sounds equal bilaterally. No accessory muscle use. GASTROINTESTINAL: Abdomen soft, non-tender, nondistended. PEG tube in place without surrounding erythema or leakage. MUSCULOSKELETAL: No cyanosis, or edema. BACK: Nontender without obvious deformity. No CVA tenderness. A/P Assessment and Plan //Laryngeal mass S/p tracheostomy and microlaryngoscopy and biopsy. Oncology/ radiation oncology , ENT and GI following. S/p PEG and port placement. CT chest per oncology noted. Pathology shows poorly differentiated SCCA, P16 negative. - tube feeds. - continue with trach care. - follow up with oncology. Concurrent chemo/ radiation planned. - encourage ambulation. PT. - pain control as needed. = Working on possibly getting home health arranged for tracheostomy care, tube feeding, working out whether she can get cancer treatment as outpatient. Discussed with [facility] team, oncology. =08/17. Discussed with nursing patient case coordinator at [facility]. accounting advisory services manager working on home health. //Constipation. Laxatives ordered. Await return of bowel function. //HTN Well controlled at this time. - hydralazine as needed. //Low TSH Borderline result. - repeat labs as an outpt. //DVT prophylaxis: SCD's Discharge Planning = Working on possibly getting home health arranged for tracheostomy care, tube feeding, working out whether she can get cancer treatment as outpatient. Discussed with [facility] team, oncology. Travis Echeverria MD Aug 17, 2017 12:43
[2017-08-17] MEDS ORDERED: MAGNESIUM HYDROXIDE SUSP 30 ML CUP PO ONE (12:45)
[2017-08-17] MEDS ORDERED: DOCUSATE SODIUM 50 MG/SENNA 8.6 MG TAB PO ONE (12:45)
[2017-08-18] VITALS (28 sets, daily range): BP systolic 95–111; BP diastolic 68–83; PULSE 74–96; RESP 18; TEMP 97.3–98.7; O2SAT 96–98
[2017-08-18] MEDS: MORPHINE SULFATE ORAL SOLN 10 MG/0.5 ML SYRINGE PEG PRN ×5 (00:19→19:43)
[2017-08-18] MEDS: CHLORHEXIDINE 0.12% (ORAL KIT) 15 ML CUP MT SCH ×2 (07:20→19:44)
[2017-08-18] MEDS: FAMOTIDINE 40 MG/5 ML LIQ 50 ML BTL PEG SCH ×2 (09:19→19:42)
[2017-08-18] MEDS: DOCUSATE SODIUM 50 MG/SENNA 8.6 MG TAB PEG SCH ×2 (09:19→19:43)
[2017-08-18] MEDS: REMOVE OLD PATCH T-DERMAL SCH (09:19)
[2017-08-18] MEDS: NICOTINE 21 MG/24 HR PATCH T-DERMAL SCH (09:20)
[2017-08-18] MEDS: ACETAMINOPHEN 650 MG/20.3 ML UDC PO PRN ×2 (13:27→19:43)
--- NOTE | 2017-08-18 21:29 | HHI.PR ---
Subjective Remarks Patient seen this morning around 9:30 AM. Says she's feeling right. Denies any chest pain shortness of breath. Reports constipation is resolved. Objective Vital Signs Date Time Temp Pulse Resp B/P (MAP) Pulse Ox O2 Delivery O2 Flow Rate FiO2 08/18/17 19:35 98.6 84 18 106/78 (87) 98 08/18/17 18:04 89 08/18/17 17:16 98 T-piece 6.00 28 08/18/17 17:06 90 08/18/17 16:00 74 08/18/17 15:39 98.7 78 18 96/72 (80) 98 08/18/17 15:00 75 08/18/17 14:00 84 08/18/17 13:00 82 08/18/17 12:00 96 08/18/17 11:40 98 T-Piece 4.00 28 08/18/17 11:37 97.3 89 18 95/68 (77) 97 08/18/17 11:00 88 08/18/17 10:30 98 T-piece 5.00 28 08/18/17 10:00 86 08/18/17 09:00 84 08/18/17 08:55 98.4 87 18 97/75 (82) 96 08/18/17 08:55 96 T-Piece 4.00 28 08/18/17 08:00 76 08/18/17 07:00 95 08/18/17 04:58 98.3 18 103/75 (84) 98 08/18/17 03:00 84 08/18/17 02:00 86 08/18/17 01:00 82 08/18/17 00:17 92 08/18/17 00:13 98.7 84 18 111/83 (92) 98 08/17/17 23:00 94 08/17/17 22:24 95 T-piece 4.00 28 08/17/17 22:00 98 I/O 08/17/17 08/17/17 08/17/17 08/18/17 08/18/17 08/18/17 07:00 15:00 23:00 07:00 15:00 23:00 Intake Total 550 ml 840 ml 800 ml Output Total 550 ml 700 ml Balance 0 ml 840 ml 100 ml Intake Oral 0 ml 840 ml Tube Feeding 300 ml 300 ml Other 250 ml 500 ml Output Urine Total 550 ml 700 ml # Voids 6 8 # Bowel Movements 0 1 1 Result Diagram: 08/15/1727 08/15/17626 Objective Remarks GENERAL: Patient sitting up in bed. Appears comfortable. Exam unchanged. SKIN: Warm and dry. HEAD: Normocephalic. EYES: No scleral icterus. No injection or drainage. NECK: Supple, trachea midline. No JVD. Tracheostomy in place. No surrounding erythema. CARDIOVASCULAR: Regular rate and rhythm without murmurs, gallops, or rubs. RESPIRATORY: Breath sounds equal bilaterally. No accessory muscle use. GASTROINTESTINAL: Abdomen soft, non-tender, nondistended. PEG tube in place without surrounding erythema or leakage. MUSCULOSKELETAL: No cyanosis, or edema. BACK: Nontender without obvious deformity. No CVA tenderness. A/P Assessment and Plan //Laryngeal mass S/p tracheostomy and microlaryngoscopy and biopsy. Oncology/ radiation oncology , ENT and GI following. S/p PEG and port placement. CT chest per oncology noted. Pathology shows poorly differentiated SCCA, P16 negative. - tube feeds. - continue with trach care. - follow up with oncology. Concurrent chemo/ radiation planned. - encourage ambulation. PT. - pain control as needed. = Working on possibly getting home health arranged for tracheostomy care, tube feeding, working out whether she can get cancer treatment as outpatient. Discussed with MDR team, oncology. =3/. 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 Discharge when cleared by oncology. //Constipation. Laxatives ordered. Await return of bowel function. //HTN Well controlled at this time. - hydralazine as needed. //Low TSH Borderline result. - repeat labs as an outpt. //DVT prophylaxis: SCD's Discharge Planning = Working on possibly getting home health arranged for tracheostomy care, tube feeding, working out whether she can get cancer treatment as outpatient. Discussed with MDR team, oncology. Travis Echeverria MD Aug 18, 2017 21:29
[2017-08-19] VITALS (32 sets, daily range): BP systolic 90–114; BP diastolic 68–87; PULSE 76–100; RESP 18–20; TEMP 98.2–98.6; O2SAT 96–99
[2017-08-19] MEDS: MORPHINE SULFATE ORAL SOLN 10 MG/0.5 ML SYRINGE PEG PRN ×5 (00:05→21:01)
[2017-08-19] MEDS: CHLORHEXIDINE 0.12% (ORAL KIT) 15 ML CUP MT SCH ×2 (08:00→19:54)
[2017-08-19] MEDS: DOCUSATE SODIUM 50 MG/SENNA 8.6 MG TAB PEG SCH ×2 (08:03→21:00)
[2017-08-19] MEDS: FAMOTIDINE 40 MG/5 ML LIQ 50 ML BTL PEG SCH ×2 (08:03→21:01)
[2017-08-19] MEDS: NICOTINE 21 MG/24 HR PATCH T-DERMAL SCH (08:04)
[2017-08-19] MEDS: REMOVE OLD PATCH T-DERMAL SCH (09:00)
--- NOTE | 2017-08-19 11:04 | PD.ONC.PN ---
Subjective Subjective Remarks Afebrile overnight. Patient resting in bed in nad. No complaints. tolerating tube feeds. Objective Data Date Time Temp Pulse Resp B/P (MAP) Pulse Ox O2 Delivery O2 Flow Rate FiO2 08/19/17 08:00 93 08/19/17 07:58 98.2 92 18 91/70 (77) 97 08/19/17 06:00 78 08/19/17 05:00 100 08/19/17 04:45 98.5 89 18 100/83 (89) 96 08/19/17 04:10 83 08/19/17 03:00 76 08/19/17 02:00 80 08/19/17 01:00 76 08/19/17 00:04 79 08/19/17 00:03 98.3 78 18 114/87 (96) 99 08/18/17 23:00 94 08/18/17 22:00 80 08/18/17 21:00 88 08/18/17 20:03 83 08/18/17 20:00 98 T-Piece 4.00 28 08/18/17 19:35 98.6 84 18 106/78 (87) 98 08/18/17 18:04 89 08/18/17 17:16 98 T-piece 6.00 28 08/18/17 17:06 90 08/18/17 16:00 74 08/18/17 15:39 98.7 78 18 96/72 (80) 98 08/18/17 15:00 75 08/18/17 14:00 84 08/18/17 13:00 82 08/18/17 12:00 96 08/18/17 11:40 98 T-Piece 4.00 28 08/18/17 11:37 97.3 89 18 95/68 (77) 97 08/19/17 08/19/17 08/19/17 06:59 14:59 22:59 Intake Total 800 ml Output Total 350 ml Balance 450 ml Result Diagram: 08/15/1762608/15/17626 Administered Medications Medications (Trade) Dose Ordered Sig/Kali Route PRN Reason Start Time Stop Time Status Last Admin Dose Admin Sodium Chloride (NS Flush) 2 ml UNSCH PRN IVF FLUSH AFTER USING IV ACCESS 08/07/17 05:30 08/10/17 19:58 Chlorhexidine Gluconate (Peridex 0.12% Liq) 15 ml BID@08,20 MT 08/07/17 20:00 08/14/17 08:00 Nicotine (Habitrol 21 Mg Patch.24 Hr) 1 patch DAILY T-DERMAL 08/08/17 09:00 08/19/17 08:04 Miscellaneous Information 1 DAILY T-DERMAL 08/08/17 09:00 08/18/17 09:19 Alprazolam (Xanax) 0.25 mg Q4H PRN PO anxiety 08/10/17 18:15 08/10/17 19:57 Hydralazine HCl (Apresoline) 25 mg Q6H PRN PO SBP > 160, DBP > 90 08/10/17 18:15 08/14/17 20:58 Senna/Docusate Sodium (Loreta-Colace) 1 tab BID PEG 08/14/17 10:45 08/19/17 08:03 Famotidine (Pepcid Liq) 20 mg BID PEG 08/15/17 21:00 08/19/17 08:03 Acetaminophen (Tylenol 650 Mg/ 20 ml Liq) 650 mg Q4H PRN PO PAIN 1-2 OR HEADACHE 08/15/17 11:45 08/18/17 19:43 Bisacodyl (Dulcolax Supp) 10 mg DAILY PRN RECTAL CONSTIPATION 08/16/17 11:45 08/17/17 13:14 Morphine Sulfate (Roxanol Liq) 7.5 mg Q4H PRN PEG PAIN 3-10 08/18/17 11:30 08/19/17 04:49 Objective Remarks GENERAL: Middle aged female, upright in bed in [facility]. SKIN: Warm and dry. HEAD: Normocephalic. EYES: No injection or drainage. NECK: Supple, trachea midline. trach in place CARDIOVASCULAR: Regular rate and rhythm RESPIRATORY: Breath sounds equal bilaterally. No accessory muscle use. GASTROINTESTINAL: Abdomen soft, PEG tube clamped. EXTREMITIES: No cyanosis NEUROLOGICAL: no obvious focal deficit. Assessment/Plan Problem List: (1) Laryngeal cancer ICD Codes: C32.9 - Malignant neoplasm of larynx, unspecified Plan: s/p biopsy in OR 08/09, pathology showed poorly diff. invasive squamous cell carcinoma. --treatment will be concurrent chemo/radiation. --radiation simulation will be SaturdayAugust 19 History: --started having dysphonia about two months ago. She developed progressive dysphagia and shortness of breath. 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 There was a small left cervical chain lymph node, which could be reactive, but cannot rule out metastatic disease. The mass obstructed the airway and the patient had emergent tracheostomy placement inpatient. 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 h/o tobacco and alcohol use. Borderline diabetes not on any medication. Chronic obstructive pulmonary disease, not previously diagnosed. Hypertension. Plan 1. continue bolus tube feeds. 2. continue supportive care. 3. can be discharged once home arrangements set up. Attending Statement The exam, history, and the medical decision-making described in the above note were completed with the assistance of the mid-level provider. I reviewed and agree with the findings presented. I attest that I had a [id number] encounter with the patient on the same day, and personally performed and documented my assessment and findings in the medical record. No neck pain. Supposed to have XRt simulation today. Plan to give her weekly Cisplatin with XRT. Can be d/c once outpatient f/u can be arranged. Regi Pitts Aug 19, 2017 11:04 Artie Hayward MD Aug 19, 2017 15:25
--- NOTE | 2017-08-19 12:18 | HHI.PR ---
Subjective Remarks Follow-up for laryngeal cancer status post trach and PEG Patient has no complaints. She is tolerating her feeds. She is not able to speak but does make gestures. She nodded her head no when I asked her if she has any concerns. She denies any shortness of breathing or pain. No acute events overnight. Objective Vitals Vital Signs Date Time Temp Pulse Resp B/P (MAP) Pulse Ox O2 Delivery O2 Flow Rate FiO2 08/19/17 12:01 86 08/19/17 11:10 98.6 85 20 93/70 (78) 97 08/19/17 11:00 86 08/19/17 10:00 88 08/19/17 09:00 86 08/19/17 08:00 T-Piece 6.00 28 08/19/17 08:00 93 08/19/17 07:58 98.2 92 18 91/70 (77) 97 08/19/17 07:45 98 T-piece 6.00 08/19/17 07:00 78 08/19/17 06:00 78 08/19/17 05:00 100 08/19/17 04:45 98.5 89 18 100/83 (89) 96 08/19/17 04:10 83 08/19/17 03:00 76 08/19/17 02:00 80 08/19/17 01:00 76 08/19/17 00:04 79 08/19/17 00:03 98.3 78 18 114/87 (96) 99 08/18/17 23:00 94 08/18/17 22:00 80 08/18/17 21:00 88 08/18/17 20:03 83 08/18/17 20:00 98 T-Piece 4.00 28 08/18/17 19:35 98.6 84 18 106/78 (87) 98 08/18/17 18:04 89 08/18/17 17:16 98 T-piece 6.00 28 08/18/17 17:06 90 08/18/17 16:00 74 08/18/17 15:39 98.7 78 18 96/72 (80) 98 08/18/17 15:00 75 08/18/17 14:00 84 08/18/17 13:00 82 I/O 08/18/17 08/18/17 08/18/17 08/19/1718 3/5/18 07:00 15:00 23:00 07:00 15:00 23:00 Intake Total 800 ml 800 ml Output Total 700 ml 350 ml Balance 100 ml 450 ml Tube Feeding 300 ml 300 ml Other 500 ml 500 ml Output Urine Total 700 ml 350 ml # Voids 8 3 # Bowel Movements 1 Result Diagram: 08/15/1762608/15/17626 Objective Remarks GENERAL: in NAD NECK: Supple, trachea midline. No JVD or lymphadenopathy. Trach in place. CARDIOVASCULAR: Regular rate and rhythm without murmurs, gallops, or rubs. RESPIRATORY: Bilateral intermittent rhonchi. No accessory muscle use. GASTROINTESTINAL: Abdomen soft, non-tender, nondistended. MUSCULOSKELETAL: No cyanosis, or edema. BACK: Nontender without obvious deformity. No CVA tenderness. Procedures Tracheostomy/ Microlaryngoscopy and biopsy PEG tube/ Port placement Medications and IVs Current Medications Sodium Chloride (NS Flush) 2 ml UNSCH PRN IVF FLUSH AFTER USING IV ACCESS Last administered on 08/10/17at 19:58; Start 08/07/17 at 05:30 Dexamethasone Sodium Phosphate (Decadron Inj) 10 mg ONCE ONCE IM ; Start at 05:30; Stop 08/07/17 at 05:31; Status Cancel Dexamethasone Sodium Phosphate (Decadron Inj) 4 mg ONCE ONCE OTHER Last administered on 08/07/17at 05:41; Start 08/07/17 at 05:30; Stop 08/07/17 at 05:31 ; Status DC Lidocaine HCl (Lidocaine Pf 4% Neb) 1 ml ONCE ONCE NEB Last administered on at 05:30; Start 08/07/17 at 05:30; Stop 08/07/17 at 05:31; Status DC Hydralazine HCl (Apresoline Inj) 10 mg ONCE ONCE IV PUSH Last administered on 08/07/17at 05:44; Start 08/07/17 at 05:45; Stop 08/07/17 at 05:46; Status DC Dexamethasone Sodium Phosphate (Decadron Inj) 10 mg ONCE ONCE IV PUSH Last administered on 08/07/17at 05:46; Start 08/07/17 at 05:45; Stop 08/07/17 at 05:46 ; Status DC Iohexol (Omnipaque 350 Inj) 72 ml STK-MED ONCE IVCONTRAST Last administered on 08/07/17at 06:41; Start 08/07/17 at 06:41; Stop 08/07/17 at 06:42; Status DC Ondansetron HCl (Zofran Inj) 4 mg Q8HR PRN IV PUSH NAUSEA; Start 08/07/17 at 07 :45; Stop 08/15/17 at 11:24; Status DC Sodium Chloride 1,000 ml @ 100 mls/hr Q10H IV Last administered on 08/07/17at 08:12; Start 08/07/17 at 07:45; Stop 08/07/17 at 09:14; Status DC Albuterol Sulfate (Albuterol Neb) 1.25 mg Q4HR NEB PRN NEB SHORTNESS OF BREATH ; Start 08/07/17 at 07:45 Sodium Chloride 1,000 ml @ 84 mls/hr [id number] IV Last administered on 08/15/17at 09:30; Start 08/07/17 at 09:00; Stop 08/15/17 at 11:15; Status DC Morphine Sulfate (Morphine Inj) 2 mg Q2H PRN IV PUSH PAIN SCALE 6 TO 10; Start 08/07/17 at 09:30; Stop 08/07/17 at 12:19; Status DC Famotidine (Pepcid Inj) 20 mg Q12HR IV PUSH Last administered on 08/15/17at 09:30 ; Start 08/07/17 at 21:00; Stop 08/15/17 at 11:24; Status DC Ondansetron HCl (Zofran Inj) 4 mg Q6H PRN IV PUSH NAUSEA OR VOMITING Last administered on 08/12/17at 19:48; Start 08/07/17 at 09:15; Stop 08/15/17 at 11:24 ; Status DC Albuterol/ Ipratropium (Duoneb Neb) 1 ampule Q2HR NEB PRN INH WHEEZING; Start 08/07/17 at 09:15 Miscellaneous Information 1 [id number] Last administered on 08/07/17at 09:15; Start 08/07/17 at 09:15; Stop 08/12/17 at 21:50; Status DC Chlorhexidine Gluconate (Chlorhexidine 2% Cloth) 3 pack Taper DAILY@04 TOP Last administered on 08/12/17at 04:00; Start 08/08/17 at 04:00; Stop 08/12/17 at 21:50; Status DC Chlorhexidine Gluconate (Chlorhexidine 2% Cloth) 3 pack UNSCH PRN TOP HYGIENIC CARE; Start 08/07/17 at 09:15; Stop 08/12/17 at 21:50; Status DC Dexamethasone Sodium Phosphate (Decadron Inj) 6 mg Q6HR IV PUSH Last administered on 08/07/17at 12:00; Start 08/07/17 at 12:00; Stop 08/07/17 at 13:31 ; Status DC Midazolam HCl (Versed Inj) 10 mg ONCE ONCE IV PUSH Last administered on at 10:30; Start 08/07/17 at 10:30; Stop 08/07/17 at 10:31; Status DC Fentanyl Citrate (fentaNYL INJ) 250 mcg ONCE ONCE IV PUSH Last administered on 08/07/17at 10:30; Start 08/07/17 at 10:30; Stop 08/07/17 at 10:31; Status DC Ketamine HCl (Ketalar Inj) 100 mg STAT ONCE IV PUSH Last administered on at 11:00; Start 08/07/17 at 11:00; Stop 08/07/17 at 11:01; Status DC Midazolam HCl (Versed Inj) 10 mg STK-MED ONCE .ROUTE ; Start 08/07/17 at 10:35; Stop 08/07/17 at 10:36; Status DC Racepinephrine (Racepinephrine 2.25% Neb) 0.5 ml STK-MED ONCE .ROUTE Last administered on 08/07/17at 10:59; Start 08/07/17 at 10:59; Stop 08/07/17 at 11:00 ; Status DC Succinylcholine Chloride (Quelicin Inj) 200 mg STK-MED ONCE .ROUTE ; Start 08/07 at 11:02; Stop 08/07/17 at 11:03; Status DC Propofol 50 ml @ As Directed STK-MED ONCE .ROUTE Last administered on at 11:14; Start 08/07/17 at 11:14; Stop 08/07/17 at 11:15; Status DC Chlorhexidine Gluconate (Peridex 0.12% Liq) 15 ml BID@08,20 MT Last administered on 08/14/17 08:00; Start 08/07/17 at 20:00 Propofol 100 ml @ 1.71 mls/hr TITRATE PRN IV SEDATION Last administered on at 14:00; Start 08/07/17 at 11:45; Stop 08/12/17 at 21:50; Status DC Fentanyl Citrate 250 ml @ 5 mls/hr TITRATE PRN IV SEDATION Last administered on 08/07/17at 18:03; Start 08/07/17 at 11:45; Stop 08/12/17 at 21:50; Status DC Morphine Sulfate (Morphine Inj) 2 mg Q3H PRN IV PUSH breakthrough pain Last administered on 08/15/17 04:49; Start 08/07/17 at 11:45; Stop 08/15/17 at 11:24; Status DC Nicotine (Habitrol 21 Mg Patch.24 Hr) 1 patch DAILY T-DERMAL Last administered on 08/19/17 08:04; Start 08/08/17 at 09:00 Miscellaneous Information 1 DAILY T-DERMAL Last administered on 08/19/17 09:00 ; Start 08/08/17 at 09:00 Lorazepam (Ativan Inj) 1 mg Q6H PRN IV anxiety or agitation Last administered on 08/10/17 14:30; Start 08/08/17 at 07:30; Stop 08/14/17 at 12:15; Status DC Fentanyl Citrate (fentaNYL INJ) 100 mcg STK-MED ONCE .ROUTE ; Start 08/09/17 at 12:47; Stop 08/09/17 at 12:48; Status DC Miscellaneous Information ALL NURSING DEPARTME... UNSCH PRN .XX SEE LABEL COMMENTS; Start 08/09/17 at 12:42; Stop 08/10/17 at 12:41; Status DC Acetaminophen/ Hydrocodone Bitart ([place] 5-325 Mg) 1 tab Q4H PRN PO pain 5-10 Last administered on 08/14/17 09:53; Start 08/10/17 at 18:15; Stop 08/14/17 at 12:23; Status DC Alprazolam (Xanax) 0.25 mg Q4H PRN PO anxiety Last administered on 08/10/17at 19 :57; Start 08/10/17 at 18:15 Morphine Sulfate (Morphine Inj) 2 mg Q1H PRN IV PUSH Pain 6-10 Last administered on 08/12/17at 19:49; Start 08/10/17 at 18:15; Stop 08/14/17 at 12:15 ; Status DC Hydralazine HCl (Apresoline) 25 mg Q6H PRN PO SBP > 160, DBP > 90 Last administered on 08/14/17at 20:58; Start 08/10/17 at 18:15 Cefazolin Sodium/ Dextrose 50 ml @ 100 mls/hr TUB ATTENDANT IV ; Start 08/12/17 at 09:45; Stop 08/14/17 at 12:24; Status DC Vancomycin HCl 1000 mg/Sodium Chloride 250 ml @ 250 mls/hr TUB ATTENDANT IV Last administered on 08/12/17at 12:43; Start 08/12/17 at 11:00; Stop 08/15/17 at 11:15 ; Status DC Cefazolin Sodium/ Dextrose 50 ml @ 100 mls/hr TUB ATTENDANT IV Last administered on 08/12/17at 11:31; Start 08/12/17 at 11:00; Stop 08/15/17 at 11:15; Status DC Lidocaine HCl (Xylocaine-Mpf 1% Inj) 5 ml STK-MED ONCE OTHER ; Start 08/09/17 at 12:00; Stop 08/12/17 at 10:22; Status DC Ephedrine Sulfate (ePHEDrine/NS 25 MG/5 ML SYR) 25 mg STK-MED ONCE IV ; Start at 12:00; Stop 08/12/17 at 10:22; Status DC Propofol (Diprivan 200 Mg/20 ml Inj) 400 mg STK-MED ONCE IV ; Start 08/09/17 at 12:00; Stop 08/12/17 at 10:22; Status DC Fentanyl Citrate (fentaNYL INJ) 100 mcg STK-MED ONCE .ROUTE Last administered on 08/12/17at 12:14; Start 08/12/17 at 12:14; Stop 08/12/17 at 12:15; Status DC Midazolam HCl (Versed Inj) 2 mg STK-MED ONCE .ROUTE Last administered on at 12:14; Start 08/12/17 at 12:14; Stop 08/12/17 at 12:15; Status DC Heparin Sodium (Porcine) (*HEPARIN CENTRAL FLUSH PERIprocedural ONLY) 500 units STK-MED ONCE IV FLUSH Last administered on 08/12/17at 12:24; Start 08/12/17 at 12:24; Stop 08/12/17 at 12:25; Status DC Fentanyl Citrate (fentaNYL INJ) 100 mcg STK-MED ONCE .ROUTE Last administered on 08/12/17at 12:46; Start 08/12/17 at 12:46; Stop 08/12/17 at 12:47; Status DC Midazolam HCl (Versed Inj) 2 mg STK-MED ONCE .ROUTE Last administered on at 12:46; Start 08/12/17 at 12:46; Stop 08/12/17 at 12:47; Status DC Heparin Sodium (Porcine) (Heparin Central Flush) 500 units UNSCH IV FLUSH ; Start 08/12/17 at 13:30 Sodium Chloride (NS Flush) 5 ml UNSCH PRN IVF SEE PROTOCOL; Start 08/12/17 at 13:30 Heparin Sodium (Porcine) (Heparin Central Flush) 250 units UNSCH PRN IV FLUSH SEE PROTOCOL; Start 08/12/17 at 13:30 Iohexol (Omnipaque 350 Inj) 69 ml STK-MED ONCE IVCONTRAST Last administered on 08/13/17at 10:06; Start 08/13/17 at 10:06; Stop 08/13/17 at 10:07; Status DC Propofol (Diprivan 200 Mg/20 ml Inj) 400 mg STK-MED ONCE IV ; Start 08/12/17 at 12:00; Stop 08/13/17 at 10:19; Status DC Lidocaine HCl (Xylocaine-Mpf 1% Inj) 5 ml STK-MED ONCE OTHER ; Start 08/12/17 at 12:00; Stop 08/13/17 at 10:19; Status DC Metoclopramide HCl (Reglan Inj) 5 mg ONCE ONCE IV PUSH Last administered on at 03:18; Start 08/14/17 at 02:30; Stop 08/14/17 at 02:31; Status DC Senna/Docusate Sodium (Loreta-Colace) 1 tab BID PEG Last administered on at 08:03; Start 08/14/17 at 10:45 Oxycodone HCl (Roxicodone) 5 mg Q4H PRN PO pain 3-10 Last administered on at 20:59; Start 08/14/17 at 12:15; Stop 08/15/17 at 11:33; Status DC Ondansetron HCl (Zofran Odt) 4 mg Q4H PRN PO nausea; Start 08/15/17 at 11:30 Famotidine (Pepcid Liq) 20 mg BID PEG Last administered on 08/19/17at 08:03; Start 08/15/17 at 21:00 Morphine Sulfate (Roxanol Liq) 5 mg Q4H PRN PEG PAIN 3-10 Last administered on 08/18/17at 09:20; Start 08/15/17 at 11:30; Stop 08/18/17 at 10:48; Status DC Acetaminophen (Tylenol 650 Mg/ 20 ml Liq) 650 mg Q4H PRN PO PAIN 1-2 OR HEADACHE Last administered on 08/18/17at 19:43; Start 08/15/17 at 11:45 Bisacodyl (Dulcolax Supp) 10 mg DAILY PRN RECTAL CONSTIPATION Last administered on 08/17/17at 13:14; Start 08/16/17 at 11:45 Magnesium Hydroxide (Milk Of Magnesia Liq) 30 ml ONCE ONCE PO Last administered on 08/16/17at 13:25; Start 08/16/17 at 13:25; Stop 08/16/17 at 13:27; Status DC Senna/Docusate Sodium (Loreta-Colace) 2 tab ONCE ONCE PO ; Start 08/17/17 at 12:45 ; Stop 08/17/17 at 13:04; Status DC Magnesium Hydroxide (Milk Of Magnesia Liq) 30 ml ONCE ONCE PO ; Start 08/17/17 at 12:45; Stop 08/17/17 at 13:04; Status DC Morphine Sulfate (Roxanol Liq) 7.5 mg Q4H PRN PEG PAIN 3-10 Last administered on 08/19/17at 11:04; Start 08/18/17 at 11:30 A/P Problem List: (1) Acute airway obstruction ICD Code: J98.8 - Other specified respiratory disorders (2) Laryngeal mass ICD Code: J38.7 - Other diseases of larynx Status: Acute (3) Stridor ICD Code: R06.1 - Stridor Status: Acute Assessment and Plan Laryngeal mass -S/p tracheostomy and microlaryngoscopy and biopsy. Oncology/ radiation oncology, ENT and GI following. S/p PEG and port placement. CT chest per oncology noted. Pathology shows poorly differentiated SCCA, P16 negative. -Patient on bolus feed. - continue with trach care. - follow up with oncology. Concurrent chemo/ radiation planned. - encourage ambulation. PT. - pain control as needed Constipation. - Laxatives ordered. Await return of bowel function. HTN -Well controlled at this time. - hydralazine as needed. Low TSH Borderline result. - repeat labs as an outpt. DVT prophylaxis: SCD's Discharge Planning Patient can be discharged once home health to set up for trach and PEG management. Sandra Montano MD Aug 19, 2017 12:17
[2017-08-19] MEDS: ACETAMINOPHEN 650 MG/20.3 ML UDC PO PRN (15:41)
[2017-08-20] VITALS (24 sets, daily range): BP systolic 91–99; BP diastolic 68–74; PULSE 71–105; RESP 16–20; TEMP 97.2–98.6; O2SAT 94–98
[2017-08-20] MEDS: MORPHINE SULFATE ORAL SOLN 10 MG/0.5 ML SYRINGE PEG PRN ×4 (04:07→21:12)
[2017-08-20] MEDS: ALPRAZolam 0.25 MG TAB PO PRN (04:09)
[2017-08-20] MEDS: CHLORHEXIDINE 0.12% (ORAL KIT) 15 ML CUP MT SCH ×2 (08:00→19:54)
[2017-08-20] MEDS: REMOVE OLD PATCH T-DERMAL SCH (09:00)
[2017-08-20] MEDS: NICOTINE 21 MG/24 HR PATCH T-DERMAL SCH (09:24)
[2017-08-20] MEDS: FAMOTIDINE 40 MG/5 ML LIQ 50 ML BTL PEG SCH ×2 (09:24→21:11)
[2017-08-20] MEDS: DOCUSATE SODIUM 50 MG/SENNA 8.6 MG TAB PEG SCH ×2 (09:24→21:11)
[2017-08-20] MEDS ORDERED: med PEG (10:03)
--- NOTE | 2017-08-20 10:11 | PD.ONC.PN ---
Subjective Subjective Remarks Afebrile overnight. Patient resting in bed in nad. Wanting to go home. tolerating tube feeds. wants to know when she can have trach capped. Objective Data Date Time Temp Pulse Resp B/P (MAP) Pulse Ox O2 Delivery O2 Flow Rate FiO2 08/20/17 09:20 98.3 78 18 92/69 (77) 98 08/20/17 06:20 96 T-piece 6.00 28 08/20/17 06:00 80 08/20/17 05:07 16 08/20/17 05:00 72 08/20/17 04:12 98.3 71 16 96/71 (79) 96 08/20/17 04:03 79 08/20/17 03:00 78 08/20/17 02:00 72 08/20/17 01:00 74 08/20/17 00:09 76 08/19/17 23:58 98.6 85 18 104/74 (84) 98 08/19/17 23:00 78 08/19/17 22:00 78 08/19/17 21:00 84 08/19/17 21:00 T-Piece 6.00 28 08/19/17 20:59 98.6 82 18 105/75 (85) 97 08/19/17 20:26 76 08/19/17 19:00 82 08/19/17 18:00 98 08/19/17 17:00 88 08/19/17 16:04 98.4 86 18 90/68 (75) 99 101/75 (84) 08/19/17 16:00 87 08/19/17 15:00 82 08/19/17 15:00 87 08/19/17 14:00 82 08/19/17 13:00 80 08/19/17 12:01 86 08/19/17 11:10 98.6 85 20 93/70 (78) 97 08/19/17 11:00 86 08/20/17 08/20/17 08/20/17 07:00 15:00 23:00 Intake Total 820 ml Balance 820 ml Administered Medications Medications (Trade) Dose Ordered Sig/Kali Route PRN Reason Start Time Stop Time Status Last Admin Dose Admin Sodium Chloride (NS Flush) 2 ml UNSCH PRN IVF FLUSH AFTER USING IV ACCESS 08/07/17 05:30 08/10/17 19:58 Chlorhexidine Gluconate (Peridex 0.12% Liq) 15 ml BID@08,20 MT 08/07/17 20:00 08/14/17 08:00 Nicotine (Habitrol 21 Mg Patch.24 Hr) 1 patch DAILY T-DERMAL 08/08/17 09:00 08/20/17 09:24 Miscellaneous Information 1 DAILY T-DERMAL 08/08/17 09:00 08/20/17 09:00 Alprazolam (Xanax) 0.25 mg Q4H PRN PO anxiety 08/10/17 18:15 08/20/17 04:09 Hydralazine HCl (Apresoline) 25 mg Q6H PRN PO SBP > 160, DBP > 90 08/10/17 18:15 08/14/17 20:58 Senna/Docusate Sodium (Loreta-Colace) 1 tab BID PEG 08/14/17 10:45 08/20/17 09:24 Famotidine (Pepcid Liq) 20 mg BID PEG 08/15/17 21:00 08/20/17 09:24 Acetaminophen (Tylenol 650 Mg/ 20 ml Liq) 650 mg Q4H PRN PO PAIN 1-2 08/15/17 11:45 08/19/17 15:41 Bisacodyl (Dulcolax Supp) 10 mg DAILY PRN RECTAL CONSTIPATION 08/16/17 11:45 08/17/17 13:14 Morphine Sulfate (Roxanol Liq) 7.5 mg Q4H PRN PEG PAIN 3-10 08/18/17 11:30 08/20/17 09:49 Objective Remarks GENERAL: Middle aged female, sitting up in bed in [place]. SKIN: Warm and dry. HEAD: Normocephalic. EYES: No injection or drainage. NECK: Supple, trachea midline. trach in place CARDIOVASCULAR: Regular rate and rhythm RESPIRATORY: Breath sounds equal bilaterally. No accessory muscle use. GASTROINTESTINAL: Abdomen soft, PEG tube clamped. EXTREMITIES: No cyanosis NEUROLOGICAL: no obvious focal deficit. Assessment/Plan Problem List: (1) Laryngeal cancer ICD Codes: C32.9 - Malignant neoplasm of larynx, unspecified Plan: s/p biopsy in OR 08/09, pathology showed poorly diff. invasive squamous cell carcinoma. --treatment will be concurrent chemo/radiation--plan to start week of 08/26 --s/p radiation simulation 08/19 History: --started having dysphonia about two months ago. She developed progressive dysphagia and shortness of breath. 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 There was a small left cervical chain lymph node, which could be reactive, but cannot rule out metastatic disease. The mass obstructed the airway and the patient had emergent tracheostomy placement inpatient. 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 h/o tobacco and alcohol use. Borderline diabetes not on any medication. Chronic obstructive pulmonary disease, not previously diagnosed. Hypertension. Plan 1. rx written for bolus tube feeds at home. 2. clear for discharge. 3. face sheet faxed to new patient referrals for follow up with Dr. Hayward in one week. Attending Statement The exam, history, and the medical decision-making described in the above note were completed with the assistance of the mid-level provider. I reviewed and agree with the findings presented. I attest that I had a [id number] encounter with the patient on the same day, and personally performed and documented my assessment and findings in the medical record. Had simulation yesterday. Tolerating tube feeding. If discharge, she can f/u oncology clinic to start tretment. Regi Pitts Aug 20, 2017 10:11 Artie Hayward MD Aug 20, 2017 17:43
--- NOTE | 2017-08-20 10:39 | HHI.PR ---
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 Patient denies any shortness of breathing or cough. She has minimal mucus suctioning. Her nurses at the bedside during the interview. Patient very anxious to go home. She stated that her daughter is a nurse so she is able to help with her home care. No other events overnight. Discussed case with patient nurse to wean off of oxygen. Per Kimberlee No during MDR meeting patient will need trach for the duration of her treatment which is at least 6 weeks. Objective Vitals Vital Signs Date Time Temp Pulse Resp B/P (MAP) Pulse Ox O2 Delivery O2 Flow Rate FiO2 08/20/17 09:20 98.3 78 18 92/69 (77) 98 08/20/17 09:00 T-Piece 4.00 28 08/20/17 06:20 96 T-piece 6.00 28 08/20/17 06:00 80 08/20/17 05:07 16 08/20/17 05:00 72 08/20/17 04:12 98.3 71 16 96/71 (79) 96 08/20/17 04:03 79 08/20/17 03:00 78 08/20/17 02:00 72 08/20/17 01:00 74 08/20/17 00:09 76 08/19/17 23:58 98.6 85 18 104/74 (84) 98 08/19/17 23:00 78 08/19/17 22:00 78 08/19/17 21:00 84 08/19/17 21:00 T-Piece 6.00 28 08/19/17 20:59 98.6 82 18 105/75 (85) 97 08/19/17 20:26 76 08/19/17 19:00 82 08/19/17 18:00 98 08/19/17 17:00 88 08/19/17 16:04 98.4 86 18 90/68 (75) 99 101/75 (84) 08/19/17 16:00 87 08/19/17 15:00 82 08/19/17 15:00 87 08/19/17 14:00 82 08/19/17 13:00 80 08/19/17 12:01 86 08/19/17 11:10 98.6 85 20 93/70 (78) 97 08/19/17 11:00 86 I/O 08/19/17 08/19/17 08/19/17 08/20/17 08/20/17 08/20/17 07:00 15:00 23:00 07:00 15:00 23:00 Intake Total 800 ml 820 ml Output Total 350 ml 600 ml Balance 450 ml -600 ml 820 ml Tube Feeding 300 ml 300 ml Other 500 ml 520 ml Output Urine Total 350 ml 600 ml # Voids 3 Objective Remarks GENERAL: in NAD NECK: Supple, trachea midline. No JVD or lymphadenopathy. Trach in place. CARDIOVASCULAR: Regular rate and rhythm without murmurs, gallops, or rubs. RESPIRATORY: Bilateral intermittent rhonchi. No accessory muscle use. GASTROINTESTINAL: Abdomen soft, non-tender, nondistended. MUSCULOSKELETAL: No cyanosis, or edema. BACK: Nontender without obvious deformity. No CVA tenderness. Procedures Tracheostomy/ Microlaryngoscopy and biopsy PEG tube/ Port placement Medications and IVs Current Medications Sodium Chloride (NS Flush) 2 ml UNSCH PRN IVF FLUSH AFTER USING IV ACCESS Last administered on 08/10/17at 19:58; Start 08/07/17 at 05:30 Dexamethasone Sodium Phosphate (Decadron Inj) 10 mg ONCE ONCE IM ; Start at 05:30; Stop 08/07/17 at 05:31; Status Cancel Dexamethasone Sodium Phosphate (Decadron Inj) 4 mg ONCE ONCE OTHER Last administered on 08/07/17at 05:41; Start 08/07/17 at 05:30; Stop 08/07/17 at 05:31 ; Status DC Lidocaine HCl (Lidocaine Pf 4% Neb) 1 ml ONCE ONCE NEB Last administered on at 05:30; Start 08/07/17 at 05:30; Stop 08/07/17 at 05:31; Status DC Hydralazine HCl (Apresoline Inj) 10 mg ONCE ONCE IV PUSH Last administered on 08/07/17at 05:44; Start 08/07/17 at 05:45; Stop 08/07/17 at 05:46; Status DC Dexamethasone Sodium Phosphate (Decadron Inj) 10 mg ONCE ONCE IV PUSH Last administered on 08/07/17at 05:46; Start 08/07/17 at 05:45; Stop 08/07/17 at 05:46 ; Status DC Iohexol (Omnipaque 350 Inj) 72 ml STK-MED ONCE IVCONTRAST Last administered on 08/07/17at 06:41; Start 08/07/17 at 06:41; Stop 08/07/17 at 06:42; Status DC Ondansetron HCl (Zofran Inj) 4 mg Q8HR PRN IV PUSH NAUSEA; Start 08/07/17 at 07 :45; Stop 08/15/17 at 11:24; Status DC Sodium Chloride 1,000 ml @ 100 mls/hr Q10H IV Last administered on 08/07/17at 08:12; Start 08/07/17 at 07:45; Stop 08/07/17 at 09:14; Status DC Albuterol Sulfate (Albuterol Neb) 1.25 mg Q4HR NEB PRN NEB SHORTNESS OF BREATH ; Start 08/07/17 at 07:45 Sodium Chloride 1,000 ml @ 84 mls/hr [id number] IV Last administered on 08/15/17at 09:30; Start 08/07/17 at 09:00; Stop 08/15/17 at 11:15; Status DC Morphine Sulfate (Morphine Inj) 2 mg Q2H PRN IV PUSH PAIN SCALE 6 TO 10; Start 08/07/17 at 09:30; Stop 08/07/17 at 12:19; Status DC Famotidine (Pepcid Inj) 20 mg Q12HR IV PUSH Last administered on 08/15/17at 09:30 ; Start 08/07/17 at 21:00; Stop 08/15/17 at 11:24; Status DC Ondansetron HCl (Zofran Inj) 4 mg Q6H PRN IV PUSH NAUSEA OR VOMITING Last administered on 08/12/17at 19:48; Start 08/07/17 at 09:15; Stop 08/15/17 at 11:24 ; Status DC Albuterol/ Ipratropium (Duoneb Neb) 1 ampule Q2HR NEB PRN INH WHEEZING; Start 08/07/17 at 09:15 Miscellaneous Information 1 [id number] Last administered on 08/07/17at 09:15; Start 08/07/17 at 09:15; Stop 08/12/17 at 21:50; Status DC Chlorhexidine Gluconate (Chlorhexidine 2% Cloth) 3 pack Taper DAILY@04 TOP Last administered on 08/12/17at 04:00; Start 08/08/17 at 04:00; Stop 08/12/17 at 21:50; Status DC Chlorhexidine Gluconate (Chlorhexidine 2% Cloth) 3 pack UNSCH PRN TOP HYGIENIC CARE; Start 08/07/17 at 09:15; Stop 08/12/17 at 21:50; Status DC Dexamethasone Sodium Phosphate (Decadron Inj) 6 mg Q6HR IV PUSH Last administered on 08/07/17at 12:00; Start 08/07/17 at 12:00; Stop 08/07/17 at 13:31 ; Status DC Midazolam HCl (Versed Inj) 10 mg ONCE ONCE IV PUSH Last administered on at 10:30; Start 08/07/17 at 10:30; Stop 08/07/17 at 10:31; Status DC Fentanyl Citrate (fentaNYL INJ) 250 mcg ONCE ONCE IV PUSH Last administered on 08/07/17at 10:30; Start 08/07/17 at 10:30; Stop 08/07/17 at 10:31; Status DC Ketamine HCl (Ketalar Inj) 100 mg STAT ONCE IV PUSH Last administered on at 11:00; Start 08/07/17 at 11:00; Stop 08/07/17 at 11:01; Status DC Midazolam HCl (Versed Inj) 10 mg STK-MED ONCE .ROUTE ; Start 08/07/17 at 10:35; Stop 08/07/17 at 10:36; Status DC Racepinephrine (Racepinephrine 2.25% Neb) 0.5 ml STK-MED ONCE .ROUTE Last administered on 08/07/17at 10:59; Start 08/07/17 at 10:59; Stop 08/07/17 at 11:00 ; Status DC Succinylcholine Chloride (Quelicin Inj) 200 mg STK-MED ONCE .ROUTE ; Start 08/07 at 11:02; Stop 08/07/17 at 11:03; Status DC Propofol 50 ml @ As Directed STK-MED ONCE .ROUTE Last administered on at 11:14; Start 08/07/17 at 11:14; Stop 08/07/17 at 11:15; Status DC Chlorhexidine Gluconate (Peridex 0.12% Liq) 15 ml BID@08,20 MT Last administered on 08/14/17at 08:00; Start 08/07/17 at 20:00 Propofol 100 ml @ 1.71 mls/hr TITRATE PRN IV SEDATION Last administered on at 14:00; Start 08/07/17 at 11:45; Stop 08/12/17 at 21:50; Status DC Fentanyl Citrate 250 ml @ 5 mls/hr TITRATE PRN IV SEDATION Last administered on 08/07/17 18:03; Start 08/07/17 at 11:45; Stop 08/12/17 at 21:50; Status DC Morphine Sulfate (Morphine Inj) 2 mg Q3H PRN IV PUSH breakthrough pain Last administered on 08/15/17 04:49; Start 08/07/17 at 11:45; Stop 08/15/17 at 11:24; Status DC Nicotine (Habitrol 21 Mg Patch.24 Hr) 1 patch DAILY T-DERMAL Last administered on 08/20/17 09:24; Start 08/08/17 at 09:00 Miscellaneous Information 1 DAILY T-DERMAL Last administered on 08/20/17 09:00 ; Start 08/08/17 at 09:00 Lorazepam (Ativan Inj) 1 mg Q6H PRN IV anxiety or agitation Last administered on 08/10/17 14:30; Start 08/08/17 at 07:30; Stop 08/14/17 at 12:15; Status DC Fentanyl Citrate (fentaNYL INJ) 100 mcg STK-MED ONCE .ROUTE ; Start 08/09/17 at 12:47; Stop 08/09/17 at 12:48; Status DC Miscellaneous Information ALL NURSING DEPARTME... UNSCH PRN .XX SEE LABEL COMMENTS; Start 08/09/17 at 12:42; Stop 08/10/17 at 12:41; Status DC Acetaminophen/ Hydrocodone Bitart ([place] 5-325 Mg) 1 tab Q4H PRN PO pain 5-10 Last administered on 08/14/17at 09:53; Start 08/10/17 at 18:15; Stop 08/14/17 at 12:23; Status DC Alprazolam (Xanax) 0.25 mg Q4H PRN PO anxiety Last administered on 3/6/18at 04: 09; Start 08/10/17 at 18:15 Morphine Sulfate (Morphine Inj) 2 mg Q1H PRN IV PUSH Pain 6-10 Last administered on 08/12/17at 19:49; Start 08/10/17 at 18:15; Stop 08/14/17 at 12:15 ; Status DC Hydralazine HCl (Apresoline) 25 mg Q6H PRN PO SBP > 160, DBP > 90 Last administered on 08/14/17at 20:58; Start 08/10/17 at 18:15 Cefazolin Sodium/ Dextrose 50 ml @ 100 mls/hr DIETIST IV ; Start 08/12/17 at 09:45; Stop 08/14/17 at 12:24; Status DC Vancomycin HCl 1000 mg/Sodium Chloride 250 ml @ 250 mls/hr DIETIST IV Last administered on 08/12/17at 12:43; Start 08/12/17 at 11:00; Stop 08/15/17 at 11:15 ; Status DC Cefazolin Sodium/ Dextrose 50 ml @ 100 mls/hr DIETIST IV Last administered on 08/12/17at 11:31; Start 08/12/17 at 11:00; Stop 08/15/17 at 11:15; Status DC Lidocaine HCl (Xylocaine-Mpf 1% Inj) 5 ml STK-MED ONCE OTHER ; Start 08/09/17 at 12:00; Stop 08/12/17 at 10:22; Status DC Ephedrine Sulfate (ePHEDrine/NS 25 MG/5 ML SYR) 25 mg STK-MED ONCE IV ; Start at 12:00; Stop 08/12/17 at 10:22; Status DC Propofol (Diprivan 200 Mg/20 ml Inj) 400 mg STK-MED ONCE IV ; Start 08/09/17 at 12:00; Stop 08/12/17 at 10:22; Status DC Fentanyl Citrate (fentaNYL INJ) 100 mcg STK-MED ONCE .ROUTE Last administered on 08/12/17at 12:14; Start 08/12/17 at 12:14; Stop 08/12/17 at 12:15; Status DC Midazolam HCl (Versed Inj) 2 mg STK-MED ONCE .ROUTE Last administered on at 12:14; Start 08/12/17 at 12:14; Stop 08/12/17 at 12:15; Status DC Heparin Sodium (Porcine) (*HEPARIN CENTRAL FLUSH PERIprocedural ONLY) 500 units STK-MED ONCE IV FLUSH Last administered on 08/12/17at 12:24; Start 08/12/17 at 12:24; Stop 08/12/17 at 12:25; Status DC Fentanyl Citrate (fentaNYL INJ) 100 mcg STK-MED ONCE .ROUTE Last administered on 08/12/17at 12:46; Start 08/12/17 at 12:46; Stop 08/12/17 at 12:47; Status DC Midazolam HCl (Versed Inj) 2 mg STK-MED ONCE .ROUTE Last administered on at 12:46; Start 08/12/17 at 12:46; Stop 08/12/17 at 12:47; Status DC Heparin Sodium (Porcine) (Heparin Central Flush) 500 units UNSCH IV FLUSH ; Start 08/12/17 at 13:30 Sodium Chloride (NS Flush) 5 ml UNSCH PRN IVF SEE PROTOCOL; Start 08/12/17 at 13:30 Heparin Sodium (Porcine) (Heparin Central Flush) 250 units UNSCH PRN IV FLUSH SEE PROTOCOL; Start 08/12/17 at 13:30 Iohexol (Omnipaque 350 Inj) 69 ml STK-MED ONCE IVCONTRAST Last administered on 08/13/17at 10:06; Start 08/13/17 at 10:06; Stop 08/13/17 at 10:07; Status DC Propofol (Diprivan 200 Mg/20 ml Inj) 400 mg STK-MED ONCE IV ; Start 08/12/17 at 12:00; Stop 08/13/17 at 10:19; Status DC Lidocaine HCl (Xylocaine-Mpf 1% Inj) 5 ml STK-MED ONCE OTHER ; Start 08/12/17 at 12:00; Stop 08/13/17 at 10:19; Status DC Metoclopramide HCl (Reglan Inj) 5 mg ONCE ONCE IV PUSH Last administered on at 03:18; Start 08/14/17 at 02:30; Stop 08/14/17 at 02:31; Status DC Senna/Docusate Sodium (Loreta-Colace) 1 tab BID PEG Last administered on at 09:24; Start 08/14/17 at 10:45 Oxycodone HCl (Roxicodone) 5 mg Q4H PRN PO pain 3-10 Last administered on at 20:59; Start 08/14/17 at 12:15; Stop 08/15/17 at 11:33; Status DC Ondansetron HCl (Zofran Odt) 4 mg Q4H PRN PO nausea; Start 08/15/17 at 11:30 Famotidine (Pepcid Liq) 20 mg BID PEG Last administered on 08/20/17at 09:24; Start 08/15/17 at 21:00 Morphine Sulfate (Roxanol Liq) 5 mg Q4H PRN PEG PAIN 3-10 Last administered on 08/18/17at 09:20; Start 08/15/17 at 11:30; Stop 08/18/17 at 10:48; Status DC Acetaminophen (Tylenol 650 Mg/ 20 ml Liq) 650 mg Q4H PRN PO PAIN 1-2 Last administered on 08/19/17at 15:41; Start 08/15/17 at 11:45 Bisacodyl (Dulcolax Supp) 10 mg DAILY PRN RECTAL CONSTIPATION Last administered on 08/17/17at 13:14; Start 08/16/17 at 11:45 Magnesium Hydroxide (Milk Of Magnesia Liq) 30 ml ONCE ONCE PO Last administered on 08/16/17at 13:25; Start 08/16/17 at 13:25; Stop 08/16/17 at 13:27; Status DC Senna/Docusate Sodium (Loreta-Colace) 2 tab ONCE ONCE PO ; Start 08/17/17 at 12:45 ; Stop 08/17/17 at 13:04; Status DC Magnesium Hydroxide (Milk Of Magnesia Liq) 30 ml ONCE ONCE PO ; Start 08/17/17 at 12:45; Stop 08/17/17 at 13:04; Status DC Morphine Sulfate (Roxanol Liq) 7.5 mg Q4H PRN PEG PAIN 3-10 Last administered on 08/20/17at 09:49; Start 08/18/17 at 11:30 A/P Problem List: (1) Acute airway obstruction ICD Code: J98.8 - Other specified respiratory disorders (2) Laryngeal mass ICD Code: J38.7 - Other diseases of larynx Status: Acute (3) Stridor ICD Code: R06.1 - Stridor Status: Acute Assessment and Plan Laryngeal mass - 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 -S/p tracheostomy and microlaryngoscopy and biopsy. Oncology/ radiation oncology, ENT and GI following. S/p PEG and port placement. CT chest per oncology noted. Pathology shows poorly differentiated SCCA, P16 negative. -Patient on bolus feed. - continue with trach care. - follow up with oncology. Concurrent chemo/ radiation planned. - encourage ambulation. PT. - pain control as needed -Spoke to patient's nurse to notify respiratory therapist to call me when she sees patient. Constipation. - Laxatives ordered. Await return of bowel function. HTN -Well controlled at this time. - hydralazine as needed. Low TSH Borderline result. - repeat labs as an outpt. DVT prophylaxis: SCD's Discharge Planning Once home health is set up for PEG and trach management patient can be discharged home. Sandra Montano MD Aug 20, 2017 10:39
[2017-08-20 13:15] LABS: AUTOMATED NEUTROPHIL # 4.2 TH/MM3 (1.8-7.7); BASOPHIL # 0.1 TH/MM3 (0-0.2); BASOPHIL % 0.9 % (0.0-2.0); EOSINOPHIL # 0.2 TH/MM3 (0-0.4); EOSINOPHIL % 2.9 % (0.0-4.0); HEMATOCRIT 40.3 % (35.0-46.0); LYMPHOCYTE # 1.5 TH/MM3 (1.0-4.8); MEAN CELL VOLUME 97.2 FL (80.0-100.0); MEAN CORPUSCULAR HEMOGLOBIN 33.8 PG (27.0-34.0); MEAN CORPUSCULAR HGB CONC 34.8 % (32.0-36.0); MEAN PLATELET VOLUME 8.4 FL (7.0-11.0); MONO % 9.6 % (0.0-8.0); MONOCYTE # 0.6 TH/MM3 (0-0.9); NEUT % 63.6 % (16.0-70.0); PLATELET COUNT 304 TH/MM3 (150-450); RED BLOOD COUNT 4.15 MIL/MM3 (4.00-5.30); RED CELL DISTRIBUTION WIDTH 12.8 % (11.6-17.2); WHITE BLOOD COUNT 6.6 TH/MM3 (4.0-11.0)
[2017-08-20 13:43] LABS: BICARBONATE 30.9 MEQ/L (21.0-32.0); CALCIUM 9.1 MG/DL (8.5-10.1); CREATININE 0.48 MG/DL (0.50-1.00)
--- NOTE | 2017-08-20 16:33 | MB ---
cc: Berenice Ng MD DATE OF CONSULT: REASON FOR CONSULTATION: Laryngeal cancer, post-tracheostomy. HISTORY OF PRESENT ILLNESS: Mrs. Jorge is a 52-year-old female admitted with increased hoarseness of voice and shortness of breath, found to have a laryngeal mass. Biopsy was undertaken, revealing a poorly differentiated squamous cell cancer. The patient does have a tracheostomy in place. She denies history of shortness of breath, no fever, no chill, no cough, no expectoration. PAST MEDICAL HISTORY: That of, 1. COPD. 2. Borderline diabetes. 3. Hypertension. 4. Bilateral tubal ligation. FAMILY HISTORY: Positive for mother who had a malignancy, otherwise unremarkable. SOCIAL HISTORY: Smoked 1-1/2 packs of cigarettes a day for over 30 years. Drinks alcohol daily. Does not use drugs. MEDICATIONS AT HOME: Pepcid. SYSTEMS REVIEW: A 12-point review of systems as per HPI and past history, otherwise negative. On exam, patient is alert. Temperature 97 degrees Fahrenheit, pulse 80, respiration 18, blood pressure 100/70. HEENT: Unremarkable. Eyes without icterus. NECK: Without adenopathy or thyroid enlargement. Central trachea. CHEST: No dullness to percussion. Few rhonchi on auscultation. CARDIAC: PMI not appreciated. S1, S2 audible. No murmur. No rub. ABDOMEN: Lax. Bowel sounds audible. EXTREMITIES: No clubbing, cyanosis or edema. NECK: Tracheostomy in place. IMPRESSION: 1. Laryngeal cancer, post-tracheostomy. 2. Chronic obstructive pulmonary disease. 3. Borderline diabetes. PLAN: The patient is stable at this point. Her tracheostomy will need to be in place for a while until she concludes radiation therapy and all edematous change resolves. Then, removing her tracheostomy can be contemplated. Meanwhile, will place her on Brovana, budesonide, nebulization every 12 hours, as well as nebulized p.r.n. albuterol. She could be, when ready, discharged on this regimen. See her in the office in about a week or so. Follow her course and treatment and removing trach when possible. I do thank you for asking me to partake in Mrs. Jorge' care. MD IZZY Castillo , 04:14 PM , 04:30 PM
[2017-08-21 00:25] VITALS: BP 124/86; PULSE 79; RESP 17; TEMP 98.7; O2SAT 99
[2017-08-21 00:34] VITALS: PULSE 73
[2017-08-21 04:00] VITALS: PULSE 75
[2017-08-21 05:38] VITALS: BP 99/77; PULSE 81; RESP 16; TEMP 98.2; O2SAT 93
[2017-08-21] MEDS: MORPHINE SULFATE ORAL SOLN 10 MG/0.5 ML SYRINGE PEG PRN (05:40)
[2017-08-21] MEDS: CHLORHEXIDINE 0.12% (ORAL KIT) 15 ML CUP MT SCH (08:00)
[2017-08-21] MEDS ORDERED: ALBU1.25 NEB (08:45)
[2017-08-21] MEDS ORDERED: BUDE0.25 NEB (08:45)
[2017-08-21] MEDS ORDERED: NICO21DI25 T-DERMAL (08:45)
[2017-08-21] MEDS ORDERED: FAMO40SU4 PEG (08:45)
[2017-08-21] MEDS ORDERED: ALPR.25 PO (08:45)
[2017-08-21] MEDS ORDERED: BROV15NE NEB (08:47)
[2017-08-21 08:50] VITALS: O2SAT 97
--- NOTE | 2017-08-21 08:50 | HHI.FF ---
Face to Face Verification Diagnosis: (1) Laryngeal cancer (2) Tracheostomy correction Health Nursing Order: Signs/symptoms of disease process Instructions: tracheostomy care twice a day. Brovana and budesonide twice a care. albuterol nebulizer BID PRN for wheezing or SOB Tube feeds. I have seen patient Ruben Jorge on 08/21/17. My clinical findings support the need for the requested home health care services because: Limited ability to care for self I certify that my clinical findings support that this patient is homebound because: Post-op weakness Sandra Montano MD Aug 21, 2017 08:49
[2017-08-21 08:59] VITALS: BP 99/69; PULSE 93; RESP 16; O2SAT 95
[2017-08-21] MEDS: REMOVE OLD PATCH T-DERMAL SCH (09:00)
[2017-08-21] MEDS: NICOTINE 21 MG/24 HR PATCH T-DERMAL SCH (09:00)
[2017-08-21] MEDS: FAMOTIDINE 40 MG/5 ML LIQ 50 ML BTL PEG SCH (09:00)
[2017-08-21] MEDS: DOCUSATE SODIUM 50 MG/SENNA 8.6 MG TAB PEG SCH (09:01)
--- NOTE | 2017-08-21 09:52 | PD.ONC.PN ---
Subjective Subjective Remarks Afebrile overnight. Patient resting in bed in nad. No complaints. ready to go home. Objective Data Date Time Temp Pulse Resp B/P (MAP) Pulse Ox O2 Delivery O2 Flow Rate FiO2 08/21/17 08:59 93 16 99/69 (79) 95 08/21/17 08:50 97 21 08/21/17 05:38 98.2 81 16 99/77 (84) 93 08/21/17 04:00 75 08/21/17 00:34 73 08/21/17 00:25 98.7 79 17 124/86 (99) 99 08/20/17 21:03 94 Room Air 08/20/17 21:03 105 08/20/17 21:03 98.5 91 16 94/74 (81) 94 08/20/17 18:24 87 08/20/17 17:00 78 08/20/17 16:52 81 08/20/17 15:19 97.2 82 18 99/69 (79) 95 08/20/17 15:00 80 08/20/17 14:00 84 08/20/17 13:00 84 08/20/17 12:00 82 08/20/17 11:26 98.6 80 20 91/68 (76) 95 08/20/17 11:10 94 21 08/20/17 11:00 78 08/20/17 10:00 78 08/21/17 08/21/17 08/21/17 07:00 15:00 23:00 Intake Total 620 ml Balance 620 ml Result Diagram: 08/20/17 1158 08/20/17 1158 Laboratory Results Laboratory Tests Test 08/20/17 11:58 White Blood Count 6.6 TH/MM3 Red Blood Count 4.15 MIL/MM3 Hemoglobin 14.0 GM/DL Hematocrit 40.3 % Mean Corpuscular Volume 97.2 FL Mean Corpuscular Hemoglobin 33.8 PG Mean Corpuscular Hemoglobin Concent 34.8 % Red Cell Distribution Width 12.8 % Platelet Count 304 TH/MM3 Mean Platelet Volume 8.4 FL Neutrophils (%) (Auto) 63.6 % Lymphocytes (%) (Auto) 23.0 % Monocytes (%) (Auto) 9.6 % Eosinophils (%) (Auto) 2.9 % Basophils (%) (Auto) 0.9 % Neutrophils # (Auto) 4.2 TH/MM3 Lymphocytes # (Auto) 1.5 TH/MM3 Monocytes # (Auto) 0.6 TH/MM3 Eosinophils # (Auto) 0.2 TH/MM3 Basophils # (Auto) 0.1 TH/MM3 CBC Comment DIFF FINAL Differential Comment Blood Urea Nitrogen 13 MG/DL Creatinine 0.48 MG/DL Random Glucose 99 MG/DL Calcium Level 9.1 MG/DL Sodium Level 136 MEQ/L Potassium Level 4.0 MEQ/L Chloride Level 100 MEQ/L Carbon Dioxide Level 30.9 MEQ/L Anion Gap 5 MEQ/L Estimat Glomerular Filtration Rate 137 ML/MIN Administered Medications Medications (Trade) Dose Ordered Sig/Kali Route PRN Reason Start Time Stop Time Status Last Admin Dose Admin Sodium Chloride (NS Flush) 2 ml UNSCH PRN IVF FLUSH AFTER USING IV ACCESS 08/07/17 05:30 08/10/17 19:58 Chlorhexidine Gluconate (Peridex 0.12% Liq) 15 ml BID@08,20 MT 08/07/17 20:00 08/14/17 08:00 Nicotine (Habitrol 21 Mg Patch.24 Hr) 1 patch DAILY T-DERMAL 08/08/17 09:00 08/21/17 09:00 Miscellaneous Information 1 DAILY T-DERMAL 08/08/17 09:00 08/21/17 09:00 Alprazolam (Xanax) 0.25 mg Q4H PRN PO anxiety 08/10/17 18:15 08/20/17 04:09 Hydralazine HCl (Apresoline) 25 mg Q6H PRN PO SBP > 160, DBP > 90 08/10/17 18:15 08/14/17 20:58 Senna/Docusate Sodium (Loreta-Colace) 1 tab BID PEG 08/14/17 10:45 08/21/17 09:01 Famotidine (Pepcid Liq) 20 mg BID PEG 08/15/17 21:00 08/21/17 09:00 Acetaminophen (Tylenol 650 Mg/ 20 ml Liq) 650 mg Q4H PRN PO PAIN 1-2 08/15/17 11:45 08/19/17 15:41 Bisacodyl (Dulcolax Supp) 10 mg DAILY PRN RECTAL CONSTIPATION 08/16/17 11:45 08/17/17 13:14 Morphine Sulfate (Roxanol Liq) 7.5 mg Q4H PRN PEG PAIN 3-10 08/18/17 11:30 08/21/17 05:40 Objective Remarks GENERAL: Middle aged female, upright in bed in nad. SKIN: Warm and dry. HEAD: Normocephalic. EYES: No injection or drainage. NECK: Supple, trachea midline. trach in place CARDIOVASCULAR: Regular rate and rhythm RESPIRATORY: Breath sounds equal bilaterally. No accessory muscle use. GASTROINTESTINAL: Abdomen soft, PEG tube clamped. site clean. EXTREMITIES: No cyanosis NEUROLOGICAL: awake and alert, no obvious focal deficit. Assessment/Plan Problem List: (1) Laryngeal cancer ICD Codes: C32.9 - Malignant neoplasm of larynx, unspecified Plan: s/p biopsy in OR 08/09, pathology showed poorly diff. invasive squamous cell carcinoma. --treatment will be concurrent chemo/radiation--plan to start week of 08/26 --s/p radiation simulation 08/19 History: --started having dysphonia about two months ago. She developed progressive dysphagia and shortness of breath. 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 There was a small left cervical chain lymph node, which could be reactive, but cannot rule out metastatic disease. The mass obstructed the airway and the patient had emergent tracheostomy placement inpatient. 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 h/o tobacco and alcohol use. Borderline diabetes not on any medication. Chronic obstructive pulmonary disease, not previously diagnosed. Hypertension. Plan 1. clear for discharge. 2. follow up in clinic next week. Attending Statement The exam, history, and the medical decision-making described in the above note were completed with the assistance of the mid-level provider. I reviewed and agree with the findings presented. I attest that I had a [id number] encounter with the patient on the same day, and personally performed and documented my assessment and findings in the medical record. No new c/o. F/u oncology clinic to start chemo/XRT. Regi Pitts Aug 21, 2017 09:52 Artie Hayward MD Aug 21, 2017 12:30
--- NOTE | 2017-08-21 10:18 | HHI.DS ---
Discharge Summary Admission Date Aug 07, 2017 at 07:42 Discharge Date: Aug 21, 2017 Admitting Diagnosis difficulty breathing, neck mass, airway impingement (1) Acute airway obstruction ICD Code: J98.8 - Other specified respiratory disorders Diagnosis: Principal (2) Laryngeal mass ICD Code: J38.7 - Other diseases of larynx Diagnosis: Principal Status: Acute (3) Tracheostomy care ICD Code: Z43.0 - Encounter for attention to tracheostomy Diagnosis: Principal Procedures Tracheostomy/ Microlaryngoscopy and biopsy PEG tube/ Port placement Brief History - From Admission 52 y/o female , chronic smoker with history of alcohol abuse, who presented to ER with hoarseness, difficulty breathing. She says that it's been going on for a couple of months. Complaining of worsening difficult breathing and swallowing for the past two months. she's lost about 15 pounds over the past few weeks. Cough productive of whitish sputum with no report of fever or chills. she says that it seems that her hoarseness has been getting worse. CBC/BMP: 08/20/17 1158 08/20/17 1158 Significant Findings Laboratory Tests Test 08/20/17 11:58 Monocytes (%) (Auto) 9.6 % (0.0-8.0) Creatinine 0.48 MG/DL (0.50-1.00) Imaging Last Impressions Chest CT 08/13/17 0000 Signed Impressions: Service Date/Time: Sunday, August 13, 2017 10:05 - CONCLUSION: 1. Small simple appearing bilateral pleural effusions with compressive atelectasis. 2. There is moderate emphysema. No pulmonary nodules are identified to suggest metastatic disease. 3. There is narrowing of the airway superior to the tracheostomy. Additionally, there is tracheal wall thickening with mild abnormal soft tissue surrounding the trachea and the superior mediastinum. Renato Drew MD Port Line Insertion 08/12/17 0000 Signed Impressions: Service Date/Time: Saturday, August 12, 2017 12:06 - CONCLUSION: Uncomplicated ultrasound and fluoroscopic guided implanted central venous port catheter placement as described in detail above. An 8 [place] Power port was placed. Renato Candelaria MD Chest X-Ray 08/07/17 0528 Signed Impressions: Service Date/Time: Monday, August 07, 2017 05:38 - CONCLUSION: No acute disease. Walker Sharif MD Neck CT 08/07/17 0000 Signed Impressions: Service Date/Time: Monday, August 07, 2017 06:35 - CONCLUSION: 1. Soft tissue mass involving left performed sinuses and aryepiglottic folds most characteristic of a tumor. Direct visualization is recommended. 2. Small left cervical chain nodes which may be reactive. 3. Emphysema in the lung apices. Walker Sharif MD ADDENDUM: Large predominantly supraglottic laryngeal mass involving the true vocal cords especially the left, left aryepiglottic fold, left arytenoid cartilage and laryngeal cartilage. There is extra laryngeal penetration by the mass into the left anterolateral subcutaneous soft tissues at the level of the commissure. Infraglottic extension of the mass is seen concentrically involving the cricoid cartilage. Arnaldo Okeefe MD PE at Discharge GENERAL: in NAD NECK: Supple, trachea midline. No JVD or lymphadenopathy. Trach in place. CARDIOVASCULAR: Regular rate and rhythm without murmurs, gallops, or rubs. RESPIRATORY: Bilateral intermittent rhonchi. No accessory muscle use. GASTROINTESTINAL: Abdomen soft, non-tender, nondistended. MUSCULOSKELETAL: No cyanosis, or edema. BACK: Nontender without obvious deformity. No CVA tenderness. Pt update on day of discharge Follow-up for PEG and trach management and laryngeal cancer Patient denies any shortness of breathing. I spoke to speech therapist to reevaluate patient this morning and she stated that patient can have a mechanical soft diet and thin liquids. Patient says she is very excited about this. She denied any cough, chest pain, palpitation, light his dizziness. Patient is ambulating well and has good oxygen saturation without oxygen supplement. She also stated that her daughter who is a nurse will manage her trach and PEG. Discussed case with patient's nurse. Hospital Course Laryngeal mass -Oncologist consulted. Patient had malignancy workup. 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 P16 negative. -S/p tracheostomy and microlaryngoscopy and biopsy. Oncology/ radiation oncology. She had a trach and PEG placed during hospitalization. PEG was placed since patient was n.p.o for her entire hospitalization except for the last day which she had reevaluation by speech therapist who stated that patient is able to have a mechanical soft diet and thin liquids.. Patient also had a port placement. -Patient was given bolus feeds with Glucerna 1.5 along with water flushes 250 cc every 4 hours. -Senior Program Analyst consulted for trach management in which he recommended Brovana, budesonide, albuterol nebulizer every 12 hours as needed. He also stated that patient will need to keep current trach in for the duration of her treatment and to follow-up with him in 1 week as outpatient. Pt Condition on Discharge: Stable Discharge Disposition: Disch w/ Home Health Serv Discharge Time: > 30 minutes Discharge Instructions DIET: Follow Instructions for: As Tolerated, No Restrictions, Soft Diet Additional Diet Instructions: Recommend mechanical soft diet with thin liquid. Also tube feeds with glucerna 1.5 at 9:00, 12:00, 16:00, and 21:00 with 250 cc water flushes every 4 hours. Activities you can perform: Regular-No Restrictions Follow up Referrals: Oncology - 1 Week with Artie Hayward MD PCP Follow-up - 1 Week New Medications: Arformoterol Neb (Brovana Neb) 15 Mcg/2 Ml Vial 1 NEBULE NEB BID for Broncospasm, #60 NEBULE Maintenance treatment of bronchoconstriction in COPD. Budesonide Neb (Budesonide Neb) 0.25 Mg/2 Ml Neb 0.25 MG NEB Q12HR NEB for Breathing Treatment, #60 NEBULE 0 Refills [med] () 300 ML PEG QID for feeding for 60 Days Glucerna 1.5 bolus 300 mls four times daily (breakfast, lunch, dinner and hs) Albuterol Neb (Albuterol Neb) 1.25 Mg/3 Ml Neb 1.25 MG NEB BID PRN for SHORTNESS OF BREATH, #1 NEBULE 0 Refills Alprazolam (Xanax) 0.25 Mg Tab 0.25 MG PO Q4H PRN for anxiety, #30 TAB 0 Refills Famotidine Liq (Famotidine Liq) 40 Mg/5 Ml Susp 20 MG PEG BID for acid reflux, #60 TAB 0 Refills Morphine Liq (Morphine Liq) 20 Mg/Ml Liq 7.5 MG PEG Q4H PRN for moderate to severe pain, #15 ML 0 Refills Nicotine (Eq Nicotine) 21 Mg/24 Hour Dis 1 PATCH T-DERMAL DAILY for nicotine addiction, #14 PATCH 0 Refills Sandra Montano MD Aug 21, 2017 10:18
[2017-08-21] MEDS ORDERED: MORP20SO2 PEG (11:03)
== END 2017-08-21 11:52 | disposition home health service (06) | DRG 12 ==
LOC: NEPE 05:24 → NEDA 07:42 → N03A 09:44 → N05A 08-12 21:45 → HCIN 08-14 20:33
PROVIDERS: ADMIT Family Medicine; ATTEND Family Medicine
PROC: 0B113F4 Bypass Trachea to Cutaneous with Tracheostomy Device, Percutaneous Approach (ICD-10-PCS; principal; 2017-08-07)
PROC: 5A1945Z Respiratory Ventilation, 24-96 Consecutive Hours (ICD-10-PCS; 2017-08-07)
PROC: 0CBS8ZX Excision of Larynx, Via Natural or Artificial Opening Endoscopic, Diagnostic (ICD-10-PCS; 2017-08-09)
PROC: 0DH63UZ Insertion of Feeding Device into Stomach, Percutaneous Approach (ICD-10-PCS; 2017-08-12)
PROC: 0JH60WZ Insertion of Totally Implantable Vascular Access Device into Chest Subcutaneous Tissue and Fascia, Open Approach (ICD-10-PCS; 2017-08-12)
PROC: 02HV33Z Insertion of Infusion Device into Superior Vena Cava, Percutaneous Approach (ICD-10-PCS; 2017-08-12)
DX: C32.8 Malignant neoplasm of overlapping sites of larynx (principal); Z68.1 Body mass index [BMI] 19.9 or less, adult; R13.10 Dysphagia, unspecified; J43.9 Emphysema, unspecified; E86.0 Dehydration; E87.1 Hypo-osmolality and hyponatremia; D75.1 Secondary polycythemia; R06.1 Stridor; I10 Essential (primary) hypertension; R63.4 Abnormal weight loss; F17.210 Nicotine dependence, cigarettes, uncomplicated; F10.10 Alcohol abuse, uncomplicated; R49.0 Dysphonia; R06.03 Acute respiratory distress; R73.03 Prediabetes; R74.8 Abnormal levels of other serum enzymes; K59.00 Constipation, unspecified; R51 Headache
CPT/HCPCS: 31600; 36561; 70491; 71045; 71260; 76937; 77001; 80048; 80053; 80074; 81001; 82550; 83735; 83880; 83930; 83935; 84443; 84484; 85025; 85027; 85610; 85730; 87641; 88305; 88341; 88342; 93005; 94002; 94003; 94618; 94640; 94664; 96374; 96375; 99152; 99153; C1788; J0330; J0360; J0690; J1100; J1642; J2060; J2250; J2270; J2405; J2765; J3010; J3370; J7030; J7050; Q9967

== ENCOUNTER 2017-08-26 22:22 | Emergency (ER) | payer SELFPAY ==
[~2017-08-26] VITALS: Ht 167.6 cm; Wt 58.0 kg
[~2017-08-26 22:22] MED LIST changes: +ALBU1.25 NEB; +ALPR.25 PO; -BACT800T5 PO; +BROV15NE NEB; +BUDE0.25 NEB; -DOXY100T PO; +FAMO40SU4 PEG; +MORP20SO2 PEG; +NICO21DI25 T-DERMAL; +med PEG
[2017-08-26 22:47] VITALS: BP 121/92; PULSE 114; RESP 20; TEMP 99.1; O2SAT 95
== END 2017-08-27 03:13 | disposition left against medical advice (07) ==
LOC: NED 22:22
DX: T85.9XXA Unspecified complication of internal prosthetic device, implant and graft, initial encounter (principal); Z53.21 Procedure and treatment not carried out due to patient leaving prior to being seen by health care provider
CPT/HCPCS: 99281

== ENCOUNTER 2017-09-05 10:31 | Inpatient (IN) | payer MEDICAID, MEDICARE, OTHER ==
[~2017-09-05] VITALS: Ht 167.6 cm; Wt 56.0 kg
[2017-09-05 10:32] VITALS: BP 136/92; PULSE 102; RESP 18; TEMP 97.6; O2SAT 100
--- NOTE | 2017-09-05 10:53 | PD ---
HPI Chief Complaint: Abnormal Results Time Seen by Provider: 10:42 Travel History International Travel<30 days: No Contact w/Intl Traveler<30days: No Traveled to known affect area: No History of Present Illness HPI 52-year-old female with a history of had a neck cancer arrives to the ER due to a cellulitis about the gastrostomy site of insertion. 5-6 days of pain, induration and erythema reported. Pain is worse with palpation. She denies fever. Associated symptoms include discharge about site of insertion. No vomiting. Pain is of moderate severity and worse with palpation. Keflex at home has not been helpful. PFSH Past Medical History Hx Anticoagulant Therapy: No Cancer: No Cardiovascular Problems: Yes (HTN) Chemotherapy: No COPD: Yes Cerebrovascular Accident: No Diabetes: Yes (diabetic when pt was drinking heavily) Endocrine: Yes GERD: Yes Genitourinary: No Hypertension: Yes Immune Disorder: No Musculoskeletal: No Neurologic: No Psychiatric: No Reproductive: No Respiratory: Yes (Throat cancer and Trach) : 3 Para: 3 Past Surgical History Gynecologic Surgery: Yes (tubal ligation) Hysterectomy: No Social History Alcohol Use: Yes (A COUPLE OF TIMES A WEEK) Tobacco Use: Yes (1 PPD) Substance Use: No Allergies-Medications (Allergen,Severity, Reaction): Coded Allergies: *MDRO Multi-Drug Resistant Organism (Verified Adverse Reaction, Unknown, ) MRSA (wound) - 11/07/15 Reported Meds & Prescriptions Reported Meds & Active Scripts Active Morphine Liq (Morphine Sulfate) 20 Mg/Ml Liq 7.5 Mg PEG Q4H PRN Brovana Neb (Arformoterol Neb) 15 Mcg/2 Ml Vial 1 Nebule NEB BID Maintenance treatment of bronchoconstriction in COPD. Budesonide Neb 0.25 Mg/2 Ml Neb 0.25 Mg NEB Q12HR NEB Famotidine Liq (Famotidine) 40 Mg/5 Ml Susp 20 Mg PEG BID Xanax (Alprazolam) 0.25 Mg Tab 0.25 Mg PO Q4H PRN Eq Nicotine (Nicotine) 21 Mg/24 Hour Dis 1 Patch T-DERMAL DAILY Albuterol Neb (Albuterol Sulfate) 1.25 Mg/3 Ml Neb 1.25 Mg NEB BID PRN [med] 300 Ml PEG QID 60 Days Glucerna 1.5 bolus 300 mls four times daily (breakfast, lunch, dinner and hs) Review of Systems Except as stated in HPI: all other systems reviewed are Neg General / Constitutional: No: Fever Physical Exam Narrative GENERAL: 52-year-old female pleasant well-nourished well-developed Vital Signs Date Time Temp Pulse Resp B/P (MAP) Pulse Ox O2 Delivery O2 Flow Rate FiO2 09/05/17 10:32 97.6 102 18 136/92 (107) 100 SKIN: Warm and dry. Abdominal wall demonstrates about 6 cm in circumference of erythema, induration and tenderness surrounding the gastrostomy site of insertion. There is no fluctuance. HEAD: Atraumatic. Normocephalic. EYES: Pupils equal and round. No scleral icterus. No injection or drainage. ENT: No nasal bleeding or discharge. Mucous membranes pink and moist. Tracheostomy intact. NECK: Trachea midline. No JVD. CARDIOVASCULAR: Tachycardia. Regular. RESPIRATORY: No accessory muscle use. Clear to auscultation. Breath sounds equal bilaterally. GASTROINTESTINAL: Abdomen soft, non-tender, nondistended. Hepatic and splenic margins not palpable. MUSCULOSKELETAL: Extremities without clubbing, cyanosis, or edema. No obvious deformities. NEUROLOGICAL: Awake and alert. No obvious cranial nerve deficits. Motor grossly within normal limits. Five out of 5 muscle strength in the arms and legs. Normal speech. PSYCHIATRIC: Appropriate mood and affect; insight and judgment normal. Data Data Last Documented VS Vital Signs Date Time Temp Pulse Resp B/P (MAP) Pulse Ox O2 Delivery O2 Flow Rate FiO2 09/05/17 12:35 90 18 119/94 (102) 96 Room Air 09/05/17 10:32 97.6 Orders Orders Basic Metabolic Panel (Bmp) (09/05/17 10:46) Complete Blood Count With Diff (09/05/17 10:46) Wound Culture And Gram Stain (09/05/17 10:46) Iv Access Insert/Monitor (09/05/17 10:46) Wound Care (09/05/17 10:46) Vancomycin Inj (Vancomycin Inj) (09/05/17 11:00) Abdomen, Kub Only (09/05/17 ) Diatrizoate Liq ( Gastroview Liq) (09/05/17 11:00) Abdomen, Kub Only (09/05/17 11:35) Lidocaine 2% Viscous (Xylocaine 2% Visco (09/05/17 12:23) Invasive Rad Dept Consult (09/05/17 ) Admit Order (Ed Use Only) (09/05/17 ) Vital Signs (Adult) Q4H (09/05/17 13:03) Diet Npo (09/05/17 Lunch) Activity Bed Rest (09/05/17 13:03) Labs Laboratory Tests Test 09/05/17 11:40 White Blood Count 6.2 TH/MM3 Red Blood Count 3.62 MIL/MM3 Hemoglobin 12.1 GM/DL Hematocrit 34.5 % Mean Corpuscular Volume 95.3 FL Mean Corpuscular Hemoglobin 33.4 PG Mean Corpuscular Hemoglobin Concent 35.0 % Red Cell Distribution Width 12.7 % Platelet Count 271 TH/MM3 Mean Platelet Volume 8.2 FL Neutrophils (%) (Auto) 65.7 % Lymphocytes (%) (Auto) 22.7 % Monocytes (%) (Auto) 9.5 % Eosinophils (%) (Auto) 1.3 % Basophils (%) (Auto) 0.8 % Neutrophils # (Auto) 4.0 TH/MM3 Lymphocytes # (Auto) 1.4 TH/MM3 Monocytes # (Auto) 0.6 TH/MM3 Eosinophils # (Auto) 0.1 TH/MM3 Basophils # (Auto) 0.1 TH/MM3 CBC Comment DIFF FINAL Differential Comment Blood Urea Nitrogen 5 MG/DL Creatinine 0.53 MG/DL Random Glucose 116 MG/DL Calcium Level 8.2 MG/DL Sodium Level 138 MEQ/L Potassium Level 3.7 MEQ/L Chloride Level 104 MEQ/L Carbon Dioxide Level 25.8 MEQ/L Anion Gap 8 MEQ/L Estimat Glomerular Filtration Rate 122 ML/MIN MDM Medical Decision Making Medical Screen Exam Complete: Yes Emergency Medical Condition: Yes Medical Record Reviewed: Yes Differential Diagnosis cellulitis, abscess, sepsis Narrative Course Vanco started for abdominal wall cellulitis PEG tube obstruction IR will replace PEG tube CBC & BMP Diagram 09/05/17 11:40 Calcium Level 8.2 L Case d/w Dr Goldstein for [facility] Diagnosis Primary Impression: Cellulitis of abdominal wall Additional Impression: PEG tube malfunction Admitting Information Admitting Physician Requests: Observation Vern Garcia MD Sep 05, 2017 10:52
[2017-09-05] MEDS ORDERED: VANCOMYCIN INJ 1,250 MG in SODIUM CHLOR 0.9% 250 ML INJ 250 ML IV ONE (11:00)
[2017-09-05] MEDS ORDERED: DIATRIZOATE MEGLUM/DIATRIZOATE SOD 9 ML CUP PO ONE (11:00)
--- NOTE | 2017-09-05 11:56 | RADRPT ---
EXAM DATE/TIME: 09/05/2017 11:10 [facility] COMPARISON: No previous studies available for comparison. INDICATIONS : Gastrostomy placement MEDICAL HISTORY : Carcinoma, esophageal. Chronic obstructive pulmonary disease. SURGICAL HISTORY : Infusaport, gastrostomy tube, Trach. ENCOUNTER: Initial ACUITY: 1 day PAIN SCORE: 0/10 LOCATION: Abdomen FINDINGS: Supine view of the abdomen was performed. There is a gastrostomy projecting over the stomach. No micaela s free air. The abdominal bowel gas pattern is normal. Small calcifications in the pelvis consistent with phleboliths. The osseous structures are unremarkable. CONCLUSION: 1. Gastrostomy catheter projecting over the stomach. 2. Nonobstructive bowel gas pattern. Catalino Dale MD on September 05, 2017 at 11:53 Board Certified Radiologist. This report was verified electronically.
[2017-09-05] MEDS ORDERED: LIDOCAINE VISCOUS 2% SOLN 15 ML UDC SWISH-SPIT STA (12:23)
[2017-09-05 12:25] LABS: BASOPHIL # 0.1 TH/MM3 (0-0.2); BASOPHIL % 0.8 % (0.0-2.0); EOSINOPHIL # 0.1 TH/MM3 (0-0.4); EOSINOPHIL % 1.3 % (0.0-4.0); HEMATOCRIT 34.5 % (35.0-46.0); HEMOGLOBIN 12.1 GM/DL (11.6-15.3); LYMPH % 22.7 % (9.0-44.0); LYMPHOCYTE # 1.4 TH/MM3 (1.0-4.8); MEAN CELL VOLUME 95.3 FL (80.0-100.0); MEAN CORPUSCULAR HEMOGLOBIN 33.4 PG (27.0-34.0); MEAN PLATELET VOLUME 8.2 FL (7.0-11.0); MONO % 9.5 % (0.0-8.0); MONOCYTE # 0.6 TH/MM3 (0-0.9); NEUT % 65.7 % (16.0-70.0); PLATELET COUNT 271 TH/MM3 (150-450); RED BLOOD COUNT 3.62 MIL/MM3 (4.00-5.30); RED CELL DISTRIBUTION WIDTH 12.7 % (11.6-17.2); WHITE BLOOD COUNT 6.2 TH/MM3 (4.0-11.0)
[2017-09-05 12:35] VITALS: BP 119/94; PULSE 90; RESP 18; O2SAT 96
[2017-09-05 12:36] LABS: BICARBONATE 25.8 MEQ/L (21.0-32.0); CALCIUM 8.2 MG/DL (8.5-10.1); CREATININE 0.53 MG/DL (0.50-1.00)
[2017-09-05] MEDS ORDERED: LACTULOSE SYRUP 20 GM/30 ML CUP PO PRN (14:00)
[2017-09-05] MEDS ORDERED: RESP: ALBUTEROL 2.5 MG/3 ML NEB (PRN) INH ×2 (14:00→16:45)
[2017-09-05] MEDS ORDERED: ACETAMINOPHEN 325 MG TAB PO PRN (14:00)
[2017-09-05] MEDS ORDERED: SENNOSIDES 8.6 MG TAB PO PRN (14:00)
[2017-09-05] MEDS ORDERED: BISACODYL 10 MG SUPP RECTAL PRN (14:00)
[2017-09-05] MEDS ORDERED: MAGNESIUM HYDROXIDE SUSP 30 ML CUP PO PRN (14:00)
[2017-09-05] MEDS ORDERED: NALOXONE HCL 0.4 MG/ML AMP IV PUSH PRN (14:00)
[2017-09-05] MEDS ORDERED: SODIUM CHLORIDE 0.9% FLUSH 10 ML FLUSH IV FLUSH PRN (14:00)
[2017-09-05] MEDS ORDERED: ENOXAPARIN SODIUM 40 MG/0.4 ML SYRINGE SQ SCH (15:00)
[2017-09-05] MEDS ORDERED: RESP: ALBUTEROL 2.5 MG/IPRATROPIUM 0.5 MG NEB (SCH) INH (16:00)
--- NOTE | 2017-09-05 16:17 | HHI.HP ---
HPI Service Family Medicine Primary Care Physician No Primary Care Physician Admission Diagnosis Abd Wall Cellulitis About PEG Tube; PEG Tube Malfunction Diagnoses: International Travel<30 Days: No Contact w/Intl Traveler<30days: No Known Affected Area: No History of Present Illness Patient is a 52-year-old female with a history of COPD and head and neck cancer presenting for abdominal wall cellulitis. Patient and her daughter provided the history together. Last week, patient was visiting with oncology and there is a suspicion for clogging of the gastrostomy tube. Was prescribed Keflex no further problems were noted. However, in the last week, patient has had increased pain at the abdomen near the site of the gastrostomy tube. Tried to flush the gastrostomy tube fluid came out of the stomach. Patient was due to start chemotherapy today and went to oncology. However, was sent by oncology for clogging of the gastrostomy tube. In the last week, patient has also had cough with increased sputum. The sputum is clear and has appearance of phlegm. Patient denies fevers, shortness of breath, decreased appetite. Endorses increased fatigue. Patient's head and neck cancer was diagnosed during hospitalization in July of this year after experiencing increased dysphagia and dyspnea from laryngeal mass. Tracheostomy was performed in the ICU, and biopsy was taken of laryngeal mass. 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 Has followed up with oncology since then. Pulmonology saw patient during this hospitalization and diagnosed her with COPD. Recommended Brovana, budesonide, albuterol nebulizer every 12 hours. Was to follow with pulmonology. (Chelsea Oviedo MD R1) Review of Systems Constitutional: DENIES: Weight loss, Change in appetite Endocrine: DENIES: Polydipsia Eyes: DENIES: Blurred vision, Vision loss Ears, nose, mouth, throat: DENIES: Hearing loss, Hoarseness Respiratory: COMPLAINS OF: Cough, Sputum production, DENIES: Shortness of breath Cardiovascular: DENIES: Chest pain Gastrointestinal: DENIES: Bloody stools, Constipation Genitourinary: DENIES: Dysmenorrhea, Dyspareunia Musculoskeletal: DENIES: Joint pain, Stiffness Integumentary: DENIES: Abnormal pigmentation, Pruritus Hematologic/lymphatic: DENIES: Bruising Immunologic/allergic: DENIES: Eczema Neurologic: DENIES: Abnormal gait, Localized weakness (Chelsea Oviedo MD R1) Past Family Social History Past Medical History 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 Diagnosed w/COPD on jul 2017 admission. Recommended budesonide neb Q12H, arformoterol nebulizer BID maintenance for bronchospasm, and albuterol q12H Past Surgical History Tubal ligation Port line surgeon in the right upper chest 08/12/17 PEG tube placement 08/2017 Tracheostomy 08/09/17 Reported Medications Reported Meds & Active Scripts Active Morphine Liq (Morphine Sulfate) 20 Mg/Ml Liq 7.5 Mg PEG Q4H PRN Famotidine Liq (Famotidine) 40 Mg/5 Ml Susp 20 Mg PEG BID Xanax (Alprazolam) 0.25 Mg Tab 0.25 Mg PO Q4H PRN Eq Nicotine (Nicotine) 21 Mg/24 Hour Dis 1 Patch T-DERMAL DAILY (Chelsea Oviedo MD R1) Allergies: Coded Allergies: *MDRO Multi-Drug Resistant Organism (Verified Adverse Reaction, Unknown, ) MRSA (wound) - 11/07/15 Family History Mom: cancer Dad: none Social History She lives at home with daughter. Smoke 1 PPD, recently quit No illicit or recreational drugs (Chelsea Oviedo MD R1) Physical Exam Vital Signs Vital Signs Date Time Temp Pulse Resp B/P (MAP) Pulse Ox O2 Delivery O2 Flow Rate FiO2 09/05/17 12:35 90 18 119/94 (102) 96 Room Air 09/05/17 10:32 97.6 102 18 136/92 (107) 100 Physical Exam GENERAL: This is a thin, pleasant lady SKIN: Cool and dry. Port site and place at the right upper chest. No erythema or swelling HEAD: Atraumatic. Normocephalic. EYES: Pupils equal round and reactive. Extraocular motions intact. ENT: Airway patent. Mucous membranes moist. NECK: Trachea midline. Tracheostomy in place. No erythema or swelling of the surrounding skin. CARDIOVASCULAR: Regular rate and rhythm without murmurs, gallops, or rubs. RESPIRATORY: Coarse lung sounds on expiration. GASTROINTESTINAL: Site of gastrostomy tube has 1 inch space of induration, redness, tenderness. White thick fluid is fitting gastrostomy site. Rest of abdomen is nondistended and nontender. MUSCULOSKELETAL: Extremities without clubbing, cyanosis, or edema. NEUROLOGICAL: Awake and alert. Focal deficits. Motor and sensory grossly within normal limits. Five out of 5 muscle strength in all muscle groups. Normal speech. Laboratory Laboratory Tests Test 09/05/17 11:40 White Blood Count 6.2 Red Blood Count 3.62 Hemoglobin 12.1 Hematocrit 34.5 Mean Corpuscular Volume 95.3 Mean Corpuscular Hemoglobin 33.4 Mean Corpuscular Hemoglobin Concent 35.0 Red Cell Distribution Width 12.7 Platelet Count 271 Mean Platelet Volume 8.2 Neutrophils (%) (Auto) 65.7 Lymphocytes (%) (Auto) 22.7 Monocytes (%) (Auto) 9.5 Eosinophils (%) (Auto) 1.3 Basophils (%) (Auto) 0.8 Neutrophils # (Auto) 4.0 Lymphocytes # (Auto) 1.4 Monocytes # (Auto) 0.6 Eosinophils # (Auto) 0.1 Basophils # (Auto) 0.1 CBC Comment DIFF FINAL Differential Comment Blood Urea Nitrogen 5 Creatinine 0.53 Random Glucose 116 Calcium Level 8.2 Sodium Level 138 Potassium Level 3.7 Chloride Level 104 Carbon Dioxide Level 25.8 Anion Gap 8 Estimat Glomerular Filtration Rate 122 Date/Time Source Procedure Growth Status 09/05/17 14:50 Blood Peripheral Aerobic Blood Culture Pending Received 09/05/17 14:50 Blood Peripheral Anaerobic Blood Culture Pending Received (Chelsea Oviedo MD R1) Result Diagram: 09/05/17 1140 09/05/17 1140 Caprini VTE Risk Assessment Caprini VTE Risk Assessment: Mod/High Risk (score >= 2) Caprini Risk Assessment Model Point Value = 1 Point Value = 2 Point Value = 3 Point Value = 5 Age 41-60 Minor surgery BMI > 25 kg/m2 Swollen legs Varicose veins or History of unexplained or recurrent spontaneous Oral contraceptives or hormone replacement Sepsis (< 1 month) Serious lung disease, including pneumonia (< 1 month) Abnormal pulmonary function Acute myocardial infarction Congestive heart failure (< 1 month) History of inflammatory bowel disease Medical patient at bed rest Age 61-74 Arthroscopic surgery Major open surgery (> 45 min) Laparoscopic surgery (> 45 min) Malignancy Confined to bed (> 72 hours) Immobilizing plaster cast Central venous access Age >= 75 History of VTE Family history of VTE Factor V Leiden Prothrombin [id number] Lupus anticoagulant Anticardiolipin antibodies Elevated serum homocysteine Heparin-induced thrombocytopenia Other congenital or acquired thrombophilia Stroke (< 1 month) Elective arthroplasty Hip, pelvis, or leg fracture Acute spinal cord injury (< 1 month) Prophylaxis Regimen Total Risk Factor Score Risk Level Prophylaxis Regimen 0-1 Low Early ambulation 2 Moderate Order ONE of the following: *Sequential Compression Device (SCD) *Heparin 5000 units SQ BID 3-4 Higher Order ONE of the following medications: *Heparin 5000 units SQ TID *Enoxaparin/Lovenox 40 mg SQ daily (WT < 150 kg, CrCl > 30 mL/min) *Enoxaparin/Lovenox 30 mg SQ daily (WT < 150 kg, CrCl > 10-29 mL/min) *Enoxaparin/Lovenox 30 mg SQ BID (WT < 150 kg, CrCl > 30 mL/min) AND/OR *Sequential Compression Device (SCD) 5 or more Highest Order ONE of the following medications: *Heparin 5000 units SQ TID (Preferred with Epidurals) *Enoxaparin/Lovenox 40 mg SQ daily (WT < 150 kg, CrCl > 30 mL/min) *Enoxaparin/Lovenox 30 mg SQ daily (WT < 150 kg, CrCl > 10-29 mL/min) *Enoxaparin/Lovenox 30 mg SQ BID (WT < 150 kg, CrCl > 30 mL/min) AND *Sequential Compression Device (SCD) (Chelsea Oviedo MD R1) Assessment and Plan Assessment and Plan Patient is a 52-year-old female with a history of COPD and Stage IV a squamous cell carcinoma of the larynx admitted for cellulitis (gastrostomy site). Will start patient on antibiotics, blood culture, wound culture, consult IR, breathing treatments, IV fluids (until gastrostomy tube is replaced). Will consult dietitian for dietary recs as patient does not know her dietary plan. Code Status Full (Chelsea Oviedo MD R1) Attending Attestation THIS CASE WAS DISCUSSED WITH THE RESIDENT PHYSICIANS. I HAVE REVIEWED THE RECORD AND AGREE WITH THE ABOVE NOTE AND PLAN OF CARE WAS DISCUSSED. I HAVE AUTHORIZED THE ORDER FOR ADMISSION TO AN IN-PATIENT STATUS. Patient was seen with the residents at the same time. On exam the patient is alert, oriented, comfortable, she is thin but not toxic appearing HEENT - t-piece site looks clear/clean and no irritation or redness, no drainage , PERRL, OP clear, edentulous CARDS -- rrr, no murmurs PULM -- she is moving air well, no retractions or accessory muscle use, but diffuse wheezing ABD -- s, good bowel sounds, left LQ peg tube insertion site is red, irritated, draining yellow pus with surrounding area of induration and erythema, this area is also TTP EXT - thin, good pulses, strength 5/5 all ext, no edema SKIN - no rashes, no lesions except as noted around the peg tube NEURO - alert, oriented, can ambulate without assistance - some slight suprapubic tenderness, no CVAT 1. Cellulitis that failed outpatient therapy -- continue broad-spectrum antibiotics, obtain culture, follow clinical picture 2. COPD -- possible mild COPD exacerbation vs chronic lung changes -- will start on nebs. (Peg Bess MD) Problem List: (1) Cellulitis of abdominal wall ICD Codes: L03.311 - Cellulitis of abdominal wall Status: Acute Plan: Cellitus of the skin surrounding the gastrostomy site Rest of abdomen is soft, nontender. No concern for peritonitis at this time. Continue vancomycin IV every 12 Wound cultures Blood cultures Monitor daily CBC (2) PEG tube malfunction ICD Codes: K94.23 - Gastrostomy malfunction Status: Acute Plan: Consulted IR for gastrostomy tube replacement Maintenance IV fluids Dietitian consult for feedings (3) Tracheostomy care ICD Codes: Z43.0 - Encounter for attention to tracheostomy Plan: Initially placed on 08/09/17 for dyspnea 2/2 cancer of the larynx Continue to monitor site Tracheostomy care per nursing (4) Head and neck malignancy ICD Codes: C76.0 - Malignant neoplasm of head, face and neck Plan: Diagnosed in July/2017 Following with oncology (5) COPD (chronic obstructive pulmonary disease) ICD Codes: J44.9 - Chronic obstructive pulmonary disease, unspecified Plan: She was diagnosed on hospitalization in July 2017. Home meds: Brovana nebulizer BID for maintenance treatment of bronchoconstriction, budesonide nebulizer 25 mg BID, and albuterol 1.25 q12H Expiratory rhonchi on lung exam today, satting well on room air CXR albuterol and DuoNeb nebs PRN Will continue home meds except for Brovana (daughter agrees to bring) Titrate oxygen to above 88% Monitor vitals (6) Former smoker, stopped smoking in distant past ICD Codes: Z87.891 - Personal history of nicotine dependence Plan: Nicotine patch daily (7) FEN Plan: Fluids: IR consulted for gastrostomy replacement. IVF Electrolytes: Supplement as needed Nutrition: Dietary consulted for tube feeds. At home, takes Jeveti 1.5, 300cc 4x /day GI prophylaxis: con't home Pepcid DVT prophylaxis: Lovenox,SCDs (Chelsea Oviedo MD R1) Physician Certification 2 Midnight Certification Type: Admission for Inpatient Services Order for Inpatient Services The services are ordered in accordance with Medicare regulations or non- Medicare payer requirements, as applicable. In the case of services not specified as inpatient-only, they are appropriately provided as inpatient services in accordance with the 2-midnight benchmark. Estimated LOS (days): 2 2 days is the estimated time the patient will need to remain in the hospital, assuming treatment plan goals are met and no additional complications. Post-Hospital Plan: Home (Chelsea Oviedo MD R1) Chelsea Oviedo MD R1 Sep 05, 2017 16:17 Peg Bess MD Sep 06, 2017 13:01
[2017-09-05] MEDS ORDERED: MIDAZOLAM HCL 2 MG/2 ML VIAL ONE (16:31)
[2017-09-05] MEDS ORDERED: fentaNYL CITRATE 250 MCG/5 ML AMP ONE (16:31)
--- NOTE | 2017-09-05 16:39 | RADRPT ---
EXAM DATE/TIME: 09/05/2017 14:30 [facility] COMPARISON: CT THORAX W CONTRAST, August 13, 2017, 10:05. CHEST SINGLE AP, August 07, 2017, 12:39. INDICATIONS : Cough MEDICAL HISTORY : Carcinoma, esophageal. Chronic obstructive pulmonary disease SURGICAL HISTORY : Infusaport, gastrostomy tube, Trach. ENCOUNTER: Initial ACUITY: 1 day PAIN SCORE: 0/10 LOCATION: chest FINDINGS: Right chest port is present the position and is accessed. Tracheostomy is stable. There is minimal ba silar parenchymal opacity bilaterally.. Cardiac contours are satisfactory. Thoracic skeleton is intac t. CONCLUSION: Minimal basilar parenchymal opacities. Renato Candelaria MD on September 05, 2017 at 16:36 Board Certified Radiologist. This report was verified electronically.
[2017-09-05] MEDS ORDERED: ALPRAZolam 0.25 MG TAB PO PRN (16:45)
[2017-09-05] MEDS ORDERED: IOHEXOL 350 MG/ML 50 ML BTL (for RAD DIAG) G-TUBE ONE (17:03)
[2017-09-05] MEDS ORDERED: [UNRECOGNIZED DRUG - OTHER] PEG SCH (18:00)
[2017-09-05] MEDS ORDERED: Vancomycin Consult Pharmacy 1 EA OTHER SCH (18:15)
[2017-09-05] MEDS: SODIUM CHLOR 0.9% 1000 ML INJ 1,000 ML IV SCH (18:50)
[2017-09-05] MEDS ORDERED: MORPHINE SULFATE 4 MG/ML INJ IV PUSH PRN (19:00)
[2017-09-05] MEDS ORDERED: MORPHINE SULFATE 2 MG/ML INJ IV PUSH PRN ×2 (19:00→23:00)
[2017-09-05 19:14] VITALS: BP 151/99; PULSE 78; RESP 20; TEMP 98.1; O2SAT 98
[2017-09-05 20:00] VITALS: BP 154/98; PULSE 81; RESP 18; TEMP 98.7; O2SAT 99
[2017-09-05] MEDS ORDERED: RESP: ALBUTEROL 1.25 MG/3 ML NEB (PRN) NEB (20:00)
[2017-09-05] MEDS ORDERED: RESP: ALBUTEROL 2.5 MG/IPRATROPIUM 0.5 MG NEB (PRN) NEB (20:00)
[2017-09-05] MEDS: RESP: BUDESONIDE 0.25 MG/2 ML NEB NEB SCH (20:00)
[2017-09-05] MEDS ORDERED: RESP: ALBUTEROL 2.5 MG/IPRATROPIUM 0.5 MG NEB (SCH) NEB PRN (20:00)
[2017-09-05] MEDS ORDERED: RESP: BUDESONIDE 0.25 MG/2 ML NEB NEB SCH (20:00)
[2017-09-05] MEDS: ENOXAPARIN SODIUM 40 MG/0.4 ML SYRINGE SQ SCH (20:36)
[2017-09-05] MEDS: MORPHINE SULFATE 4 MG/ML INJ IV PUSH PRN (20:36)
[2017-09-05] MEDS: SODIUM CHLORIDE 0.9% FLUSH 10 ML FLUSH IV FLUSH SCH (20:36)
[2017-09-05] MEDS: FAMOTIDINE 20 MG TAB PEG SCH (20:37)
[2017-09-05] MEDS ORDERED: RESP: ALBUTEROL 1.25 MG/3 ML NEB (SCH) NEB (21:00)
[2017-09-05] MEDS ORDERED: BROVANA INH SCH (21:00)
[2017-09-05 21:30] VITALS: O2SAT 98
[2017-09-06] VITALS (8 sets, daily range): BP systolic 114–143; BP diastolic 78–103; PULSE 75–97; RESP 17–21; TEMP 97.9–98.5; O2SAT 94–98
[2017-09-06] MEDS: VANCOMYCIN INJ 1,000 MG in SODIUM CHLOR 0.9% 250 ML INJ 250 ML IV SCH ×2 (00:50→12:19)
[2017-09-06] MEDS: MORPHINE SULFATE 4 MG/ML INJ IV PUSH PRN ×3 (00:50→10:10)
[2017-09-06] MEDS: SODIUM CHLOR 0.9% 1000 ML INJ 1,000 ML IV SCH (04:00)
[2017-09-06 05:48] LABS: AUTOMATED NEUTROPHIL # 2.3 TH/MM3 (1.8-7.7); BASOPHIL # 0.1 TH/MM3 (0-0.2); BASOPHIL % 1.2 % (0.0-2.0); EOSINOPHIL # 0.1 TH/MM3 (0-0.4); EOSINOPHIL % 3.2 % (0.0-4.0); HEMATOCRIT 32.7 % (35.0-46.0); HEMOGLOBIN 11.5 GM/DL (11.6-15.3); LYMPH % 33.9 % (9.0-44.0); LYMPHOCYTE # 1.6 TH/MM3 (1.0-4.8); MEAN CORPUSCULAR HEMOGLOBIN 33.4 PG (27.0-34.0); MEAN CORPUSCULAR HGB CONC 35.1 % (32.0-36.0); MEAN PLATELET VOLUME 7.7 FL (7.0-11.0); MONO % 11.6 % (0.0-8.0); MONOCYTE # 0.5 TH/MM3 (0-0.9); NEUT % 50.1 % (16.0-70.0); PLATELET COUNT 245 TH/MM3 (150-450); RED BLOOD COUNT 3.44 MIL/MM3 (4.00-5.30); RED CELL DISTRIBUTION WIDTH 12.9 % (11.6-17.2); WHITE BLOOD COUNT 4.6 TH/MM3 (4.0-11.0)
[2017-09-06 06:22] LABS: BICARBONATE 26.9 MEQ/L (21.0-32.0); CALCIUM 7.9 MG/DL (8.5-10.1); CREATININE 0.39 MG/DL (0.50-1.00)
--- NOTE | 2017-09-06 07:54 | RADRPT ---
EXAM DATE/TIME: 09/05/2017 16:34 [facility] COMPARISON: CT THORAX W CONTRAST, August 13, 2017, 10:05. INDICATIONS : Patient with a history of neck cancer, gastrostomy tube obstructed. MEDICAL HISTORY : Neck cancer HTN COPD Diabetic Endocrine disorders SURGICAL HISTORY : Tubal ligation ENCOUNTER: Initial ACUITY: 1 day PAIN SCORE: 7/10 LOCATION: lower quadrant FLUORO TIME: 1.9 minutes IMAGE SERIES: 3 SEDATION TIME: 30 minutes CONTRAST: 15 cc Omnipaque (iohexol) 350 MEDICATION(S): 1.) 4 mg midazolam (Versed) IV 2.) 250 mcg Fentanyl (Sublimaze) IV DEVICE(S): 1.) 22 [place] gastrostomy tube PROCEDURE : 1. Fluoroscopically guided gastrostomy tube exchange. 2. Conscious sedation with continuous EKG and oximetry monitoring. The risks, benefits and alternatives to the procedure were explained and verbal and written consent w as obtained. The site was prepped in sterile fashion. Full sterile technique was used, including ca p, mask, sterile gloves and gown and a large sterile sheet. Hand hygiene and 2% chlorhexidine and/or betadine/alcohol prep was utilized per protocol for cutaneous antisepsis. The skin and subcutaneous tissues were infiltrated with local anesthetic solution. The existing tube was accessed using sterile technique. Contrast injected through the catheter demons trates the catheter to outside of the stomach and in the gastrostomy tract. Therefore, catheter butt on was reduced with a peel-away sheath and the catheter was removed. A 4 [place] catheter and glide wi re were subsequently advanced through the gastrostomy tract and into the stomach. This was confirmed with small amount contrast. A new larger tube was advanced over the wire and positioned into the stom ach without difficulty. The balloon was inflated with appropriate volume of saline. Injection of po sitive contrast demonstrates good position of the gastrostomy tube. Conscious sedation was performed with the prescribed dosages and duration as above in the presence of an independent trained radiology nurse to assist in the monitoring of the patient. EKG and oximetry remained stable throughout the procedure. The patient tolerated the procedure well and there were n o complications. The patient was sent to post anesthesia recovery in stable condition. CONCLUSION: 1. Existing gastrostomy catheter was displaced into the tract. 2. Placement of new larger 22 [place] KIM type gastrostomy catheter. Catalino Dale MD on September 06, 2017 at 7:46 Board Certified Radiologist. This report was verified electronically.
[2017-09-06] MEDS: REMOVE OLD PATCH T-DERMAL SCH ×2 (08:00→09:00)
[2017-09-06] MEDS: RESP: BUDESONIDE 0.25 MG/2 ML NEB NEB SCH ×2 (08:00→19:44)
[2017-09-06] MEDS: RESP: ALBUTEROL 1.25 MG/3 ML NEB (SCH) NEB ×2 (08:32→19:43)
[2017-09-06] MEDS: FAMOTIDINE 20 MG TAB PEG SCH ×2 (08:47→21:32)
[2017-09-06] MEDS: SODIUM CHLORIDE 0.9% FLUSH 10 ML FLUSH IV FLUSH SCH ×2 (08:48→21:33)
[2017-09-06] MEDS: NICOTINE 21 MG/24 HR PATCH T-DERMAL SCH (08:48)
--- NOTE | 2017-09-06 14:14 | HHI.FPPN ---
Subjective Remarks Vital stable overnight. PEG tube was replaced with a larger tube. Patient states that she has not seen any pus or discharge from the gastrostomy insertion site, no increase in pain, no initiation of new pain (chest pain, abdominal pain), no fevers or shortness of breath. (Chelsea Oviedo MD R1) Objective Vitals Vital Signs Date Time Temp Pulse Resp B/P (MAP) Pulse Ox O2 Delivery O2 Flow Rate FiO2 09/06/17 12:07 98.3 84 17 114/78 (90) 95 09/06/17 08:35 98 09/06/17 08:19 98.5 75 18 130/86 (101) 95 09/06/17 05:24 16 09/06/17 04:00 97.9 81 17 129/92 (104) 96 09/06/17 04:00 96 T-Piece 3.00 28 09/06/17 00:00 98.5 97 18 143/94 (110) 94 09/05/17 21:30 98 09/05/17 20:00 98.7 81 18 154/98 (116) 99 09/05/17 19:14 98.1 78 20 151/99 (116) 98 09/05/17 16:20 21 I/O 09/05/17 09/05/17 09/05/17 09/06/17 09/06/17 09/06/17 07:00 15:00 23:00 07:00 15:00 23:00 Intake Total 262.5 ml 0 ml Output Total 400 ml Balance 262.5 ml -400 ml Intake Oral 0 ml IV Total 262.5 ml Output Urine Total 400 ml # Voids 1 # Bowel Movements 0 (Chelsea Oviedo MD R1) Result Diagram: 09/06/17 0500 09/06/17 0500 Imaging Last Impressions Chest X-Ray 09/05/17 1355 Signed Impressions: Service Date/Time: August 14:30 - CONCLUSION: Minimal basilar parenchymal opacities. Renato Candelaria MD Catheter Change 09/05/17 0000 Signed Impressions: Service Date/Time: August 16:34 - CONCLUSION: 1. Existing gastrostomy catheter was displaced into the tract. 2. Placement of new larger 22 Indonesian KIM type gastrostomy catheter. Catalino Dale MD Abdomen X-Ray 09/05/17 0000 Signed Impressions: Service Date/Time: August 11:10 - CONCLUSION: 1. Gastrostomy catheter projecting over the stomach. 2. Nonobstructive bowel gas pattern. Catalino Dale MD Objective Remarks GENERAL: This is a thin, pleasant lady resting comfortably in bed. SKIN: Cool and dry. Port site and place at the right upper chest. No erythema or swelling EYES: Pupils equal round and reactive. Extraocular motions intact. ENT: Airway patent. Mucous membranes moist. NECK: Trachea midline. Tracheostomy in place. No erythema or swelling of the surrounding skin. CARDIOVASCULAR: Regular rate and rhythm without murmurs, gallops, or rubs. RESPIRATORY: Lungs clear to auscultation, and proved from yesterday's exam. GASTROINTESTINAL: Site of gastrostomy tube and used to have 1 inch space of induration. Tenderness and redness have regressed since yesterday's exam. Her drainage seen from gastrostomy site. Rest of abdomen is nondistended and nontender. MUSCULOSKELETAL: Extremities without clubbing, cyanosis, or edema. NEUROLOGICAL: Awake and alert. No focal deficits. Patient is able words and sometimes whisper. (Chelsea Oviedo MD R1) A/P Assessment and Plan Patient is a 52-year-old female with a history of COPD and Stage IV a squamous cell carcinoma of the larynx admitted for cellulitis (gastrostomy site). Receiving antibiotics, blood culture, wound culture, consult IR, breathing treatments, IV fluids (until gastrostomy tube is replaced). Discharge Planning D/C per improvement in induration/cellulitis, possible tomorrow (Chelsea Oviedo MD R1) Attending Attestation Patient seen and examined. Case reviewed and discussed with the resident team. Agree with plan of care as discussed with me and documented in the resident note. Patient is clinically better -- if she continues to improve and tolerates tube feeds possibly dc in 1-2 days based on the clinical picture and wound culture. (Peg Bess MD) Problem List: (1) Cellulitis of abdominal wall ICD Codes: L03.311 - Cellulitis of abdominal wall Status: Acute Plan: Cellitus of the skin surrounding the gastrostomy site Rest of abdomen is soft, nontender. No concern for peritonitis at this time. Normal WBC count Continue vancomycin IV every 12H Wound cultures Blood cultures NG 1 day (2) PEG tube malfunction ICD Codes: K94.23 - Gastrostomy malfunction Status: Resolved (3) Tracheostomy care ICD Codes: Z43.0 - Encounter for attention to tracheostomy Plan: Initially placed on 08/09/17 for dyspnea 2/2 cancer of the larynx Continue to monitor site Tracheostomy care per nursing (4) Head and neck malignancy ICD Codes: C76.0 - Malignant neoplasm of head, face and neck Plan: Diagnosed in July/2017 Following with oncology (5) COPD (chronic obstructive pulmonary disease) ICD Codes: J44.9 - Chronic obstructive pulmonary disease, unspecified Plan: She was diagnosed on hospitalization in July 2017. Home meds: Brovana nebulizer BID for maintenance treatment of bronchoconstriction, budesonide nebulizer 25 mg BID, and albuterol 1.25 q12H Expiratory rhonchi on lung exam today, satting well on room air CXR shows minimal basilar opacities, likely chronic based on review of previous imaging albuterol and DuoNeb nebs PRN Will continue home meds except for Brovana (daughter agrees to bring) Titrate oxygen to above 88% Monitor vitals (6) Former smoker, stopped smoking in distant past ICD Codes: Z87.891 - Personal history of nicotine dependence Plan: Nicotine patch daily (7) FEN Plan: Fluids: PO Electrolytes: none Nutrition: Mechanical soft with thin liquids orally in addition to Jeveti 1.5, 300cc 4x/day GI prophylaxis: con't home Pepcid DVT prophylaxis: Lovenox,SCDs (Chelsea Oviedo MD R1) Chelsea Oviedo MD R1 Sep 06, 2017 14:14 Peg Bess MD Sep 06, 2017 14:42
[2017-09-06] MEDS: MORPHINE SULFATE ORAL SOLN 10 MG/0.5 ML SYRINGE PEG PRN ×2 (17:04→21:32)
[2017-09-06] MEDS: ENOXAPARIN SODIUM 40 MG/0.4 ML SYRINGE SQ SCH (21:33)
[2017-09-07] VITALS (8 sets, daily range): BP systolic 114–149; BP diastolic 82–100; PULSE 75–89; RESP 17–20; TEMP 98–98.3; O2SAT 94–98
[2017-09-07] MEDS ORDERED: PHARMACY ORDERED LAB ONE (00:45)
[2017-09-07] MEDS: VANCOMYCIN INJ 1,000 MG in SODIUM CHLOR 0.9% 250 ML INJ 250 ML IV SCH (01:36)
[2017-09-07] MEDS: MORPHINE SULFATE ORAL SOLN 10 MG/0.5 ML SYRINGE PEG PRN ×5 (01:36→21:28)
[2017-09-07] MEDS: FAMOTIDINE 20 MG TAB PEG SCH ×2 (08:50→20:28)
[2017-09-07] MEDS: SODIUM CHLORIDE 0.9% FLUSH 10 ML FLUSH IV FLUSH SCH ×2 (08:51→21:29)
[2017-09-07] MEDS: NICOTINE 21 MG/24 HR PATCH T-DERMAL SCH (08:51)
[2017-09-07] MEDS: REMOVE OLD PATCH T-DERMAL SCH (08:55)
--- NOTE | 2017-09-07 08:57 | HHI.FPPN ---
Subjective Remarks No acute issues overnight. Vitals are stable, patient remains afebrile. She denies any chest pain, shortness of breath, fever, chills, nausea or vomiting. She is feeling well overall. (Ninfa Goldstein MD, R3) Objective Vitals Vital Signs Date Time Temp Pulse Resp B/P (MAP) Pulse Ox O2 Delivery O2 Flow Rate FiO2 09/07/17 04:00 98.0 77 19 134/93 (107) 97 09/07/17 02:36 16 09/07/17 00:00 98.1 89 19 149/92 (111) 98 09/06/17 20:00 97 T-Piece 4.50 28 09/06/17 20:00 98.2 95 21 140/103 (115) 94 09/06/17 19:43 97 Trach Collar 6.00 28 09/06/17 16:10 98.5 90 17 129/91 (104) 96 09/06/17 12:07 98.3 84 17 114/78 (90) 95 I/O 09/06/17 09/06/17 09/06/17 09/07/17 09/07/17 09/07/17 07:00 15:00 23:00 07:00 15:00 23:00 Intake Total 0 ml 1150 ml 340 ml Output Total 400 ml Balance -400 ml 1150 ml 340 ml Intake Oral 0 ml 340 ml IV Total 1150 ml Output Urine Total 400 ml # Voids 1 3 2 # Bowel Movements 0 0 (Ninfa Goldstein MD, R3) Result Diagram: 09/06/17 0500 09/06/17 0500 Imaging Last Impressions Chest X-Ray 09/05/17 1355 Signed Impressions: Service Date/Time: August 14:30 - CONCLUSION: Minimal basilar parenchymal opacities. Renato Candelaria MD Catheter Change 09/05/17 0000 Signed Impressions: Service Date/Time: August 16:34 - CONCLUSION: 1. Existing gastrostomy catheter was displaced into the tract. 2. Placement of new larger 22 Egyptian KIM type gastrostomy catheter. Catalino Dale MD Abdomen X-Ray 09/05/17 0000 Signed Impressions: Service Date/Time: Thursday, September 05, 2017 11:10 - CONCLUSION: 1. Gastrostomy catheter projecting over the stomach. 2. Nonobstructive bowel gas pattern. Catalino Dale MD Objective Remarks GENERAL: This is a thin, pleasant lady resting comfortably in bed. SKIN: Cool and dry. Port site and place at the right upper chest. No erythema or swelling EYES: Pupils equal round and reactive. Extraocular motions intact. ENT: Airway patent. Mucous membranes moist. NECK: Trachea midline. Tracheostomy in place. No erythema or swelling of the surrounding skin. CARDIOVASCULAR: Regular rate and rhythm without murmurs, gallops, or rubs. RESPIRATORY: Lungs clear to auscultation, and proved from yesterday's exam. GASTROINTESTINAL: Site of g-tube clean, dry, and intact without bleeding or drainage. Significant improvement in surrounding erythema since previous exam, however 4x1cm area of erythema over a 3x1cm area of induration persists to the left of the g-tube. MUSCULOSKELETAL: Extremities without clubbing, cyanosis, or edema. NEUROLOGICAL: Awake and alert. No focal deficits. 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 Discharge Planning Anticipate discharge home tomorrow pending further clinical improvement. (Ninfa Goldstein MD, R3) Attending Attestation Case reviewed and discussed with the resident team. Agree with plan of care as discussed with me and documented in the resident note. (Peg Bess MD) Problem List: (1) Cellulitis of abdominal wall ICD Codes: L03.311 - Cellulitis of abdominal wall Status: Acute Plan: Improving. Cellulitis of the skin surrounding the gastrostomy site s/p G-tube replacement by IR on 09/05 Vitals stable, no leukocytosis Continue vancomycin IV every 12H (started 09/05) 09/05 Wound cultures growing enterobacter cloacae and GBS 09/05 Blood cultures NG in 1 day (2) Tracheostomy care ICD Codes: Z43.0 - Encounter for attention to tracheostomy Status: Chronic Plan: Initially placed on 08/09/17 for dyspnea 2/2 cancer of the larynx Continue to monitor site Tracheostomy care per nursing (3) Head and neck malignancy ICD Codes: C76.0 - Malignant neoplasm of head, face and neck Status: Chronic Plan: Diagnosed in July/2017 Following with oncology (4) COPD (chronic obstructive pulmonary disease) ICD Codes: J44.9 - Chronic obstructive pulmonary disease, unspecified Status: Chronic Plan: Continue Home meds: Brovana nebulizer BID for maintenance treatment of bronchoconstriction, budesonide nebulizer 25 mg BID, and albuterol 1.25 q12H CXR shows minimal basilar opacities, likely chronic based on review of previous imaging albuterol and DuoNeb nebs PRN Titrate oxygen to above 88% Monitor vitals (5) Former smoker, stopped smoking in distant past ICD Codes: Z87.891 - Personal history of nicotine dependence Status: Chronic Plan: Nicotine patch daily (6) FEN Status: Acute Plan: Fluids: PO Electrolytes: monitor and replete PRN Nutrition: Mechanical soft with thin liquids orally in addition to Jeveti 1.5, 300cc 4x/day GI prophylaxis: con't home Pepcid DVT prophylaxis: Lovenox, SCDs (Ninfa Goldstein MD, R3) Problem Qualifiers (1) COPD (chronic obstructive pulmonary disease): Qualified Codes: J44.9 - Chronic obstructive pulmonary disease, unspecified Ninfa Goldstein MD, R3 Sep 07, 2017 08:56 Peg Bess MD Sep 07, 2017 15:34
[2017-09-07] MEDS: RESP: BUDESONIDE 0.25 MG/2 ML NEB NEB SCH ×2 (10:20→19:49)
[2017-09-07] MEDS: RESP: ALBUTEROL 1.25 MG/3 ML NEB (SCH) NEB ×2 (10:20→19:49)
[2017-09-07 10:58] LABS: HEMOGLOBIN 12.8 GM/DL (11.6-15.3); MEAN CELL VOLUME 95.9 FL (80.0-100.0); MEAN CORPUSCULAR HEMOGLOBIN 33.2 PG (27.0-34.0); MEAN CORPUSCULAR HGB CONC 34.6 % (32.0-36.0); MEAN PLATELET VOLUME 7.8 FL (7.0-11.0); PLATELET COUNT 273 TH/MM3 (150-450); RED BLOOD COUNT 3.86 MIL/MM3 (4.00-5.30); RED CELL DISTRIBUTION WIDTH 12.9 % (11.6-17.2); WHITE BLOOD COUNT 5.1 TH/MM3 (4.0-11.0)
[2017-09-07 11:19] LABS: CREATININE 0.39 MG/DL (0.50-1.00)
[2017-09-07] MEDS: ONDANSETRON HCL 4 MG/2 ML VIAL IVP PRN ×2 (11:46→19:21)
[2017-09-07] MEDS: VANCOMYCIN INJ 1,250 MG in SODIUM CHLOR 0.9% 250 ML INJ 250 ML IV SCH (14:47)
[2017-09-07] MEDS: ENOXAPARIN SODIUM 40 MG/0.4 ML SYRINGE SQ SCH (20:28)
[2017-09-07] MEDS ORDERED: SODIUM CHLORIDE 0.9% FLUSH 10 ML FLUSH IV FLUSH PRN ×2 (23:15→23:45)
[2017-09-08] VITALS (7 sets, daily range): BP systolic 123–158; BP diastolic 90–108; PULSE 78–90; RESP 18–20; TEMP 98–98.7; O2SAT 94–98
[2017-09-08] MEDS: VANCOMYCIN INJ 1,250 MG in SODIUM CHLOR 0.9% 250 ML INJ 250 ML IV SCH ×2 (00:34→12:50)
[2017-09-08] MEDS: MORPHINE SULFATE ORAL SOLN 10 MG/0.5 ML SYRINGE PEG PRN ×3 (04:31→19:19)
[2017-09-08] MEDS: RESP: BUDESONIDE 0.25 MG/2 ML NEB NEB SCH ×2 (08:39→19:37)
[2017-09-08] MEDS: RESP: ALBUTEROL 1.25 MG/3 ML NEB (SCH) NEB ×2 (08:40→19:37)
[2017-09-08] MEDS: NICOTINE 21 MG/24 HR PATCH T-DERMAL SCH (09:14)
[2017-09-08] MEDS: REMOVE OLD PATCH T-DERMAL SCH (09:14)
[2017-09-08] MEDS: FAMOTIDINE 20 MG TAB PEG SCH ×2 (09:15→21:00)
[2017-09-08] MEDS: SODIUM CHLORIDE 0.9% FLUSH 10 ML FLUSH IV FLUSH SCH ×2 (09:15→21:01)
--- NOTE | 2017-09-08 10:24 | HHI.FPPN ---
Subjective Remarks Patient doing well, concerned about displaceable PEG tube. States that when she goes to the bathroom, the tube starts to "come out." No other concerns. (Chelsea Oviedo MD R1) Objective Vitals Vital Signs Date Time Temp Pulse Resp B/P (MAP) Pulse Ox O2 Delivery O2 Flow Rate FiO2 09/08/17 08:55 98.2 90 123/96 (105) 95 09/08/17 08:45 97 Trach Collar 21 09/08/17 04:31 Trach Collar 21 Humidified 09/08/17 00:00 Trach Collar 21 Humidified 09/08/17 00:00 98.2 84 20 125/90 (102) 94 09/07/17 20:00 98.1 84 20 133/94 (107) 95 09/07/17 20:00 Trach Collar 21 Humidified 09/07/17 19:58 98 Trach Collar 6.00 21 09/07/17 15:00 98.1 89 18 114/82 (93) 98 09/07/17 12:00 98.3 80 18 140/100 (113) 94 I/O 09/07/17 09/07/17 09/07/17 09/08/17 09/08/17 09/08/17 07:00 15:00 23:00 07:00 15:00 23:00 Intake Total 340 ml 800 ml 420 ml Output Total 420 ml Balance 340 ml 800 ml 0 ml Intake Oral 340 ml 800 ml 420 ml Output Urine Total 420 ml # Voids 2 4 # Bowel Movements 0 0 (Chelsea Oviedo MD R1) Result Diagram: 09/07/17 1007 09/07/17 1007 Objective Remarks GENERAL: This is a thin, pleasant lady resting comfortably in bed. SKIN: Cool and dry. Port site and place at the right upper chest. No erythema or swelling EYES: Pupils equal round and reactive. Extraocular motions intact. ENT: Airway patent. Mucous membranes moist. NECK: Trachea midline. Tracheostomy in place. No erythema or swelling of the surrounding skin. CARDIOVASCULAR: Regular rate and rhythm without murmurs, gallops, or rubs. RESPIRATORY: Lungs clear to auscultation, and proved from yesterday's exam. GASTROINTESTINAL: Site of g-tube clean, dry, and intact without bleeding or drainage. Significant improvement in surrounding erythema since previous exam, however a 3x1cm area of induration persists to the left of the g-tube. Tube has moved out further after the patient returned from the bathroom. In the room , patient pushes the tube back while appearing visibly in pain while doing so. MUSCULOSKELETAL: Extremities without clubbing, cyanosis, or edema. NEUROLOGICAL: Awake and alert. No focal deficits. 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 Discharge Planning Cellulitis has improved since admission. Plan to continue course of antibiotics PO; however, concern for tube displacement. Contacted IR and case management to facilitate assessment of tube position before discharge. Discharge today pending IR assessment. (Chelsea Oviedo MD R1) Attending Attestation Patient seen and examined. Case reviewed and discussed with the resident team. Agree with plan of care as discussed with me and documented in the resident note. The patient is clinically well and she is tolerating her tube feeds. She is afebrile and feels like she is at her baseline for her breathing. Tube is somewhat more mobile that her last one and she is concerned there may be an issue with the tube. On exam the area of infection is much improved, minimal erythema, some induration, no drainage. She is stable and ready to be d/c once IR assess the tube to ensure there is no issue. PO bactrim is appropriate based on the cultures and her clinical course. (Peg Bess MD) Problem List: (1) Cellulitis of abdominal wall ICD Codes: L03.311 - Cellulitis of abdominal wall Status: Acute Plan: Improving. Cellulitis of the skin surrounding the gastrostomy site s/p G-tube replacement by IR on 09/05 Vitals stable 09/05 Wound cultures growing enterobacter cloacae and GBS 09/05 Blood cultures NG in 3 days Vancomycin IV every 12H (started 09/05-09/08). D/C with PO Bactrim for at least 10 days (13 days) (2) Tracheostomy care ICD Codes: Z43.0 - Encounter for attention to tracheostomy Status: Chronic Plan: Initially placed on 08/09/17 for dyspnea 2/2 cancer of the larynx Continue to monitor site Tracheostomy care per nursing (3) Head and neck malignancy ICD Codes: C76.0 - Malignant neoplasm of head, face and neck Status: Chronic Plan: Diagnosed in July/2017 Following with oncology (4) COPD (chronic obstructive pulmonary disease) ICD Codes: J44.9 - Chronic obstructive pulmonary disease, unspecified Status: Chronic Plan: Continue Home meds: Brovana nebulizer BID for maintenance treatment of bronchoconstriction, budesonide nebulizer 25 mg BID, and albuterol 1.25 q12H albuterol and DuoNeb nebs PRN Monitor vitals (5) Former smoker, stopped smoking in distant past ICD Codes: Z87.891 - Personal history of nicotine dependence Status: Chronic Plan: Nicotine patch daily (6) FEN Status: Acute Plan: Fluids: PO Electrolytes: monitor and replete PRN Nutrition: Mechanical soft with thin liquids orally in addition to Jeveti 1.5, 300cc 4x/day GI prophylaxis: con't home Pepcid DVT prophylaxis: Lovenox, SCDs (Chelsea Oviedo MD R1) Problem Qualifiers (1) COPD (chronic obstructive pulmonary disease): Qualified Codes: J44.9 - Chronic obstructive pulmonary disease, unspecified Chelsea Oviedo MD R1 Sep 08, 2017 10:24 Peg Bess MD Sep 08, 2017 13:36
--- NOTE | 2017-09-08 10:25 | HHI.FPPN ---
Objective Vitals Vital Signs Date Time Temp Pulse Resp B/P (MAP) Pulse Ox O2 Delivery O2 Flow Rate FiO2 09/08/17 08:55 98.2 90 123/96 (105) 95 09/08/17 08:45 97 Trach Collar 21 09/08/17 04:31 Trach Collar 21 Humidified 09/08/17 00:00 Trach Collar 21 Humidified 09/08/17 00:00 98.2 84 20 125/90 (102) 94 09/07/17 20:00 98.1 84 20 133/94 (107) 95 09/07/17 20:00 Trach Collar 21 Humidified 09/07/17 19:58 98 Trach Collar 6.00 21 09/07/17 15:00 98.1 89 18 114/82 (93) 98 09/07/17 12:00 98.3 80 18 140/100 (113) 94 I/O 09/07/17 09/07/17 09/07/17 09/08/17 09/08/17 09/08/17 07:00 15:00 23:00 07:00 15:00 23:00 Intake Total 340 ml 800 ml 420 ml Output Total 420 ml Balance 340 ml 800 ml 0 ml Intake Oral 340 ml 800 ml 420 ml Output Urine Total 420 ml # Voids 2 4 # Bowel Movements 0 0 Result Diagram: 09/07/17 1007 09/07/17 1007 Objective Remarks GENERAL: This is a thin, pleasant lady resting comfortably in bed. SKIN: Cool and dry. Port site and place at the right upper chest. No erythema or swelling EYES: Pupils equal round and reactive. Extraocular motions intact. ENT: Airway patent. Mucous membranes moist. NECK: Trachea midline. Tracheostomy in place. No erythema or swelling of the surrounding skin. CARDIOVASCULAR: Regular rate and rhythm without murmurs, gallops, or rubs. RESPIRATORY: Lungs clear to auscultation, and proved from yesterday's exam. GASTROINTESTINAL: Site of g-tube clean, dry, and intact without bleeding or drainage. Significant improvement in surrounding erythema since previous exam, however 4x1cm area of erythema over a 3x1cm area of induration persists to the left of the g-tube. MUSCULOSKELETAL: Extremities without clubbing, cyanosis, or edema. NEUROLOGICAL: Awake and alert. No focal deficits. 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 Discharge Planning Anticipate discharge home tomorrow pending further clinical improvement. Problem List: (1) Cellulitis of abdominal wall ICD Codes: L03.311 - Cellulitis of abdominal wall Status: Acute Plan: Improving. Cellulitis of the skin surrounding the gastrostomy site s/p G-tube replacement by IR on 09/05 Vitals stable, no leukocytosis Continue vancomycin IV every 12H (started 09/05) 09/05 Wound cultures growing enterobacter cloacae and GBS 09/05 Blood cultures NG in 1 day (2) Tracheostomy care ICD Codes: Z43.0 - Encounter for attention to tracheostomy Status: Chronic Plan: Initially placed on 08/09/17 for dyspnea 2/2 cancer of the larynx Continue to monitor site Tracheostomy care per nursing (3) Head and neck malignancy ICD Codes: C76.0 - Malignant neoplasm of head, face and neck Status: Chronic Plan: Diagnosed in July/2017 Following with oncology (4) COPD (chronic obstructive pulmonary disease) ICD Codes: J44.9 - Chronic obstructive pulmonary disease, unspecified Status: Chronic Plan: Continue Home meds: Brovana nebulizer BID for maintenance treatment of bronchoconstriction, budesonide nebulizer 25 mg BID, and albuterol 1.25 q12H CXR shows minimal basilar opacities, likely chronic based on review of previous imaging albuterol and DuoNeb nebs PRN Titrate oxygen to above 88% Monitor vitals (5) Former smoker, stopped smoking in distant past ICD Codes: Z87.891 - Personal history of nicotine dependence Status: Chronic Plan: Nicotine patch daily (6) FEN Status: Acute Plan: Fluids: PO Electrolytes: monitor and replete PRN Nutrition: Mechanical soft with thin liquids orally in addition to Jeveti 1.5, 300cc 4x/day GI prophylaxis: con't home Pepcid DVT prophylaxis: Lovenox, SCDs Problem Qualifiers (1) COPD (chronic obstructive pulmonary disease): Qualified Codes: J44.9 - Chronic obstructive pulmonary disease, unspecified Chelsea Oviedo MD R1 Sep 08, 2017 10:25
[2017-09-08] MEDS ORDERED: BACT800T5 PO (11:55)
--- NOTE | 2017-09-08 11:55 | HHI.DCPOC ---
Discharge Care Plan Diagnosis: (1) Cellulitis of abdominal wall (2) PEG tube malfunction Goals to Promote Your Health * To prevent worsening of your condition and complications * To maintain your health at the optimal level Directions to Meet Your Goals Take your medications as prescribed Follow your dietary instruction Follow activity as directed Keep your appointments as scheduled Take your immunizations and boosters as scheduled If your symptoms worsen call your PCP, if no PCP go to Urgent Care Center or Emergency Room Smoking is Dangerous to Your Health. Avoid second hand smoke Call the 24-hour hour crisis hotline for domestic abuse at Chelsea Oviedo MD R1 Sep 08, 2017 11:55
[2017-09-08] MEDS ORDERED: PHARMACY ORDERED LAB ONE (12:45)
--- NOTE | 2017-09-08 15:41 | HHI.FF ---
Face to Face Verification Diagnosis: (1) Cellulitis of abdominal wall (2) PEG tube malfunction Home Health Nursing Order: Medical education Signs/symptoms of disease process Wound care and dressing changes I have seen patient Ruben Jorge on 09/08/17. My clinical findings support the need for the requested home health care services because: Limited ability to care for self I certify that my clinical findings support that this patient is homebound because: Impaired cognitive ability/safety Chelsea Oviedo MD R1 Sep 08, 2017 15:41
[2017-09-08] MEDS: ENOXAPARIN SODIUM 40 MG/0.4 ML SYRINGE SQ SCH (21:00)
[2017-09-09 00:01] VITALS: BP 164/93; PULSE 88; RESP 21; TEMP 98.5; O2SAT 98
[2017-09-09] MEDS: VANCOMYCIN INJ 1,250 MG in SODIUM CHLOR 0.9% 250 ML INJ 250 ML IV SCH ×2 (00:05→13:31)
[2017-09-09] MEDS: MORPHINE SULFATE ORAL SOLN 10 MG/0.5 ML SYRINGE PEG PRN ×3 (00:05→13:32)
[2017-09-09 05:24] VITALS: BP 127/88; PULSE 78; RESP 20; TEMP 98.4; O2SAT 99
[2017-09-09 07:40] LABS: CREATININE 0.57 MG/DL (0.50-1.00)
[2017-09-09] MEDS: RESP: ALBUTEROL 1.25 MG/3 ML NEB (SCH) NEB (07:55)
[2017-09-09] MEDS: RESP: BUDESONIDE 0.25 MG/2 ML NEB NEB SCH (07:55)
[2017-09-09 08:00] VITALS: BP 137/105; PULSE 82; RESP 19; TEMP 97.6; O2SAT 94
[2017-09-09 08:01] VITALS: O2SAT 98
--- NOTE | 2017-09-09 09:25 | HHI.FPPN ---
Subjective Remarks No problems/complaints, no issues overnight. (Chelsea Oviedo MD R1) Objective Vitals Vital Signs Date Time Temp Pulse Resp B/P (MAP) Pulse Ox O2 Delivery O2 Flow Rate FiO2 09/09/17 08:01 98 Trach Collar 5.00 21 09/09/17 08:00 97.6 82 19 137/105 (116) 94 09/09/17 05:24 98.4 78 20 127/88 (101) 99 09/09/17 00:01 98.5 88 21 164/93 (116) 98 09/08/17 21:56 98.7 87 18 139/95 (110) 09/08/17 19:40 98 Trach Collar 21 09/08/17 18:46 98.2 81 141/100 (114) 95 09/08/17 14:34 Trach Collar 21 Humidified 09/08/17 12:55 98.0 78 158/108 (125) 96 I/O 09/08/17 09/08/17 09/08/17 09/09/17 09/09/17 09/09/17 07:00 15:00 23:00 07:00 15:00 23:00 Intake Total 420 ml 240 ml Output Total 420 ml Balance 0 ml 240 ml Intake Oral 420 ml 240 ml Output Urine Total 420 ml # Voids 3 # Bowel Movements 0 (Chelsea Oviedo MD R1) Result Diagram: 09/07/17 1007 09/09/17 0628 Objective Remarks GENERAL: This is a thin, pleasant lady resting comfortably in bed. SKIN: Cool and dry. Port site and place at the right upper chest. No erythema or swelling EYES: Pupils equal round and reactive. Extraocular motions intact. ENT: Airway patent. Mucous membranes moist. NECK: Trachea midline. Tracheostomy in place. No erythema or swelling of the surrounding skin. CARDIOVASCULAR: Regular rate and rhythm without murmurs, gallops, or rubs. RESPIRATORY: Lungs clear to auscultation, and proved from yesterday's exam. GASTROINTESTINAL: Site of g-tube clean, dry, and intact without bleeding or drainage. Tube is still movable. MUSCULOSKELETAL: Extremities without clubbing, cyanosis, or edema. NEUROLOGICAL: Awake and alert. No focal deficits. 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 Discharge Planning Discharge today pending IR assessment. (Chelsea Oviedo MD R1) Attending Attestation Patient seen and examined. Case reviewed and discussed with the resident team. Agree with plan of care as discussed with me and documented in the resident note. (Peg Bess MD) Problem List: (1) Cellulitis of abdominal wall ICD Codes: L03.311 - Cellulitis of abdominal wall Status: Acute Plan: Cellulitis of the skin surrounding the gastrostomy site s/p G-tube replacement by IR on 09/05 Vitals stable 09/05 Wound cultures growing enterobacter cloacae and GBS 09/05 Blood cultures NG in 3 days Vancomycin IV every 12H (started 09/05-09/09). D/C with PO Bactrim for at least 10 days (14 days) (2) Tracheostomy care ICD Codes: Z43.0 - Encounter for attention to tracheostomy Status: Chronic Plan: Initially placed on 08/09/17 for dyspnea 2/2 cancer of the larynx Continue to monitor site Tracheostomy care per nursing (3) Head and neck malignancy ICD Codes: C76.0 - Malignant neoplasm of head, face and neck Status: Chronic Plan: Diagnosed in July/2017 Following with oncology (4) COPD (chronic obstructive pulmonary disease) ICD Codes: J44.9 - Chronic obstructive pulmonary disease, unspecified Status: Chronic Plan: Continue Home meds: Brovana nebulizer BID for maintenance treatment of bronchoconstriction, budesonide nebulizer 25 mg BID, and albuterol 1.25 q12H albuterol and DuoNeb nebs PRN Monitor vitals (5) Former smoker, stopped smoking in distant past ICD Codes: Z87.891 - Personal history of nicotine dependence Status: Chronic Plan: Nicotine patch daily (6) FEN Status: Acute Plan: Fluids: PO Electrolytes: monitor and replete PRN Nutrition: Mechanical soft with thin liquids orally in addition to Jeveti 1.5, 300cc 4x/day GI prophylaxis: con't home Pepcid DVT prophylaxis: Lovenox, SCDs (Chelsae Oviedo MD R1) Problem Qualifiers (1) COPD (chronic obstructive pulmonary disease): Qualified Codes: J44.9 - Chronic obstructive pulmonary disease, unspecified Chelsea Oviedo MD R1 Sep 09, 2017 09:25 Peg Bess MD Sep 09, 2017 18:58
[2017-09-09] MEDS: NICOTINE 21 MG/24 HR PATCH T-DERMAL SCH (09:32)
[2017-09-09] MEDS: REMOVE OLD PATCH T-DERMAL SCH (09:32)
[2017-09-09] MEDS: FAMOTIDINE 20 MG TAB PEG SCH (09:32)
[2017-09-09] MEDS: SODIUM CHLORIDE 0.9% FLUSH 10 ML FLUSH IV FLUSH SCH (09:37)
[2017-09-09 12:00] VITALS: BP 122/92; PULSE 89; RESP 19; TEMP 98; O2SAT 96
--- NOTE | 2017-09-09 14:52 | RADRPT ---
EXAM DATE/TIME: 09/09/2017 12:12 [facility] COMPARISON: No previous studies available for comparison. INDICATIONS : Drainage from around g tube site. ORAL CONTRAST: No oral contrast ingested. RADIATION DOSE: 6.64 CTDIvol (mGy) MEDICAL HISTORY : Hypertension. Chronic obstructive pulmonary disease. Carcinoma, pharyngeal. SURGICAL HISTORY : Tubal ligation. Hysterectomy. ENCOUNTER: Initial ACUITY: 1 day PAIN SCALE: 5/10 LOCATION: Abdomen TECHNIQUE: Volumetric scanning of the abdomen was performed. Using automated exposure control and adjustment of the mA and/or kV according to patient size, radiation dose was kept as low as reasonably achievable to obtain optimal diagnostic quality images. DICOM format image data is available electronically for review and comparison. FINDINGS: LOWER LUNGS: Mild atelectasis in the posterior lung bases. LIVER: Several cysts present, largest day 4 cm cyst in the left lobe. No evidence of biliary ductal dilatati on. SPLEEN: Normal size without lesion. PANCREAS: Within normal limits. KIDNEYS: Normal in size and shape. There is no mass, stone, or hydronephrosis. ADRENAL GLANDS: Within normal limits. AORTA/RETROPERITONEAL: There is no aneurysm or lymphadenopathy. BOWEL/MESENTERY: A gastrostomy is present with balloon well positioned and fully inflated in the distal body of the st omach. The gastrostomy tube tract is notable for mild indurative changes without evidence of focal fl uid collection to suggest subcutaneous abscess. The bowel structures are otherwise unremarkable. MUSCULOSKELETAL: Within normal limits for patient age. CONCLUSION: Gastrostomy tube in good position. Mild indurative changes along the tube tract expected post recent dislodgment. I inspected the site while the patient was in CT and the site actually looks quite good. Continue gauze dressing changes as needed for minimal expected drainage. Renato Candelaria MD on September 09, 2017 at 14:22 Board Certified Radiologist. This report was verified electronically.
[2017-09-09 16:00] VITALS: BP 131/98; PULSE 90; RESP 18; TEMP 98; O2SAT 98
== END 2017-09-09 16:20 | disposition home health service (06) | DRG 394 ==
LOC: NEPE 10:31 → NEDH 13:05 → OBSVTOIN 14:19 → N04A 18:40 → HPAC 18:57 → N04B 19:01 → N04A 19:05
PROVIDERS: ADMIT Family Medicine; ATTEND Family Medicine
PROC: 0D20XUZ Change Feeding Device in Upper Intestinal Tract, External Approach (ICD-10-PCS; principal; 2017-09-05)
DX: K94.22 Gastrostomy infection (principal); L03.311 Cellulitis of abdominal wall; C32.9 Malignant neoplasm of larynx, unspecified; Z93.0 Tracheostomy status; J44.1 Chronic obstructive pulmonary disease with (acute) exacerbation; I10 Essential (primary) hypertension; K21.9 Gastro-esophageal reflux disease without esophagitis; B96.89 Other specified bacterial agents as the cause of diseases classified elsewhere; K94.23 Gastrostomy malfunction; Z86.14 Personal history of Methicillin resistant Staphylococcus aureus infection; Z87.891 Personal history of nicotine dependence
CPT/HCPCS: 36591; 49440; 71046; 74018; 74150; 80048; 80202; 82565; 85025; 85027; 86403; 87040; 87070; 87077; 87186; 87205; 94640; 94664; 99152; 99153; 99212; 99215; A7521; C1769; C1887; C1894; G0463; J1642; J1650; J2250; J2270; J2405; J3010; J3370; J7030; J7050; J7613; J7626; Q9967